=== PATIENT | female | born 1945 | race Caucasian/White ===

== ENCOUNTER 2024-10-10 15:45 | Inpatient (IN) | payer OTHER ==
--- OUTSIDE RECORDS SUMMARY | 2024-10-10 15:55 | XMS REPORT | Continuity of Care Document ---
Author Name Unknown Address [address] 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 Phone JANIS MARKHAM Primary Care Physician Unavailable JANIS MARKHAM Attending Clinician Un available VICTOR M CALDWELL Attending Clinician Unavailable Jorge Luis Mchugh Attending Clinician JORGE LUIS VU Attending Clinician Unavailable Unknown, Attending Attending Clinician Unavailab le Doctor Unassigned, [place] Attending Clinician U Victor M Vega MD Attending Clinician [phone] Dung Poe MD Attending Clinician [phone] DUNG POE Attending Clinician Unavailelizabeth e Bobbi Altman Attending Clinician BOBBI WILSON Attending Clinician Unavailable VICTOR M CALDWELL Admitting Clinician Unavailable Payers Payer Name Policy Type Policy Number Effective Date Expirati on Date Source [employer] MA[employer]GED MEDICARE O-MAYURI [id number] 2020 00:00:00 Problems Condition Name Condition Details Condition Category Status Onset Date Resolution Date Last Treatment Date Treating Clinician Comments Source No known active problems No known active problems Disease [facility] Allergies, Adverse Reactions, Alerts Allergy Name Allergy Type Status Severity Reaction(s) Onset Date Inactive Date Treating Clinician Comments Source jodee Underwood ty to adverse reaction to drug Inactiv e 2024-0 2-19 00:00: 00 Sae Matias Codeine Sulfate - Oral Propensi ty to adverse reaction to drug Active 2021-0230 00:00: 00 Sae Matias Codeine Propensi ty to adverse reaction to drug Inactiv e 05-06 00:00: 00 Sae Matias Codeine Propensi ty to adverse reaction s Active Nausea and/or Vomiting 2017-02 00:00: 00 [facility] CODEINE DRUG INGREDI Active N/V 2017-02 00:00: 00 [facility] Social History Social Habit Start Date Stop Date Quantity Comments Source Exposure to SARS-CoV-2 (event) Not sure [facility] Tobacco use and exposure 2023-06-24 00:00:00 2023-06-24 00:00:00 Smokeless tobacco non-user [facility] History of Social function 2020-10-22 00:00:00 2020-10-22 00:00:00 [facility] Sex assigned at 1945 00:00:00 1945 00:00:00 [facility] Smoking Status Start Date Stop Date Source Never smoked tobacco [facility] Medications Ordered Medication Name Filled Medication Name Start Date Stop Date Current Medication? Ordering Clinician Indication Dosage Frequency Signature (SIG) Comments Components Source ondansetron 4 mg disintegrat ing tablet 10-02 00:00: 00 Yes 1mg Sae Matias fluoxetine 40 mg capsule 10-02 00:00: 00 Yes 1mg Sae Matias atorvastati n 80 mg tablet 09-29 00:00: 00 Yes mg Sae Matias amlodipine 5 mg tablet 09-29 00:00: 00 Yes mg Sae Matias hydrochloro thiazide 25 mg tablet 09-29 00:00: 00 Yes mg Sae Matias losartan 100 mg tablet 09-29 00:00: 00 Yes mg Sae Matias atenolol 50 mg tablet 09-29 00:00: 00 Yes 1mg Sae Matias buspirone 10 mg tablet 09-19 00:00: 00 Yes 1mg Sae Matias zolpidem 10 mg tablet 09-19 00:00: 00 Yes 1mg Sae Matias atorvastati n 80 mg tablet 04-02 00:00: 00 Yes mg Sae Matias amlodipine 5 mg tablet 04-02 00:00: 00 Yes mg Sae Matias hydrochloro thiazide 25 mg tablet 04-02 00:00: 00 Yes mg Sae Matias losartan 100 mg tablet 04-02 00:00: 00 Yes mg Sae Matias atenolol 50 mg tablet 04-02 00:00: 00 Yes 1mg Sae Matias zolpidem 10 mg tablet 04-02 00:00: 00 Yes 1mg Sae Matias atorvastati n 80 mg tablet 2023-02 00:00: 00 Yes mg Sae Matias amlodipine 5 mg tablet 2023-02 00:00: 00 Yes mg Sae Matias omeprazole 20 mg capsule,del ayed release 2023-02 00:00: 00 Yes mg Sae Matias hydrochloro thiazide 25 mg tablet 2023-02 00:00: 00 Yes mg Sae Matias losartan 100 mg tablet 2023-02 00:00: 00 Yes mg Sae Matias triamcinolo ne acetonide 0.1 % topical cream 2023-02 00:00: 00 Yes 1% Sae Matias atenolol 50 mg tablet 2023-02 00:00: 00 Yes 1mg Sae Matias zolpidem 10 mg tablet 2023-02 00:00: 00 Yes 1mg Sae Matias omeprazole 20 mg capsule,del ayed release 16 00:00: 00 Yes mg Sae Matias cholecalcif marie (vitamin D3) 1,250 mcg (50,000 unit) capsule 08-08 00:00: 00 Yes 1(50,00 0 unit) Sae Matias atorvastati n 80 mg tablet 08-05 00:00: 00 Yes mg Sae Matias amlodipine 5 mg tablet 08-05 00:00: 00 Yes mg Sae Matias hydrochloro thiazide 25 mg tablet 08-05 00:00: 00 Yes mg Sae Matias losartan 100 mg tablet 08-05 00:00: 00 Yes mg Sae Matias atenolol 50 mg tablet 08-05 00:00: 00 Yes 1mg Sae Matias ALBUTEROL PA HFA 200 INH 06-23 00:00: 00 Yes Sae Matias TAKE 1 TABLET BY MOUTH IN THE MORNING AND IN THE EVENING FOR 10 DAYS 06-23 00:00: 00 Yes Sae Matias BENZONATATE 200MG 06-23 00:00: 00 Yes Sae Matias benzonatate 200 mg capsule 06-23 00:00: 00 07-04 04:59 :00 No [id number] 200mg Take 1 capsule by mouth 3 (three) times daily as needed for Cough for up to 10 days. [facility] albuterol 90 mcg/actuati on inhaler 06-23 00:00: 00 07-04 04:59 :00 No [id number] 2{puff} Inhale 2 Puffs every 6 (six) hours as needed for Wheezing for up to 10 days. [facility] amoxicillin -clavulanat e (AUGMENTIN) 875-125 mg per tablet 06-23 00:00: 00 07-04 04:59 :00 No [id number] 1{tbl} Take 1 tablet by mouth in the morning and 1 tablet in the evening. Do all this for 10 days. [facility] losartan 100 mg tablet 05-19 00:00: 00 Yes mg Sae Matias atenolol 50 mg tablet 24 00:00: 00 Yes 1mg Sae Matias amlodipine 5 mg tablet - 00:00: 00 Yes mg Sae Matias omeprazole 20 mg capsule,del ayed release 2-20 00:00: 00 Yes mg Sae Matias TAKE 1 TABLET BY MOUTH EVERY DAY -20 00:00: 00 Yes 80 Sae Matias TAKE 1 TABLET DAILY. 2-20 00:00: 00 Yes 25 Sae Catherine Matias hydrochloro thiazide 25 mg tablet 2-01 00:00: 00 Yes mg Sae Catherine Matias atorvastati n 80 mg tablet 1-10 00:00: 00 Yes mg Sae Matias TAKE 1 TABLET DAILY. 1- 00:00: 00 07-03 00:00 :00 No 25 Sae Catherine Matias TAKE 1 TABLET DAILY. 1- 00:00: 00 07-03 00:00 :00 No 5 Sae Catherine Matias 1 TAB BY MOUTH DAILY 1- 00:00: 00 07-03 00:00 :00 No 20 Saevamshi Matias TAKE 1 TABLET DAILY 2022-02 2- 00:00: 00 07-03 00:00 :00 No Sae Catherine Matias HYDROCHLORO T 25MG 2022-02 1- 00:00: 00 07-03 00:00 :00 No Sae Catherine Matias AMLODIPINE 5MG 9-09 00:00: 00 07-03 00:00 :00 No Sae Catherine Matias OMEPRAZOL RX 20MG 9-08 00:00: 00 07-03 00:00 :00 No Sae Catherine Matias losartan 100 mg tablet 8-20 00:00: 00 Yes mg Sae Matias TAKE 1 TABLET DAILY. 8- 00:00: 00 07-03 00:00 :00 No 25 Sae Matias 1 TAB BY MOUTH DAILY 8- 00:00: 00 07-03 00:00 :00 No 20 Sae Catherine Matias ATORVASTATI N 80MG 7-25 00:00: 00 07-03 00:00 :00 No Sae Catherine Matias duloxetine 30 mg capsule,del ayed release -07 00:00: 00 Yes mg Sae Matias TAKE 1 TABLET DAILY. 6-12 00:00: 00 07-03 00:00 :00 No 5 Sae Catherine Matias OMEPRAZOL RX 20MG 6-12 00:00: 00 07-03 00:00 :00 No Sae Matias TAKE 1 CAPSULE BY MOUTH EVERY MORNING 6-09 00:00: 00 Yes Sae Matias ATORVASTATI N 80MG 4-28 00:00: 00 07-03 00:00 :00 No Sae Matias DULOXETINE 30MG DR 4-17 00:00: 00 Yes [id number] Sae Matias TAKE 1 TABLET BY MOUTH EVERY DAY AT BEDTIME NEEDED - 00:00: 00 Yes Sae Matias TAKE 1 CAPSULE IN THE MORNING - 00:00: 00 07-03 00:00 :00 No 30 Sae Matias TAKE 1 TABLET BY MOUTH EVERY DAY - 00:00: 00 07-03 00:00 :00 No Sae Matias TAKE 1 TABLET DAILY. 3- 00:00: 00 07-03 00:00 :00 No 25 Sae Matias LOSARTAN 100MG 3-04 00:00: 00 Yes [id number] Sae Matias HYDROCHLORO T 25MG 3-04 00:00: 00 07-03 00:00 :00 No [id number] Sae Matias TRIAMT/HCTZ 37.5-25 2-26 00:00: 00 Yes Sae Matias OMEPRAZOL RX 20MG 2021-02 2- 00:00: 00 07-03 00:00 :00 No Sae Matias TAKE 1 TABLET BY MOUTH EVERY DAY AT BEDTIME NEEDED 2021-02- 00:00: 00 Yes Sae Matias LOSARTAN 100MG 2021-02 2 00:00: 00 Yes Sae Matias TAKE 1 TABLET DAILY. 2021-02 00:00: 00 07-03 00:00 :00 No 25 Sae Matias TAKE 1 TABLET DAILY. 2021-02 2- 00:00: 00 07-03 00:00 :00 No 80 Sae Matias ATENOLOL 50MG TAB 2021-02 2-05 00:00: 00 Yes Sae Matias TRIAMT/HCTZ 37.5-25 1 1-29 00:00: 00 Yes Sae Matias ATORVASTATI N 80MG 2021-02 0- 00:00: 00 07-03 00:00 :00 No [id number] Sae Matias OMEPRAZOLE 20MG 2021-0 9 00:00: 00 07-03 00:00 :00 No [id number] Sae Matias TRAMADOL HCL 50MG 2021-0 11-03 00:00: 00 Yes [id number] Sae Matias TAKE 1 CAPSULE BY MOUTH THREE TIMES A DAY STARTING ONE HOUR BEFORE SURGERY APPOINTMENT 0 11-03 00:00: 00 Yes Sae Matias ATENOLOL 50MG 2021-0 10-25 00:00: 00 Yes Sae Matias AMOXICILLIN 500MG 0 10-20 00:00: 00 Yes [id number] Sae Matias TAKE 1 TABLET BY MOUTH EVERY DAY IN THE MORNING 2021-0 - 00:00: 00 Yes 40 Sea Matias TAKE 1 TABLET BY MOUTH EVERYDAY AT BEDTIME 2021-0 - 00:00: 00 Yes 15 Sae Matias TAKE 1 TABLET BY MOUTH EVERY DAY 2021-0 8- 00:00: 00 Yes 100 Sae Matias &lt 2021-0 8 00:00: 00 Yes Sae Matias TAKE 1 TABLET BY MOUTH EVERY DAY 2021-0 10-03 00:00: 00 Yes 50 Sae Matias TAKE 1 TABLET BY MOUTH EVERY DAY 2021-0 8- 00:00: 00 Yes 5 Sae Matias &lt 2021-0 8- 00:00: 00 Yes 40 Sae Matias TAKE 1 CAPSULE BY MOUTH EVERY DAY IN THE MORNING 2021-0 8- 00:00: 00 Yes Sae Matias TAKE 1 TABLET BY MOUTH EVERY DAY 2021-0 8 00:00: 00 Yes 100 Sae Matias TAKE 1 CAPSULE BY MOUTH 3 TIMES A WEEK 2021-0 09-21 00:00: 00 Yes Sae Matias FLUTICASONE PROPIONATE 50MCG RX SPR 2021-0 7- 00:00: 00 Yes [id number] Sae Matias &lt 2021-0 6- 00:00: 00 Yes Sae Matias atorvastati n 80 mg tablet 07-20 00:00: 00 Yes 1mg Sae Matias TRIAMTERENE /HYDROCHLOR OTH 37.5-25 06-20 00:00: 00 Yes Sae Matias LOSARTAN POTASSIUM 100MG 06-20 00:00: 00 Yes [id number] Sae Matias FLUTICASONE PROPIONATE 50MCG RX SPR 06-20 00:00: 00 Yes [id number] Sae Matias losartan 100 mg tablet 06-08 00:00: 00 Yes 1mg Sae Matias atenolol 50 mg tablet 06-08 00:00: 00 Yes 1mg Sae Matias atorvastati n 40 mg tablet 06-08 00:00: 00 Yes 15mg Sae Matias Flonase Allergy Relief 50 mcg/actuati on nasal spray,suspe nsion 06-08 00:00: 00 Yes 2mcg/ac tuation Sae Matias omeprazole 20 mg capsule,del ayed release 06-08 00:00: 00 Yes 1mg Sae Matias triamterene 37.5 mg-hydrochl orothiazide 25 mg capsule 06-08 00:00: 00 Yes 1mg Sae Matias SPRAY 2 SQUIRTS IN EACH NOSTRIL EVERY MORNING 06-08 00:00: 00 Yes Sae Matias iohexol (OMNIPAQUE 350 BULK-150 mL) injection 140 mL 03-31 20:30: 00 03-31 20:27 :00 No [id number] 140mL 140 mL, Intravenou s, ONCE, 1 dose, On Constanza 03/31/21 at 1430, Routine [facility] Dose Unknown 03-23 00:00: 00 Yes Sae Matias Dose Unknown 03-22 00:00: 00 Yes Sae Matias Dose Unknown 03-22 00:00: 00 Yes Sae Matias atorvastati n 40 mg tablet 03-22 00:00: 00 Yes 1mg Sae Matias Dose Unknown 03-22 00:00: 00 Yes Sae Matias Dose Unknown 03-22 00:00: 00 Yes Sae Matias Dose Unknown 03-22 00:00: 00 Yes Sae Matias Dose Unknown 2020-02 00:00: 00 Yes Sae Matias triamcinolo ne acetonide (KENALOG) injection 40 mg 11-12 17:00: 00 11-12 15:56 :00 No [id number] 40mg [facility] famotidine 40 mg tablet 10-18 00:00: 00 Yes [facility] mirtazapine 15 mg tablet 10-11 00:00: 00 Yes 15mg Take 1 tablet by mouth at bedtime. [facility] amLODIPine 5 mg tablet 09-13 00:00: 00 Yes 5mg Take 1 tablet by mouth in the morning. [facility] fluticasone propionate 50 mcg/actuati on nasal spray 09-13 00:00: 00 Yes SPRAY 2 SQUIRTS IN THE NOSTRILS IN THE MORNING [facility] atenolol 50 mg tablet 09-13 00:00: 00 Yes 1mg Sae Matias amlodipine 5 mg tablet 09-13 00:00: 00 Yes 1mg Sae Matias losartan 100 mg tablet 09-13 00:00: 00 Yes 1mg Sae Matias Remeron 15 mg tablet 09-13 00:00: 00 Yes 1mg Sae Matias atorvastati n 40 mg tablet 09-13 00:00: 00 Yes 1mg Sae Matias Dose Unknown 09-13 00:00: 00 Yes Sae Matias triamterene 37.5 mg-hydrochl orothiazide 25 mg capsule 09-13 00:00: 00 Yes 1mg Sae Matias atorvastati n 40 mg tablet 09-03 00:00: 00 Yes 40mg Take 1 tablet by mouth every morning. [facility] losartan 100 mg tablet 08-04 00:00: 00 Yes 100mg Take 1 tablet by mouth in the morning. [facility] amlodipine 5 mg tablet 05-19 00:00: 00 Yes 1mg Sae Matias atenolol 50 mg tablet 05-19 00:00: 00 Yes 1mg Sae Matias atorvastati n 40 mg tablet 05-19 00:00: 00 Yes 1mg Sae Matias Flonase Allergy Relief 50 mcg/actuati on nasal spray,suspe nsion 05-19 00:00: 00 Yes 2mcg/ac tuation Sae Matias omeprazole 20 mg capsule,del ayed release 05-19 00:00: 00 Yes 1mg Sae Matias triamterene 37.5 mg-hydrochl orothiazide 25 mg capsule 05-19 00:00: 00 Yes 1mg Sae Matias gadoteridol (PROHANCE-1 5 mL) injection 0.2 mL/kg 05-11 19:15: 00 05-11 19:30 :00 No [id number] .2mL/kg 0.2 mL/kg, Intravenou s, ONCE, 1 dose, Sun05/11/20 at 1415, Routine [facility] buspirone 10 mg tablet 04-26 00:00: 00 Yes 1mg Sae Matias atorvastati n 40 mg tablet 03-11 00:00: 00 Yes 1mg Sae Matias amlodipine 5 mg tablet 2019-02 00:00: 00 Yes 1mg Sae Matias buspirone 10 mg tablet 2019-02 00:00: 00 Yes 1mg Sae Matias fluoxetine 40 mg capsule 2019-02 00:00: 00 Yes 1mg Sae Matias dicyclomine (BENTYL) tablet 20 mg 2019-02 00:30: 00 01-22 23:30 :00 No 20mg 20 mg, Oral, ONCE, 1 dose, Sun01/23/20 at 1830, Routine [facility] metroNIDAZO LE (FLAGYL) tablet 500 mg 2019-02 00:30: 00 01-22 23:30 :00 No 500mg 500 mg, Oral, ONCE, 1 dose, Sun01/23/20 at 1830, Routine
Reason for Anti-Infec tive: Documented Infection< br>Documen darlene Infection Site: Abdominal< br>Duratio n of Therapy: 10 days [facility] ciprofloxac in HCl (CIPRO) tablet 500 mg 2019-02 00:30: 00 01-22 23:30 :00 No 500mg 500 mg, Oral, ONCE, 1 dose, Sun01/23/20 at 1830, SURAJ
Re stricted use approved by: ADC PROVIDER<b r>Reason for Anti-Infec tive: Documented Infection< br>Documen darlene Infection Site: Abdominal< br>Duratio n of Therapy: 10 days [facility] iohexol (OMNIPAQUE 350 BULK-150 mL) injection 120 mL 2019-02 22:00: 00 01-22 21:48 :00 No 120mL 120 mL, Intravenou s, ONCE, 1 dose, Sun01/23/20 at 1600, Routine [facility] metroNIDAZO LE 500 mg tablet 2019-02 00:00: 00 Yes [id number] 500mg Take 1 tablet by mouth every 8 (eight) hours. [facility] proMETHazin e 25 mg tablet 2019-02 00:00: 00 Yes [id number] 25mg Take 1 tablet by mouth every 6 (six) hours as needed for Nausea and Vomiting (N/V). [facility] dicyclomine 20 mg tablet 2019-02 00:00: 00 Yes [id number] 20mg Take 1 tablet by mouth 4 (four) times daily as needed for Abdominal pain. [facility] ciprofloxac in HCl 500 mg tablet 2019-02 00:00: 00 02-02 05:59 :00 No [id number] 500mg Take 1 tablet by mouth 2 (two) times daily for 10 days. [facility] Flonase Allergy Relief 50 mcg/actuati on nasal spray,suspe nsion 2019-02 00:00: 00 Yes 2mcg/ac tuation Sae Matias amlodipine 5 mg tablet 2019-02 0 00:00: 00 Yes 1mg Sae Matias atenolol 50 mg tablet 0 11-05 00:00: 00 Yes 1mg Sae Matias amlodipine 5 mg tablet 11-05 00:00: 00 Yes 1mg Sae Matias buspirone 10 mg tablet 11-05 00:00: 00 Yes 1mg Sae Matias omeprazole 20 mg capsule,del ayed release 11-05 00:00: 00 Yes 1mg Sae Matias triamterene 37.5 mg-hydrochl orothiazide 25 mg capsule 11-05 00:00: 00 Yes 1mg Sae Matias losartan 100 mg tablet 08-06 00:00: 00 Yes 1mg Sae Matias buspirone 10 mg tablet 6 00:00: 00 Yes 1mg Sae Matias Flonase Allergy Relief 50 mcg/actuati on nasal spray,suspe nsion 0 6- 00:00: 00 Yes 2mcg/ac tuation Sae Matias atenolol 50 mg tablet 05-06 00:00: 00 Yes 1mg Sae Matias buspirone 10 mg tablet 05-06 00:00: 00 Yes 1mg Sae Matias atorvastati n 40 mg tablet 11 00:00: 00 Yes 1mg Sae Matias losartan 50 mg tablet 05-06 00:00: 00 Yes 1mg Sae Matias Flonase Allergy Relief 50 mcg/actuati on nasal spray,suspe nsion 05-06 00:00: 00 Yes 2mcg/ac tuation Sae Matias omeprazole 20 mg capsule,del ayed release 0 -11 00:00: 00 Yes 1mg Sae Matias fluoxetine 40 mg capsule -11 00:00: 00 Yes 1mg Sae Matias triamterene 37.5 mg-hydrochl orothiazide 25 mg capsule 0 3-11 00:00: 00 Yes 1mg Sae Matias omeprazole 20 mg capsule 2017-02 2-19 19:20: 55 Yes 20mg Take 20 mg by mouth daily. [facility] atenolol 50 mg tablet 2017-02 19:20: 55 Yes 50mg Take 50 mg by mouth daily. [facility] simvastatin 40 mg tablet 2017-02 19:20: 55 Yes 40mg Take 40 mg by mouth at bedtime. [facility] FLUoxetine 20 mg capsule 2017-02 19:20: 55 Yes 20mg Take 20 mg by mouth daily. [facility] zolpidem 5 mg tablet 2017-02 19:20: 55 Yes 10mg Take 10 mg by mouth at bedtime as needed for Insomnia. [facility] diazePAM 10 mg tablet 2017-02 19:20: 55 Yes 10mg Take 10 mg by mouth 3 (three) times daily. [facility] omeprazole 20 mg capsule 2017-02 13:20: 55 Yes 20mg Take 1 capsule by mouth in the morning. [facility] atenolol 50 mg tablet 2017-02 13:20: 55 Yes 50mg Take 1 tablet by mouth in the morning. [facility] simvastatin 40 mg tablet 2017-02 13:20: 55 Yes 40mg Take 1 tablet by mouth at bedtime. [facility] FLUoxetine 20 mg capsule 2017-02 13:20: 55 Yes 20mg Take 1 capsule by mouth in the morning. [facility] zolpidem 5 mg tablet 2017-02 13:20: 55 Yes 10mg Take 2 tablets by mouth at bedtime as needed for Insomnia. [facility] diazePAM 10 mg tablet 2017-02 13:20: 55 Yes 10mg Take 1 tablet by mouth in the morning and 1 tablet at noon and 1 tablet in the evening. [facility] Immunizations Ordered Immunization Name Filled Immunization Name Date Status Comments Source RSV Respiratory syncytial virus vaccine RSV Respiratory syncytial virus vaccine 2024-04-02 00:00:00 Completed Sae Matias influenza, seasonal vaccine, quadrivalent, adjuvanted, .5mL dose, preservative-free influenza, seasonal vaccine, quadrivalent, adjuvanted, .5mL dose, preservative-free 2024-01-02 00:00:00 Completed Sae Matias influenza, seasonal vaccine, quadrivalent, adjuvanted, .5mL dose, preservative-free influenza, seasonal vaccine, quadrivalent, adjuvanted, .5mL dose, preservative-free 2022-11-27 00:00:00 Completed Sae Matias influenza, seasonal vaccine, quadrivalent, adjuvanted, .5mL dose, preservative-free influenza, seasonal vaccine, quadrivalent, adjuvanted, .5mL dose, preservative-free 2022-02-01 00:00:00 Completed Sae Matias Moderna COVID-19 Vaccine Moderna COVID-19 Vaccine 2021-10-04 00:00:00 Completed Sae Catherine Matias influenza, high-dose, quadrivalent influenza, high-dose, quadrivalent 2021-03-22 00:00:00 Completed Sae Matias Moderna COVID-19 Vaccine Moderna COVID-19 Vaccine 2020-12-20 00:00:00 Completed Sae Matias Moderna COVID-19 Vaccine Moderna COVID-19 Vaccine 2020-04-24 00:00:00 Completed Sae Matias Moderna COVID-19 Vaccine Moderna COVID-19 Vaccine 2020-03-27 00:00:00 Completed Sae Catherine Matias Pneumococcal conjugate P Pneumococcal conjugate P Unknown Completed Sae Catherine Matias zoster zoster Unknown Completed Sae Matias Influenza, seasonal, inj Influenza, seasonal, inj Unknown Completed Sae Matias Vital Signs Vital Name Observation Time Observation Value Comments S ource Systolic blood pressure 2023-06-24 23:04:00 120 mm[Hg] [place] [facility] Diastolic blood pressure 2023-06-24 23:04:00 63 mm[Hg] [facility] Heart rate 2023-06-24 23:04:00 70 /min [facility] Body temperature 2023-06-24 23:04:00 36.61 [facility] Respiratory rate 2023-06-24 23:04:00 16 /min [facility] Body weight 2023-06-24 23:04:00 60.782 kg [facility] BMI 2023-06-24 23:04:00 24.51 kg/m2 [facility] Oxygen saturation in Arterial blood by Pulse oximetry 2023-06-24 23:04:00 94 /min [facility] Systolic blood pressure 2020-11-12 14:34:00 141 mm[Hg] [facility] Diastolic blood pressure 2020-11-12 14:34:00 74 mm[Hg] [facility] Heart rate 2020-11-12 14:34:00 60 /min [facility] Body height 2020-11-12 14:34:00 157.5 cm [facility] Body weight 2020-11-12 14:34:00 65.772 kg [facility] BMI 2020-11-12 14:34:00 26.52 kg/m2 [facility] Systolic blood pressure 2020-01-23 23:30:00 155 mm[Hg] [facility] Diastolic blood pressure 2020-01-23 23:30:00 98 mm[Hg] [facility] Heart rate 2020-01-23 23:30:00 63 /min [facility] Respiratory rate 2020-01-23 23:30:00 18 /min [facility] Oxygen saturation in Arterial blood by Pulse oximetry 2020-01-23 23:30:00 99 /min [facility] Body temperature 2020-01-23 20:37:00 37.11 [facility] Body weight 2020-01-23 20:37:00 62.143 kg [facility] BMI 2020-01-23 20:37:00 25.06 kg/m2 [facility] BP Systolic 2024-09-02 14:32:00 107 mm[Hg] Step vamshi Matias BP Diastolic 2024-09-02 14:32:00 63 mm[Hg] Dion phen F Florencio Weight Measured 2024-09-02 14:32:00 127.00 pounds Sae Matias Height Measured 2024-09-02 14:32:00 62.00 inches Sae Matias Body Temperature 2024-09-02 14:32:00 98.00 degrees Sae F Florencio Heart Rate 2024-09-02 14:32:00 71.00 /min Jeanie en F Florencio Respiratory Rate 2024-09-02 14:32:00 Sae F Florencio BP Systolic 2024-06-18 15:09:00 124 mm[Hg] Step hen F Florencio BP Diastolic 2024-06-18 15:09:00 72 mm[Hg] Dion phen F Florencio Weight Measured 2024-06-18 15:09:00 134.20 pounds Sae F Florencio Height Measured 2024-06-18 15:09:00 62.00 inches Sae F Florencio Body Temperature 2024-06-18 15:09:00 98.20 degrees Sae F Florencio Heart Rate 2024-06-18 15:09:00 60.00 /min Jeanie en F Florencio Respiratory Rate 2024-06-18 15:09:00 Sae F Florencio BP Systolic 2024-04-02 14:17:00 156 mm[Hg] Step hen F Florencio BP Diastolic 2024-04-02 14:17:00 76 mm[Hg] Dion phen F Florencio Weight Measured 2024-04-02 14:17:00 135.40 pounds Sae F Florencio Height Measured 2024-04-02 14:17:00 62.00 inches Sae F Florencio Body Temperature 2024-04-02 14:17:00 97.90 degrees Sae F Florencio Heart Rate 2024-04-02 14:17:00 74.00 /min Jeanie en F Florencio Respiratory Rate 2024-04-02 14:17:00 Sae F Florencio BP Systolic 2024-01-02 16:26:00 152 mm[Hg] Step hen F Florencio BP Diastolic 2024-01-02 16:26:00 79 mm[Hg] Dion phen F Florencio Weight Measured 2024-01-02 16:26:00 135.60 pounds Sae F Florencio Height Measured 2024-01-02 16:26:00 62.00 inches Sae F Florencio Body Temperature 2024-01-02 16:26:00 97.90 degrees Sae F Florencio Heart Rate 2024-01-02 16:26:00 66.00 /min Jeanie en F Florencio Respiratory Rate 2024-01-02 16:26:00 Sae F Florencio BP Systolic 2024-01-02 15:51:00 152 mm[Hg] Step hen F Florencio BP Diastolic 2024-01-02 15:51:00 79 mm[Hg] Dion phen F Florencio Weight Measured 2024-01-02 15:51:00 135.60 pounds Sae F Florencio Height Measured 2024-01-02 15:51:00 62.00 inches Sae F Florencio Body Temperature 2024-01-02 15:51:00 97.90 degrees Sae F Florencio Heart Rate 2024-01-02 15:51:00 66.00 /min Jeanie en F Florencio Respiratory Rate 2024-01-02 15:51:00 Sae F Florencio BP Systolic 2023-08-06 15:32:00 151 mm[Hg] Step hen F Florencio BP Diastolic 2023-08-06 15:32:00 75 mm[Hg] Dion phen F Florencio Weight Measured 2023-08-06 15:32:00 135.60 pounds Sae F Florencio Height Measured 2023-08-06 15:32:00 62.00 inches Sae F Florencio Body Temperature 2023-08-06 15:32:00 98.10 degrees Sae F Florencio Heart Rate 2023-08-06 15:32:00 67.00 /min Jeanie en F Florencio Respiratory Rate 2023-08-06 15:32:00 Sae F Florencio BP Systolic 2023-03-07 13:35:00 102 mm[Hg] Step hen F Florencio BP Diastolic 2023-03-07 13:35:00 62 mm[Hg] Dion phen F Florencio Weight Measured 2023-03-07 13:35:00 133.40 pounds Sae F Florencio Height Measured 2023-03-07 13:35:00 62.00 inches Sae F Florencio Body Temperature 2023-03-07 13:35:00 98.00 degrees Sae F Florencio Heart Rate 2023-03-07 13:35:00 63.00 /min Jeanie en F Florencio Respiratory Rate 2023-03-07 13:35:00 Sae F Florencio BP Systolic 2022-12-04 09:59:00 127 mm[Hg] Step hen F Florencio BP Diastolic 2022-12-04 09:59:00 74 mm[Hg] Dion phen F Florencio Weight Measured 2022-12-04 09:59:00 135.80 pounds Sae F Florencio Height Measured 2022-12-04 09:59:00 62.00 inches Sae F Florencio Body Temperature 2022-12-04 09:59:00 97.70 degrees Sae F Florencio Heart Rate 2022-12-04 09:59:00 80.00 /min Jeanie en F Florencio Respiratory Rate 2022-12-04 09:59:00 Sae F Florencio BP Systolic 2022-11-27 11:12:00 174 mm[Hg] Step hen F Florencio BP Diastolic 2022-11-27 11:12:00 81 mm[Hg] Dion phen F Florencio Weight Measured 2022-11-27 11:12:00 137.60 pounds Sae F Florencio Height Measured 2022-11-27 11:12:00 62.00 inches Sae F Florencio Body Temperature 2022-11-27 11:12:00 97.10 degrees Sae F Florencio Heart Rate 2022-11-27 11:12:00 59.00 /min Jeanie en F Florencio Respiratory Rate 2022-11-27 11:12:00 17.00 /min Sae F Florencio BP Systolic 2022-08-08 10:23:00 147 mm[Hg] Step hen F Florencio BP Diastolic 2022-08-08 10:23:00 83 mm[Hg] Dion phen F Florencio Weight Measured 2022-08-08 10:23:00 134.00 pounds Sae F Florencio Height Measured 2022-08-08 10:23:00 62.00 inches Sae F Florencio Body Temperature 2022-08-08 10:23:00 97.50 degrees Sae F Florencio Heart Rate 2022-08-08 10:23:00 66.00 /min Jeanie en F Florencio Respiratory Rate 2022-08-08 10:23:00 Sae F Florencio BP Systolic 2022-07-31 11:28:00 160 mm[Hg] Step hen F Florencio BP Diastolic 2022-07-31 11:28:00 80 mm[Hg] Dion phen F Florencio Weight Measured 2022-07-31 11:28:00 134.00 pounds Sae F Florencio Height Measured 2022-07-31 11:28:00 62.00 inches Sae F Florencio Body Temperature 2022-07-31 11:28:00 98.10 degrees Sae F Florencio Heart Rate 2022-07-31 11:28:00 81.00 /min Jeanie en F Florencio Respiratory Rate 2022-07-31 11:28:00 17.00 /min Sae F Florencio BP Systolic 2022-05-11 09:58:00 135 mm[Hg] Step hen F Florencio BP Diastolic 2022-05-11 09:58:00 81 mm[Hg] Dion phen F Florencio Weight Measured 2022-05-11 09:58:00 Sae F Florencio Height Measured 2022-05-11 09:58:00 Sae F Florencio Body Temperature 2022-05-11 09:58:00 Sae F Florencio Heart Rate 2022-05-11 09:58:00 74.00 /min Jeanie en F Florencio Respiratory Rate 2022-05-11 09:58:00 Sae F Florencio BP Systolic 2022-05-01 11:11:00 167 mm[Hg] Step hen F Florencio BP Diastolic 2022-05-01 11:11:00 75 mm[Hg] Dion phen F Florencio Weight Measured 2022-05-01 11:11:00 140.60 pounds Sae F Florencio Height Measured 2022-05-01 11:11:00 62.00 inches Sae F Florencio Body Temperature 2022-05-01 11:11:00 98.30 degrees Sae F Florencio Heart Rate 2022-05-01 11:11:00 90.00 /min Jeanie en F Florencio Respiratory Rate 2022-05-01 11:11:00 Sae F Florencio BP Systolic 2022-02-01 10:28:00 174 mm[Hg] Step hen F Florencio BP Diastolic 2022-02-01 10:28:00 81 mm[Hg] Dion phen F Florencio Weight Measured 2022-02-01 10:28:00 145.80 pounds Sae F Florencio Height Measured 2022-02-01 10:28:00 62.00 inches Sae F Florencio Body Temperature 2022-02-01 10:28:00 97.80 degrees Sae F Florencio Heart Rate 2022-02-01 10:28:00 72.00 /min Jeanie en F Florencio Respiratory Rate 2022-02-01 10:28:00 Sae F Florencio BP Systolic 2021-10-03 16:06:00 155 mm[Hg] Step hen F Florencio BP Diastolic 2021-10-03 16:06:00 73 mm[Hg] Dion phen F Florencio Weight Measured 2021-10-03 16:06:00 142.60 pounds Sae Matias Height Measured 2021-10-03 16:06:00 62.00 inches Sae Matias Body Temperature 2021-10-03 16:06:00 98.10 degrees Sae Matias Heart Rate 2021-10-03 16:06:00 85.00 /min Jeanie Matias Respiratory Rate 2021-10-03 16:06:00 Sae Matias Procedures Procedure Date / Time Performed Performing Clinician Source XR CHEST 2 VW 2023-06-24 23:35:00 Jorge Luis Vu [facility] REFERRAL- REQUEST/RESPONSE 2022-05-30 05:01:00 Fátima timmons Unassigned, [facility] HB CREATININE BLOOD 2021-03-31 20:07:00 Victor M Caldwell [facility] CONSENT/REFUSAL FOR DIAGNOSIS AND TREATMENT 2021-03-31 19:39:27 Doctor Unassigned, [facility] ASSIGNMENT OF BENEFITS 2021-03-31 19:39:04 Docto r Unassigned, [facility] MR KNEE RIGHT WO CONTRAST 2020-11-05 22:00:34 Dung Poe [facility] MR ABDOMEN W WO CONTRAST 2020-05-11 19:52:10 Zenon Caldwell am [facility] NOTICE OF BILLING PRACTICES FOR MEDICARE PATIENTS 2020-05-11 18:49:26 Doctor Unassigned, [facility] PATIENT FINANCIAL POLICY 2020-05-11 18:49:10 Doctor Unassigned, [facility] NO SHOW OR MISSED APPOINTMENT POLICY ACKNOWLEDGEMENT 2020-05-11 18:48:44 Doctor Unassigned, [facility] NO SHOW OR MISSED APPOINTMENT POLICY ACKNOWLEDGEMENT 2020-05-11 18:48:26 Doctor Unassigned, [facility] CONSENT/REFUSAL FOR DIAGNOSIS AND TREATMENT 2020-05-11 18:48:06 Doctor Unassigned, [facility] ASSIGNMENT OF BENEFITS 2020-05-11 18:47:48 Docto r Unassigned, [facility] CT ABDOMEN PELVIS W CONTRAST 2020-01-23 21:56:33 Bobbi Wilson [facility] LIPASE 2020-01-23 20:49:00 Haseeb Spivey [facility] COMP. METABOLIC PANEL ([id number]) 2020-01-23 20:49:00 Haseeb Spivey [facility] CBC WITH DIFF 2020-01-23 20:49:00 Haseeb Spivey [facility] URINALYSIS 2020-01-23 20:49:00 Haseeb Spivey [facility] NOTICE OF PRIVACY PRACTICES 2020-01-23 20:25:26 Doctor Unassigned, [facility] CONSENT/REFUSAL FOR DIAGNOSIS AND TREATMENT 2020-01-23 20:25:10 Doctor Unassigned, [facility] Encounters Start Date/Time End Date/Time Encounter Type Admission Type Attending [facility] Care Facility Care Department Encounter ID Source 2023-08-22 15:24:00 Outpatient VICKI MARKHAM I [facility] [id number] [facility] 2022-06-15 16:45:01 Outpatient VICKI MARKHAM I [facility] ST[facility] [id number] [facility] 2022-06-12 15:22:01 Outpatient VICKI MARKHAM I [facility]ML[facility] ST[facility] [id number] [facility] 2021-05-04 08:39:03 Outpatient [facility] [id number] [facility] 2021-04-20 14:30:05 Outpatient [facility] ST[facility] [id number] [facility] 2024-10-03 10:36:04 2024-10-03 10:36:04 Outpatient SFA [facility] [id number] Sae Matias 2024-10-02 11:36:53 2024-10-02 11:36:53 Outpatient SFA [facility] [id number] Sae Matias 2024-10-02 00:00:00 2024-10-02 00:00:00 Outpatient Visit SFA [id number] Sae Matias 2024-09-19 14:41:12 2024-09-19 14:41:12 Outpatient SFA [facility] [id number] Sae Matias 2024-09-19 00:00:00 2024-09-19 00:00:00 Outpatient Visit SFA [id number] Sae Matias 2024-09-02 14:24:28 2024-09-02 14:24:28 Outpatient SFA S[facility] [id number] Sae Matias 2024-09-02 00:00:00 2024-09-02 00:00:00 Outpatient Visit SFA [id number] Sae Matias 2024-06-18 15:06:03 2024-06-18 15:06:03 Outpatient SFA SFA [id number] Sae Matias 2024-06-18 00:00:00 2024-06-18 00:00:00 Outpatient Visit SFA [id number] Sae Matias 2024-04-04 09:33:29 2024-04-04 09:33:29 Outpatient SFA SFA [id number] Sae Matias 2024-04-02 14:16:59 2024-04-02 14:16:59 Outpatient SFA S[facility] [id number] Sae Matias 2024-04-02 00:00:00 2024-04-02 00:00:00 Outpatient Visit SFA [id number] Sae Matias 2024-01-02 15:47:58 2024-01-02 15:47:58 Outpatient SFA SFA [id number] Sae Matias 2024-01-02 00:00:2024-01-02 00:00:00 Outpatient Visit SFA [id number] Sae Matias 2023-10-30 00:00:00 2023-10-30 00:00:00 Outpatient VICTOR M FOSTER [facility] [id number] [facility] 2023-10-24 00:00:00 2023-10-24 00:00:00 Outpatient Robb [facility] [id number] [facility] 2023-08-08 09:06:24 2023-08-08 09:06:24 Outpatient S[facility] [id number] Sae Matias 2023-08-06 15:25:27 2023-08-06 15:25:27 Outpatient [facility] [id number] Sae Matias 2023-08-06 00:00:00 2023-08-06 00:00:00 Outpatient Visit [facility] [id number] Sae Matias 2023-07-17 00:00:00 2023-07-17 10:42:54 [facility] [id number] 350.1.13.10 4.2.7.2.686 [id number] [facility] 2023-06-24 18:14:47 2023-06-24 23:59:00 Hospital Encounter [facility] [id number] 350.1.13.10 4.2.7.2.686 [id number] [facility] 2023-06-24 18:00:00 2023-06-24 18:17:42 Outpatient R MIRELLA [facility] [id number] [facility] 2023-06-24 18:00:00 2023-06-24 18:17:42 Urgent Care Jorge Luis Vu Unknown, Attending [facility] [id number] 350.1.13.10 4.2.7.2.686 [id number] [facility] 2023-03-07 13:34:06 2023-03-07 13:34:06 Outpatient [facility] [id number] Sae Matias 2022-12-04 09:59:19 2022-12-04 09:59:19 Outpatient [facility] [id number] Sae Alexander Florencio 2022-11-27 10:57:40 2022-11-27 10:57:40 Outpatient [facility] [id number] Sae Alexander Florencio 2022-08-08 10:17:37 2022-08-08 10:17:37 Outpatient [facility] [id number] Sae Alexander Florencio 2022-08-07 17:51:48 2022-08-07 17:51:48 Outpatient [facility] [id number] Sae Alexander [place] 2022-07-31 11:19:31 2022-07-31 11:19:31 Outpatient [facility] [id number] Sae Alexander Florencio 2022-05-30 00:00:00 2022-05-30 00:00:00 Orders Only Doctor Unassigned, [facility] [id number] 350.1.13.10 4.2.7.2.686 [id number] [facility] 2022-05-11 09:52:17 2022-05-11 09:52:17 Outpatient SFA [facility] [id number] Sae Alexander Florencio 2022-05-01 11:08:38 2022-05-01 11:08:38 Outpatient [facility] [id number] Sae Alexander Florencio 2022-02-01 10:23:36 2022-02-01 10:23:36 Outpatient [facility] [id number] Sae Matias 2021-11-22 00:00:00 2021-11-22 00:00:00 Outpatient R [facility] [id number] [facility] 2021-03-31 13:47:08 2021-03-31 23:59:00 Outpatient R VICTOR M CALDWELL [facility] [id number] [facility] 2021-03-31 13:47:08 2021-03-31 23:59:00 Hospital Encounter Victor M Caldwell [facility] [id number] 350.1.13.10 4.2.7.2.686 [id number] [facility] 2020-11-12 09:28:08 2020-11-12 10:01:00 Office Visit Dung Poe [facility] 1.2.840.114 350.1.13.10 4.2.7.2.686 [id number] [facility] 2020-11-12 09:45:00 2020-11-12 09:45:00 Outpatient R DUNG POE [facility] [id number] [facility] 2020-11-12 09:45:00 2020-11-12 09:45:00 Outpatient R DUNG POE [facility] [id number] [facility] 2020-11-05 14:06:14 2020-11-05 23:59:00 Hospital Encounter Dung Poe [facility] 1.2840.114 350.1.13.10 4.2.7.2.686 [id number] [facility] 2020-11-05 14:06:14 2020-11-05 23:59:00 Hospital Encounter Dung Poe [facility] 1.2840.114 350.1.13.10 4.2.7.2.686 [id number] [facility] 2020-11-05 00:00:00 2020-11-05 00:00:00 Outpatient R DUNG POE [facility] [id number] [facility] 2020-10-22 09:02:11 2020-10-22 23:59:00 Hospital Encounter Dung Poe [facility] 1.2.840.114 350.1.13.10 4.2.7.2.686 [id number] [facility] 2020-10-22 10:00:00 2020-10-22 10:00:00 Outpatient R DUNG POE [facility] [id number] [facility] 2020-10-22 08:52:08 2020-10-22 09:51:18 Office Visit Dung Poe [facility] 1.2.840.114 350.1.13.10 4.2.7.2.686 [id number] [facility] 2020-05-11 13:47:27 2020-05-11 23:59:00 Hospital Encounter Victor M Caldwell [facility] 1.2.840.114 350.1.13.10 4.2.7.2.686 [id number] [facility] 2020-05-11 00:00:00 2020-05-11 00:00:00 Outpatient R VICTOR M CALDWELL [facility] [id number] [facility] 2020-01-23 14:31:00 2020-01-23 17:47:00 Emergency Bobbi Wilson [facility] [id number] 350.1.13.10 4.2.7.2.686 [id number] [facility] 2020-01-23 14:31:00 2020-01-23 14:31:00 Emergency X BOBBI WILSON [facility] [id number] [facility] 2020-01-23 00:00:00 2020-01-23 00:00:00 Orders Only Doctor Unassigned, [place] [id number] 350.1.13.10 4.2.7.2.686 [id number] [facility] Results Test Description Test Time Test Comments Results Result Co mments Source COMPREHENSIVE METABOLIC [id number] 03:02:05* Test Item Value Reference Range Interpretation Comme nts GLUCOSE (test code = 2217) 108 MG/DL 70-99 H BUN (test code = 2208) 11 MG/DL 8-23 CREATININE (test code = 2214) 0.84 MG/DL 0.60-1.30 eGFR (2020 CKD-EPI) (test co de = 07044) 71 ML/MIN/1.73 >60 CALC BUN/CREAT (test code = 2235) 13 RATIO 6-28 SODIUM (test code = 2231) 138 MEQ/L 133-146 POTASSIUM (test code = 2228) 3.7 MEQ/L 3.5-5.4 CHLORIDE (test code = 2215) 101 MEQ/L 95-107 CARBON DIOXIDE (test code = 2206) 25 MEQ/L 19-31 CALCIUM (test code = 2209) 9.1 MG/DL 8.5-10.5 PROTEIN, TOTAL (test code = 2229) 6.1 G/DL 6.1-8.3 ALBUMIN (test code = 2201) 3.9 G/DL 3.5-5.2 CALC GLOBULIN (test code = 2240) 2.2 G/DL 1.9-3.7 CALC A/G RATIO (test code = 2234) 1.8 RATIO 1.0-2.6 BILIRUBIN, TOTAL (test code = 2207) 0.5 MG/DL <=1.2 ALKALINE PHOSPHATASE (test code = 2204) 100 U/L 40-142 AST (test code = 2218) 34 U/L 9-40 ALT (test code = 2219) 33 U/L 5-40 LIPID [id number] 03:02:05* Test Item Value Reference Range Interpretation Comme nts CHOLESTEROL (test code = 2210) 119 MG/DL <200 TRIGLYCERIDES (test code = 2232) 83 MG/DL <150 HDL CHOLESTEROL (test code = 2220) 37 MG/DL >39 L CALC LDL CHOL (test code = 2237) 65 MG/DL <100 NOTE: CALCULATED LDL IS BASED ON KAYLYNN-CHAVEZ METHOD WHICHINCLUDES ADJUSTABLE TRIGLYCERIDE:VLDL CHOLESTEROL RATIO.THIS FACTOR VARIES BY MEASURED TRIGLYCERIDE AND NON-HDLCHOLESTEROL CONCENTRATIONS WITH INCREASED CALCULATED LDL SEENIN HIGHER TRIGLYCERIDE OR LOWER NON-HDL SPECIMENS. FOR MOREINFORMATION, SEE CLIENT ANNOUNCEMENT AT [email or web address] RISK RATIO LDL/HDL (test code = 2238) 1.76 RATIO <3.22 UNLESS OTHERW ISE INDICATED, ALL TESTING PERFORMED AT [facility] [address] [place] [id number] CHILD DEVELOPMENT PROFESSOR: COLLEEN GONZALES M.D. [place] NUMBER [id number] [facility] [place]. [id number] HEMOGLOBIN [id number] 00:00:00* Test Item Value Reference Range Interpretation Comme nts HEMOGLOBIN A1c (test code = 00894) 5.3 % Sae MatiasCOMPREHENSIVE METABOLIC [id number] 00:00:00* Test Item Value Reference Range Interpretation Comme nts GLUCOSE (test code = 2217) 108 MG/DL BUN (test code = 2208) 11 MG/DL CREATININE (test code = 2214) 0.84 MG/DL eGFR (2020 CKD-EPI) (test co de = 03921) 71 ML/MIN/1.73 CALC BUN/CREAT (test code = 2235) 13 RATIO SODIUM (test code = 2231) 138 MEQ/L POTASSIUM (test code = 2228) 3.7 MEQ/L CHLORIDE (test code = 2215) 101 MEQ/L CARBON DIOXIDE (test code = 2206) 25 MEQ/L CALCIUM (test code = 2209) 9.1 MG/DL PROTEIN, TOTAL (test code = 2229) 6.1 G/DL ALBUMIN (test code = 2201) 3.9 G/DL CALC GLOBULIN (test code = 2240) 2.2 G/DL CALC A/G RATIO (test code = 2234) 1.8 RATIO BILIRUBIN, TOTAL (test code = 2207) 0.5 MG/DL ALKALINE PHOSPHATASE (test code = 2204) 100 U/L AST (test code = 2218) 34 U/L ALT (test code = 2219) 33 U/L Sae MatiasLIPID [id number] 00:00:00* Test Item Value Reference Range Interpretation Comme nts CHOLESTEROL (test code = 2210) 119 MG/DL TRIGLYCERIDES (test code = 2232) 83 MG/DL HDL CHOLESTEROL (test code = 2220) 37 MG/DL CALC LDL CHOL (test code = 2237) 65 MG/DL RISK RATIO LDL/HDL (test cod e = 2238) 1.76 RATIO Sae MatiasHEMOGLOBIN [id number] 00:00:00* Test Item Value Reference Range Interpretation Comme nts HEMOGLOBIN A1c (test code = 76555) 5.3 % Sae MatiasCOMPREHENSIVE METABOLIC [id number] 00:00:00* Test Item Value Reference Range Interpretation Comme nts GLUCOSE (test code = 2217) 108 MG/DL BUN (test code = 2208) 11 MG/DL CREATININE (test code = 2214) 0.84 MG/DL eGFR (2020 CKD-EPI) (test co de = 12407) 71 ML/MIN/1.73 CALC BUN/CREAT (test code = 2235) 13 RATIO SODIUM (test code = 2231) 138 MEQ/L POTASSIUM (test code = 2228) 3.7 MEQ/L CHLORIDE (test code = 2215) 101 MEQ/L CARBON DIOXIDE (test code = 2206) 25 MEQ/L CALCIUM (test code = 2209) 9.1 MG/DL PROTEIN, TOTAL (test code = 2229) 6.1 G/DL ALBUMIN (test code = 2201) 3.9 G/DL CALC GLOBULIN (test code = 2240) 2.2 G/DL CALC A/G RATIO (test code = 2234) 1.8 RATIO BILIRUBIN, TOTAL (test code = 2207) 0.5 MG/DL ALKALINE PHOSPHATASE (test code = 2204) 100 U/L AST (test code = 2218) 34 U/L ALT (test code = 2219) 33 U/L Sae MatiasLIPID [id number] 00:00:00* Test Item Value Reference Range Interpretation Comme nts CHOLESTEROL (test code = 2210) 119 MG/DL TRIGLYCERIDES (test code = 2232) 83 MG/DL HDL CHOLESTEROL (test code = 2220) 37 MG/DL CALC LDL CHOL (test code = 2237) 65 MG/DL RISK RATIO LDL/HDL (test cod e = 2238) 1.76 RATIO Sae Alexander AustinHEMOGLOBIN [id number] 00:00:00* Test Item Value Reference Range Interpretation Comme nts HEMOGLOBIN A1c (test code = 21184) 5.3 % Sae Alexander AustinCOMPREHENSIVE METABOLIC [id number] 00:00:00* Test Item Value Reference Range Interpretation Comme nts GLUCOSE (test code = 2217) 108 MG/DL BUN (test code = 2208) 11 MG/DL CREATININE (test code = 2214) 0.84 MG/DL eGFR (2020 CKD-EPI) (test co de = 81164) 71 ML/MIN/1.73 CALC BUN/CREAT (test code = 2235) 13 RATIO SODIUM (test code = 2231) 138 MEQ/L POTASSIUM (test code = 2228) 3.7 MEQ/L CHLORIDE (test code = 2215) 101 MEQ/L CARBON DIOXIDE (test code = 2206) 25 MEQ/L CALCIUM (test code = 2209) 9.1 MG/DL PROTEIN, TOTAL (test code = 2229) 6.1 G/DL ALBUMIN (test code = 2201) 3.9 G/DL CALC GLOBULIN (test code = 2240) 2.2 G/DL CALC A/G RATIO (test code = 2234) 1.8 RATIO BILIRUBIN, TOTAL (test code = 2207) 0.5 MG/DL ALKALINE PHOSPHATASE (test code = 2204) 100 U/L AST (test code = 2218) 34 U/L ALT (test code = 2219) 33 U/L Sae Alexander AustinLIPID [id number] 00:00:00* Test Item Value Reference Range Interpretation Comme nts CHOLESTEROL (test code = 2210) 119 MG/DL TRIGLYCERIDES (test code = 2232) 83 MG/DL HDL CHOLESTEROL (test code = 2220) 37 MG/DL CALC LDL CHOL (test code = 2237) 65 MG/DL RISK RATIO LDL/HDL (test cod e = 2238) 1.76 RATIO Sae MatiasHEMOGLOBIN [id number] 00:00:00* Test Item Value Reference Range Interpretation Comme nts HEMOGLOBIN A1c (test code = 29742) 5.3 % Sae Alexander AustinCOMPREHENSIVE METABOLIC [id number] 00:00:00* Test Item Value Reference Range Interpretation Comme nts GLUCOSE (test code = 2217) 108 MG/DL BUN (test code = 2208) 11 MG/DL CREATININE (test code = 2214) 0.84 MG/DL eGFR (2020 CKD-EPI) (test co de = 51709) 71 ML/MIN/1.73 CALC BUN/CREAT (test code = 2235) 13 RATIO SODIUM (test code = 2231) 138 MEQ/L POTASSIUM (test code = 2228) 3.7 MEQ/L CHLORIDE (test code = 2215) 101 MEQ/L CARBON DIOXIDE (test code = 2206) 25 MEQ/L CALCIUM (test code = 2209) 9.1 MG/DL PROTEIN, TOTAL (test code = 2229) 6.1 G/DL ALBUMIN (test code = 2201) 3.9 G/DL CALC GLOBULIN (test code = 2240) 2.2 G/DL CALC A/G RATIO (test code = 2234) 1.8 RATIO BILIRUBIN, TOTAL (test code = 2207) 0.5 MG/DL ALKALINE PHOSPHATASE (test code = 2204) 100 U/L AST (test code = 2218) 34 U/L ALT (test code = 2219) 33 U/L Sae MatiasLIPID [id number] 00:00:00* Test Item Value Reference Range Interpretation Comme nts CHOLESTEROL (test code = 2210) 119 MG/DL TRIGLYCERIDES (test code = 2232) 83 MG/DL HDL CHOLESTEROL (test code = 2220) 37 MG/DL CALC LDL CHOL (test code = 2237) 65 MG/DL RISK RATIO LDL/HDL (test cod e = 2238) 1.76 RATIO Sae MatiasHEMOGLOBIN [id number] 00:00:00* Test Item Value Reference Range Interpretation Comme nts HEMOGLOBIN A1c (test code = 81335) 5.3 % Sae MatiasCOMPREHENSIVE METABOLIC [id number] 00:00:00* Test Item Value Reference Range Interpretation Comme nts GLUCOSE (test code = 2217) 108 MG/DL BUN (test code = 2208) 11 MG/DL CREATININE (test code = 2214) 0.84 MG/DL eGFR (2020 CKD-EPI) (test co de = 98279) 71 ML/MIN/1.73 CALC BUN/CREAT (test code = 2235) 13 RATIO SODIUM (test code = 2231) 138 MEQ/L POTASSIUM (test code = 2228) 3.7 MEQ/L CHLORIDE (test code = 2215) 101 MEQ/L CARBON DIOXIDE (test code = 2206) 25 MEQ/L CALCIUM (test code = 2209) 9.1 MG/DL PROTEIN, TOTAL (test code = 2229) 6.1 G/DL ALBUMIN (test code = 2201) 3.9 G/DL CALC GLOBULIN (test code = 2240) 2.2 G/DL CALC A/G RATIO (test code = 2234) 1.8 RATIO BILIRUBIN, TOTAL (test code = 2207) 0.5 MG/DL ALKALINE PHOSPHATASE (test code = 2204) 100 U/L AST (test code = 2218) 34 U/L ALT (test code = 2219) 33 U/L Sae MatiasLIPID [id number] 00:00:00* Test Item Value Reference Range Interpretation Comme nts CHOLESTEROL (test code = 2210) 119 MG/DL TRIGLYCERIDES (test code = 2232) 83 MG/DL HDL CHOLESTEROL (test code = 2220) 37 MG/DL CALC LDL CHOL (test code = 2237) 65 MG/DL RISK RATIO LDL/HDL (test cod e = 2238) 1.76 RATIO Sae MatiasVITAMIN D, 25 [id number] 04:40:33* Test Item Value Reference Range Interpretation Comme [facility] VITAMIN D, 25 OH (test code = 4958) 29 NG/ML SEE BELOW L NOTE: 25-HYDR OXYVITAMIN D ASSAY INCLUDES 25-HYDROXYVITAMIN D2 AND D3. INTERPRETIVE RANGES PEDIATRIC (<17 YEARS) . . . . . . . . . . . NG/ML 20-100ADULT: INSUFFICIENT . . . . . . . . . . . . . . NG/ML <20 SUBOPTIMAL . . . . . . . . . . . . . . . NG/ML 20-29 OPTIMAL . . . . . . . . . . . . . . . . . NG/ML 30-100 VITAMIN [id number] 04:40:33* Test Item Value Reference Range Interpretation Comme [facility] VITAMIN B-12 (test code = 2840) 503 PG/ML 200-950 UNLESS OTHERWISE INDICATED, ALL TESTING PERFORMED AT [facility] [address] [place] [address] CHILD DEVELOPMENT PROFESSOR: COLLEEN GONZALES M.D. CLIA NUMBER [id number] [facility] [place] [place]. [id number] COMPREHENSIVE METABOLIC [id number] 04:33:50* Test Item Value Reference Range Interpretation Comme nts GLUCOSE (test code = 2217) 104 MG/DL 70-99 H BUN (test code = 2207) 13 MG/DL 8-23 CREATININE (test code = 2214) 0.89 MG/DL 0.60-1.30 eGFR (2020 CKD-EPI) (test co de = 35806) 66 ML/MIN/1.73 >60 CALC BUN/CREAT (test code = 2235) 15 RATIO 6-28 SODIUM (test code = 223) 141 MEQ/L 133-146 POTASSIUM (test code = 2228) 3.7 MEQ/L 3.5-5.4 CHLORIDE (test code = 2215) 104 MEQ/L 95-107 CARBON DIOXIDE (test code = 2206) 25 MEQ/L 19-31 CALCIUM (test code = 2209) 9.0 MG/DL 8.5-10.5 PROTEIN, TOTAL (test code = 2229) 6.3 G/DL 6.1-8.3 ALBUMIN (test code = 2201) 3.9 G/DL 3.5-5.2 CALC GLOBULIN (test code = 2240) 2.4 G/DL 1.9-3.7 CALC A/G RATIO (test code = 2234) 1.6 RATIO 1.0-2.6 BILIRUBIN, TOTAL (test code = 2207) 0.4 MG/DL <=1.2 ALKALINE PHOSPHATASE (test code = 2204) 137 U/L 40-142 AST (test code = 2218) 38 U/L 9-40 ALT (test code = 2219) 37 U/L 5-40 LIPID [id number] 04:33:50* Test Item Value Reference Range Interpretation Comme nts CHOLESTEROL (test code = 2210) 151 MG/DL <200 TRIGLYCERIDES (test code = 2232) 139 MG/DL <150 HDL CHOLESTEROL (test code = 2220) 34 MG/DL >39 L CALC LDL CHOL (test code = 2237) 93 MG/DL <100 NOTE: CALCULATED LDL IS BASED ON KAYLYNN-CHAVEZ METHOD WHICHINCLUDES ADJUSTABLE TRIGLYCERIDE:VLDL CHOLESTEROL RATIO.THIS FACTOR VARIES BY MEASURED TRIGLYCERIDE AND NON-HDLCHOLESTEROL CONCENTRATIONS WITH INCREASED CALCULATED LDL SEENIN HIGHER TRIGLYCERIDE OR LOWER NON-HDL SPECIMENS. FOR MOREINFORMATION, SEE CLIENT ANNOUNCEMENT AT [email or web address] RISK RATIO LDL/HDL (test code = 2238) 2.74 RATIO <3.22 HEMOGLOBIN [id number] 02:34:08* Test Item Value Reference Range Interpretation Comme [facility] HEMOGLOBIN A1c (test code = 91859) 5.7 % 4.2-5.6 H [employer] GUIDELINES FOR HGB A1C: PREDIABETES/INCREASED RISK . . . . . . . 5.7-6.4% DIAGNOSIS OF DIABETES . . . . . . . . . >=6.5% WITH CONFIRMATION OR APPROPRIATE SYMPTOMS NOTE: ASSAY MAY BE AFFECTED BY HEMOGLOBINOPATHIES (SICKLE CELL ANEMIA, S-C DISEASE, OTHERS) OR ARTIFICIALLY LOWERED BY DECREASED RED CELL SURVIVAL (HEMOLYTIC ANEMIAS, BLOOD LOSS, ETC.). CONSIDER ALTERNATE TESTING OR LABORATORY CONSULTATION. HEMOGLOBIN [id number] 00:00:00* Test Item Value Reference Range Interpretation Comme [facility] HEMOGLOBIN A1c (test code = 05480) 5.7 % Sae MatiasVITAMIN D, 25 [id number] 00:00:00* Test Item Value Reference Range Interpretation Comme [facility] VITAMIN D, 25 OH (test code = 4958) 29 NG/ML Sae MatiasVITAMIN [id number] 00:00:00* Test Item Value Reference Range Interpretation Comme [facility] VITAMIN B-12 (test code = 2840) 503 PG/ML Sae MatiasCOMPREHENSIVE METABOLIC [id number] 00:00:00* Test Item Value Reference Range Interpretation Comme [facility] GLUCOSE (test code = 2217) 104 MG/DL BUN (test code = 2208) 13 MG/DL CREATININE (test code = 2214) 0.89 MG/DL eGFR (2020 CKD-EPI) (test co de = 38114) 66 ML/MIN/1.73 CALC BUN/CREAT (test code = 2235) 15 RATIO SODIUM (test code = 2231) 141 MEQ/L POTASSIUM (test code = 2228) 3.7 MEQ/L CHLORIDE (test code = 2215) 104 MEQ/L CARBON DIOXIDE (test code = 2206) 25 MEQ/L CALCIUM (test code = 2209) 9.0 MG/DL PROTEIN, TOTAL (test code = 2229) 6.3 G/DL ALBUMIN (test code = 2201) 3.9 G/DL CALC GLOBULIN (test code = 2240) 2.4 G/DL CALC A/G RATIO (test code = 2234) 1.6 RATIO BILIRUBIN, TOTAL (test code = 2207) 0.4 MG/DL ALKALINE PHOSPHATASE (test code = 2204) 137 U/L AST (test code = 2218) 38 U/L ALT (test code = 2219) 37 U/L Sae MatiasLIPID [id number] 00:00:00* Test Item Value Reference Range Interpretation Comme nts CHOLESTEROL (test code = 2210) 151 MG/DL TRIGLYCERIDES (test code = 2232) 139 MG/DL HDL CHOLESTEROL (test code = 0) 34 MG/DL CALC LDL CHOL (test code = 2237) 93 MG/DL RISK RATIO LDL/HDL (test cod e = 2238) 2.74 RATIO Sae MatiasHEMOGLOBIN [id number] 00:00:00* Test Item Value Reference Range Interpretation Comme [facility] HEMOGLOBIN A1c (test code = 84870) 5.7 % Sae MatiasVITAMIN D, 25 [id number] 00:00:00* Test Item Value Reference Range Interpretation Comme [facility] VITAMIN D, 25 OH (test code = 4958) 29 NG/ML Sae MatiasVITAMIN [id number] 00:00:00* Test Item Value Reference Range Interpretation Comme [facility] VITAMIN B-12 (test code = 2840) 503 PG/ML Sae MatiasCOMPREHENSIVE METABOLIC [id number] 00:00:00* Test Item Value Reference Range Interpretation Comme nts GLUCOSE (test code = 7) 104 MG/DL BUN (test code = 8) 13 MG/DL CREATININE (test code = 2214) 0.89 MG/DL eGFR (2020 CKD-EPI) (test co de = 14961) 66 ML/MIN/1.73 CALC BUN/CREAT (test code = 2235) 15 RATIO SODIUM (test code = 2231) 141 MEQ/L POTASSIUM (test code = 2228) 3.7 MEQ/L CHLORIDE (test code = 2215) 104 MEQ/L CARBON DIOXIDE (test code = 2206) 25 MEQ/L CALCIUM (test code = 2209) 9.0 MG/DL PROTEIN, TOTAL (test code = 2229) 6.3 G/DL ALBUMIN (test code = 2201) 3.9 G/DL CALC GLOBULIN (test code = 2240) 2.4 G/DL CALC A/G RATIO (test code = 2234) 1.6 RATIO BILIRUBIN, TOTAL (test code = 2207) 0.4 MG/DL ALKALINE PHOSPHATASE (test code = 220) 137 U/L AST (test code = 221) 38 U/L ALT (test code = 2219) 37 U/L Sae MatiasLIPID [id number] 00:00:00* Test Item Value Reference Range Interpretation Comme nts CHOLESTEROL (test code = 2210) 151 MG/DL TRIGLYCERIDES (test code = 2232) 139 MG/DL HDL CHOLESTEROL (test code = 2220) 34 MG/DL CALC LDL CHOL (test code = 2237) 93 MG/DL RISK RATIO LDL/HDL (test cod e = 2238) 2.74 RATIO Sae MatiasHEMOGLOBIN [id number] 00:00:00* Test Item Value Reference Range Interpretation Comme [facility] HEMOGLOBIN A1c (test code = 67758) 5.7 % Sae MatiasVITAMIN D, 25 [id number] 00:00:00* Test Item Value Reference Range Interpretation Comme [facility] VITAMIN D, 25 OH (test code = 4958) 29 NG/ML Sae MatiasVITAMIN [id number] 00:00:00* Test Item Value Reference Range Interpretation Comme [facility] VITAMIN B-12 (test code = 2840) 503 PG/ML Sae MatiasCOMPREHENSIVE METABOLIC [id number] 00:00:00* Test Item Value Reference Range Interpretation Comme nts GLUCOSE (test code = 7) 104 MG/DL BUN (test code = 2208) 13 MG/DL CREATININE (test code = 2214) 0.89 MG/DL eGFR (2020 CKD-EPI) (test co de = 86832) 66 ML/MIN/1.73 CALC BUN/CREAT (test code = 2235) 15 RATIO SODIUM (test code = 2231) 141 MEQ/L POTASSIUM (test code = 2228) 3.7 MEQ/L CHLORIDE (test code = 2215) 104 MEQ/L CARBON DIOXIDE (test code = 2206) 25 MEQ/L CALCIUM (test code = 2209) 9.0 MG/DL PROTEIN, TOTAL (test code = 2229) 6.3 G/DL ALBUMIN (test code = 2201) 3.9 G/DL CALC GLOBULIN (test code = 2240) 2.4 G/DL CALC A/G RATIO (test code = 2234) 1.6 RATIO BILIRUBIN, TOTAL (test code = 2207) 0.4 MG/DL ALKALINE PHOSPHATASE (test code = 2204) 137 U/L AST (test code = 221) 38 U/L ALT (test code = 2219) 37 U/L Sae MatiasLIPID [id number] 00:00:00* Test Item Value Reference Range Interpretation Comme nts CHOLESTEROL (test code = 2210) 151 MG/DL TRIGLYCERIDES (test code = 2232) 139 MG/DL HDL CHOLESTEROL (test code = 2220) 34 MG/DL CALC LDL CHOL (test code = 2237) 93 MG/DL RISK RATIO LDL/HDL (test cod e = 2238) 2.74 RATIO Sae MatiasHEMOGLOBIN [id number] 00:00:00* Test Item Value Reference Range Interpretation Comme [facility] HEMOGLOBIN A1c (test code = 04841) 5.7 % Sae MatiasVITAMIN D, 25 [id number] 00:00:00* Test Item Value Reference Range Interpretation Comme [facility] VITAMIN D, 25 OH (test code = 4958) 29 NG/ML Sae MatiasVITAMIN [id number] 00:00:00* Test Item Value Reference Range Interpretation Comme [facility] VITAMIN B-12 (test code = 2840) 503 PG/ML Sae MatiasCOMPREHENSIVE METABOLIC [id number] 00:00:00* Test Item Value Reference Range Interpretation Comme [facility] GLUCOSE (test code = 2217) 104 MG/DL BUN (test code = 2208) 13 MG/DL CREATININE (test code = 2214) 0.89 MG/DL eGFR (2020 CKD-EPI) (test co de = 49226) 66 ML/MIN/1.73 CALC BUN/CREAT (test code = 2235) 15 RATIO SODIUM (test code = 2231) 141 MEQ/L POTASSIUM (test code = 2228) 3.7 MEQ/L CHLORIDE (test code = 2215) 104 MEQ/L CARBON DIOXIDE (test code = 2206) 25 MEQ/L CALCIUM (test code = 2209) 9.0 MG/DL PROTEIN, TOTAL (test code = 2229) 6.3 G/DL ALBUMIN (test code = 2201) 3.9 G/DL CALC GLOBULIN (test code = 2240) 2.4 G/DL CALC A/G RATIO (test code = 2234) 1.6 RATIO BILIRUBIN, TOTAL (test code = 2207) 0.4 MG/DL ALKALINE PHOSPHATASE (test code = 2204) 137 U/L AST (test code = 2218) 38 U/L ALT (test code = 2219) 37 U/L Sae MatiasLIPID [id number] 00:00:00* Test Item Value Reference Range Interpretation Comme nts CHOLESTEROL (test code = 2210) 151 MG/DL TRIGLYCERIDES (test code = 2232) 139 MG/DL HDL CHOLESTEROL (test code = 2220) 34 MG/DL CALC LDL CHOL (test code = 2237) 93 MG/DL RISK RATIO LDL/HDL (test cod e = 2238) 2.74 RATIO Sae MatiasHEMOGLOBIN [id number] 00:00:00* Test Item Value Reference Range Interpretation Comme [facility] HEMOGLOBIN A1c (test code = 04934) 5.7 % Sae MatiasVITAMIN D, 25 [id number] 00:00:00* Test Item Value Reference Range Interpretation Comme [facility] VITAMIN D, 25 OH (test code = 4958) 29 NG/ML Sae MatiasVITAMIN [id number] 00:00:00* Test Item Value Reference Range Interpretation Comme [facility] VITAMIN B-12 (test code = 2840) 503 PG/ML Sae MatiasCOMPREHENSIVE METABOLIC [id number] 00:00:00* Test Item Value Reference Range Interpretation Comme nts GLUCOSE (test code = 2217) 104 MG/DL BUN (test code = 2208) 13 MG/DL CREATININE (test code = 2214) 0.89 MG/DL eGFR (2020 CKD-EPI) (test co de = 34096) 66 ML/MIN/1.73 CALC BUN/CREAT (test code = 2235) 15 RATIO SODIUM (test code = 2231) 141 MEQ/L POTASSIUM (test code = 2228) 3.7 MEQ/L CHLORIDE (test code = 2215) 104 MEQ/L CARBON DIOXIDE (test code = 2206) 25 MEQ/L CALCIUM (test code = 2209) 9.0 MG/DL PROTEIN, TOTAL (test code = 2229) 6.3 G/DL ALBUMIN (test code = 2201) 3.9 G/DL CALC GLOBULIN (test code = 2240) 2.4 G/DL CALC A/G RATIO (test code = 2234) 1.6 RATIO BILIRUBIN, TOTAL (test code = 2207) 0.4 MG/DL ALKALINE PHOSPHATASE (test code = 2204) 137 U/L AST (test code = 2218) 38 U/L ALT (test code = 2219) 37 U/L Sae MatiasLIPID [id number] 00:00:00* Test Item Value Reference Range Interpretation Comme nts CHOLESTEROL (test code = 2210) 151 MG/DL TRIGLYCERIDES (test code = 2232) 139 MG/DL HDL CHOLESTEROL (test code = 2220) 34 MG/DL CALC LDL CHOL (test code = 2237) 93 MG/DL RISK RATIO LDL/HDL (test cod e = 2238) 2.74 RATIO Sae MatiasHEMOGLOBIN [id number] 00:00:00* Test Item Value Reference Range Interpretation Comme [facility] HEMOGLOBIN A1c (test code = 54489) 5.7 % Sae MatiasVITAMIN D, 25 [id number] 00:00:00* Test Item Value Reference Range Interpretation Comme [facility] VITAMIN D, 25 OH (test code = 4958) 29 NG/ML Sae MatiasVITAMIN [id number] 00:00:00* Test Item Value Reference Range Interpretation Comme [facility] VITAMIN B-12 (test code = 2840) 503 PG/ML Sae Alexander FlorencioCOMPREHENSIVE METABOLIC [id number] 00:00:00* Test Item Value Reference Range Interpretation Comme nts GLUCOSE (test code = 2217) 104 MG/DL BUN (test code = 2208) 13 MG/DL CREATININE (test code = 2214) 0.89 MG/DL eGFR (2020 CKD-EPI) (test co de = 05926) 66 ML/MIN/1.73 CALC BUN/CREAT (test code = 2235) 15 RATIO SODIUM (test code = 2231) 141 MEQ/L POTASSIUM (test code = 2228) 3.7 MEQ/L CHLORIDE (test code = 2215) 104 MEQ/L CARBON DIOXIDE (test code = 2206) 25 MEQ/L CALCIUM (test code = 2209) 9.0 MG/DL PROTEIN, TOTAL (test code = 2229) 6.3 G/DL ALBUMIN (test code = 2201) 3.9 G/DL CALC GLOBULIN (test code = 2240) 2.4 G/DL CALC A/G RATIO (test code = 2234) 1.6 RATIO BILIRUBIN, TOTAL (test code = 2207) 0.4 MG/DL ALKALINE PHOSPHATASE (test code = 2204) 137 U/L AST (test code = 2218) 38 U/L ALT (test code = 2219) 37 U/L Sae MatiasLIPID [id number] 00:00:00* Test Item Value Reference Range Interpretation Comme nts CHOLESTEROL (test code = 2210) 151 MG/DL TRIGLYCERIDES (test code = 2232) 139 MG/DL HDL CHOLESTEROL (test code = 2220) 34 MG/DL CALC LDL CHOL (test code = 2237) 93 MG/DL RISK RATIO LDL/HDL (test cod e = 2238) 2.74 RATIO Sae MatiasHEMOGLOBIN [id number] 00:00:00* Test Item Value Reference Range Interpretation Comme [facility] HEMOGLOBIN A1c (test code = 44237) 5.7 % Sae MatiasVITAMIN D, 25 [id number] 00:00:00* Test Item Value Reference Range Interpretation Comme [facility] VITAMIN D, 25 OH (test code = 4958) 29 NG/ML Sae MatiasVITAMIN [id number] 00:00:00* Test Item Value Reference Range Interpretation Comme [facility] VITAMIN B-12 (test code = 2840) 503 PG/ML Sae MatiasCOMPREHENSIVE METABOLIC [id number] 00:00:00* Test Item Value Reference Range Interpretation Comme nts GLUCOSE (test code = 2217) 104 MG/DL BUN (test code = 2208) 13 MG/DL CREATININE (test code = 2214) 0.89 MG/DL eGFR (2020 CKD-EPI) (test co de = 21629) 66 ML/MIN/1.73 CALC BUN/CREAT (test code = 2235) 15 RATIO SODIUM (test code = 2231) 141 MEQ/L POTASSIUM (test code = 2228) 3.7 MEQ/L CHLORIDE (test code = 2215) 104 MEQ/L CARBON DIOXIDE (test code = 2206) 25 MEQ/L CALCIUM (test code = 2209) 9.0 MG/DL PROTEIN, TOTAL (test code = 2229) 6.3 G/DL ALBUMIN (test code = 2201) 3.9 G/DL CALC GLOBULIN (test code = 2240) 2.4 G/DL CALC A/G RATIO (test code = 2234) 1.6 RATIO BILIRUBIN, TOTAL (test code = 2207) 0.4 MG/DL ALKALINE PHOSPHATASE (test code = 2204) 137 U/L AST (test code = 2218) 38 U/L ALT (test code = 2219) 37 U/L Sae MatiasLIPID [id number] 00:00:00* Test Item Value Reference Range Interpretation Comme nts CHOLESTEROL (test code = 2210) 151 MG/DL TRIGLYCERIDES (test code = 2232) 139 MG/DL HDL CHOLESTEROL (test code = 2220) 34 MG/DL CALC LDL CHOL (test code = 2237) 93 MG/DL RISK RATIO LDL/HDL (test cod e = 2238) 2.74 RATIO Sae MatiasCOMPREHENSIVE METABOLIC [id number] 07:02:01* Test Item Value Reference Range Interpretation Comme nts GLUCOSE (test code = 2217) 108 MG/DL 70-99 H BUN (test code = 2208) 13 MG/DL 8-23 CREATININE (test code = 2214) 0.82 MG/DL 0.60-1.30 eGFR (2020 CKD-EPI) (test co de = 47625) 74 ML/MIN/1.73 >60 CALC BUN/CREAT (test code = 2235) 16 RATIO 6-28 SODIUM (test code = 2231) 143 MEQ/L 133-146 POTASSIUM (test code = 2228) 4.1 MEQ/L 3.5-5.4 CHLORIDE (test code = 2215) 105 MEQ/L 95-107 CARBON DIOXIDE (test code = 2206) 27 MEQ/L 19-31 CALCIUM (test code = 2209) 9.2 MG/DL 8.5-10.5 PROTEIN, TOTAL (test code = 2229) 6.4 G/DL 6.1-8.3 ALBUMIN (test code = 2201) 3.8 G/DL 3.5-5.2 CALC GLOBULIN (test code = 2240) 2.6 G/DL 1.9-3.7 CALC A/G RATIO (test code = 2234) 1.5 RATIO 1.0-2.6 BILIRUBIN, TOTAL (test code = 2206) 0.3 MG/DL <=1.2 ALKALINE PHOSPHATASE (test code = 220) 108 U/L 40-142 AST (test code = 2218) 28 U/L 9-40 ALT (test code = 221) 35 U/L 5-40 LIPID [id number] 07:02:01* Test Item Value Reference Range Interpretation Comme nts CHOLESTEROL (test code = 2210) 148 MG/DL <200 TRIGLYCERIDES (test code = 2232) 120 MG/DL <150 HDL CHOLESTEROL (test code = 2220) 38 MG/DL >39 L CALC LDL CHOL (test code = 223) 88 MG/DL <100 NOTE: CALCULATED LDL IS BASED ON KAYLYNN-CHAVEZ METHOD WHICHINCLUDES ADJUSTABLE TRIGLYCERIDE:VLDL CHOLESTEROL RATIO.THIS FACTOR VARIES BY MEASURED TRIGLYCERIDE AND NON-HDLCHOLESTEROL CONCENTRATIONS WITH INCREASED CALCULATED LDL SEENIN HIGHER TRIGLYCERIDE OR LOWER NON-HDL SPECIMENS. FOR MOREINFORMATION, SEE CLIENT ANNOUNCEMENT AT [email or web address] RISK RATIO LDL/HDL (test code = 2238) 2.32 RATIO <3.22 UNLESS OTHERW ISE INDICATED, ALL TESTING PERFORMED AT [facility] [address] [facility] [place] [address] CHILD DEVELOPMENT PROFESSOR: COLLEEN GONZALES M.D. CLIA NUMBER [id number] [facility] [place]. [id number] COMPREHENSIVE METABOLIC PANEL [ADDED]2022-12-05 00:00:00* Test Item Value Reference Range Interpretation Comme nts GLUCOSE (test code = 2216) 108 MG/DL BUN (test code = 2207) 13 MG/DL CREATININE (test code = 2214) 0.82 MG/DL eGFR (2020 CKD-EPI) (test co de = 78978) 74 ML/MIN/1.73 CALC BUN/CREAT (test code = 2235) 16 RATIO SODIUM (test code = 2231) 143 MEQ/L POTASSIUM (test code = 2228) 4.1 MEQ/L CHLORIDE (test code = 2215) 105 MEQ/L CARBON DIOXIDE (test code = 2206) 27 MEQ/L CALCIUM (test code = 2209) 9.2 MG/DL PROTEIN, TOTAL (test code = 2229) 6.4 G/DL ALBUMIN (test code = 2201) 3.8 G/DL CALC GLOBULIN (test code = 2240) 2.6 G/DL CALC A/G RATIO (test code = 2234) 1.5 RATIO BILIRUBIN, TOTAL (test code = 2207) 0.3 MG/DL ALKALINE PHOSPHATASE (test code = 2204) 108 U/L AST (test code = 2218) 28 U/L ALT (test code = 2219) 35 U/L Sae MatiasLIPID PANEL [ADDED]2022-12-05 00:00:00* Test Item Value Reference Range Interpretation Comme nts CHOLESTEROL (test code = 2210) 148 MG/DL TRIGLYCERIDES (test code = 2232) 120 MG/DL HDL CHOLESTEROL (test code = 2220) 38 MG/DL CALC LDL CHOL (test code = 2237) 88 MG/DL RISK RATIO LDL/HDL (test cod e = 2238) 2.32 RATIO Sae MaitasCOMPREHENSIVE METABOLIC PANEL [ADDED]2022-12-05 00:00:00* Test Item Value Reference Range Interpretation Comme nts GLUCOSE (test code = 2217) 108 MG/DL BUN (test code = 2208) 13 MG/DL CREATININE (test code = 2214) 0.82 MG/DL eGFR (2020 CKD-EPI) (test co de = 33329) 74 ML/MIN/1.73 CALC BUN/CREAT (test code = 2235) 16 RATIO SODIUM (test code = 2231) 143 MEQ/L POTASSIUM (test code = 2228) 4.1 MEQ/L CHLORIDE (test code = 2215) 105 MEQ/L CARBON DIOXIDE (test code = 2206) 27 MEQ/L CALCIUM (test code = 2209) 9.2 MG/DL PROTEIN, TOTAL (test code = 2229) 6.4 G/DL ALBUMIN (test code = 2201) 3.8 G/DL CALC GLOBULIN (test code = 2240) 2.6 G/DL CALC A/G RATIO (test code = 2234) 1.5 RATIO BILIRUBIN, TOTAL (test code = 2207) 0.3 MG/DL ALKALINE PHOSPHATASE (test code = 2204) 108 U/L AST (test code = 2218) 28 U/L ALT (test code = 2219) 35 U/L Sae Alexander SundownLIPID PANEL [ADDED]2022-12-05 00:00:00* Test Item Value Reference Range Interpretation Comme nts CHOLESTEROL (test code = 2210) 148 MG/DL TRIGLYCERIDES (test code = 2232) 120 MG/DL HDL CHOLESTEROL (test code = 2220) 38 MG/DL CALC LDL CHOL (test code = 2237) 88 MG/DL RISK RATIO LDL/HDL (test cod e = 2238) 2.32 RATIO Sae Catherine FlorencioCOMPREHENSIVE METABOLIC PANEL [ADDED]2022-12-05 00:00:00* Test Item Value Reference Range Interpretation Comme nts GLUCOSE (test code = 2217) 108 MG/DL BUN (test code = 2208) 13 MG/DL CREATININE (test code = 2214) 0.82 MG/DL eGFR (2020 CKD-EPI) (test co de = 24955) 74 ML/MIN/1.73 CALC BUN/CREAT (test code = 2235) 16 RATIO SODIUM (test code = 2231) 143 MEQ/L POTASSIUM (test code = 2228) 4.1 MEQ/L CHLORIDE (test code = 2215) 105 MEQ/L CARBON DIOXIDE (test code = 2206) 27 MEQ/L CALCIUM (test code = 2209) 9.2 MG/DL PROTEIN, TOTAL (test code = 2229) 6.4 G/DL ALBUMIN (test code = 2201) 3.8 G/DL CALC GLOBULIN (test code = 2240) 2.6 G/DL CALC A/G RATIO (test code = 2234) 1.5 RATIO BILIRUBIN, TOTAL (test code = 2207) 0.3 MG/DL ALKALINE PHOSPHATASE (test code = 2204) 108 U/L AST (test code = 2218) 28 U/L ALT (test code = 2219) 35 U/L Sae Alexander AustinLIPID PANEL [ADDED]2022-12-05 00:00:00* Test Item Value Reference Range Interpretation Comme nts CHOLESTEROL (test code = 2210) 148 MG/DL TRIGLYCERIDES (test code = 2232) 120 MG/DL HDL CHOLESTEROL (test code = 2220) 38 MG/DL CALC LDL CHOL (test code = 2237) 88 MG/DL RISK RATIO LDL/HDL (test cod e = 2238) 2.32 RATIO Sae Catherine AustinCOMPREHENSIVE METABOLIC PANEL [ADDED]2022-12-05 00:00:00* Test Item Value Reference Range Interpretation Comme nts GLUCOSE (test code = 2217) 108 MG/DL BUN (test code = 2208) 13 MG/DL CREATININE (test code = 2214) 0.82 MG/DL eGFR (2020 CKD-EPI) (test co de = 78928) 74 ML/MIN/1.73 CALC BUN/CREAT (test code = 2235) 16 RATIO SODIUM (test code = 2231) 143 MEQ/L POTASSIUM (test code = 2228) 4.1 MEQ/L CHLORIDE (test code = 2215) 105 MEQ/L CARBON DIOXIDE (test code = 2206) 27 MEQ/L CALCIUM (test code = 2209) 9.2 MG/DL PROTEIN, TOTAL (test code = 2229) 6.4 G/DL ALBUMIN (test code = 2201) 3.8 G/DL CALC GLOBULIN (test code = 2240) 2.6 G/DL CALC A/G RATIO (test code = 2234) 1.5 RATIO BILIRUBIN, TOTAL (test code = 2207) 0.3 MG/DL ALKALINE PHOSPHATASE (test code = 2204) 108 U/L AST (test code = 2218) 28 U/L ALT (test code = 2219) 35 U/L Sae Alexander AustinLIPID PANEL [ADDED]2022-12-05 00:00:00* Test Item Value Reference Range Interpretation Comme nts CHOLESTEROL (test code = 2210) 148 MG/DL TRIGLYCERIDES (test code = 2232) 120 MG/DL HDL CHOLESTEROL (test code = 2220) 38 MG/DL CALC LDL CHOL (test code = 2237) 88 MG/DL RISK RATIO LDL/HDL (test cod e = 2238) 2.32 RATIO Sae F AustinCOMPREHENSIVE METABOLIC PANEL [ADDED]2022-12-05 00:00:00* Test Item Value Reference Range Interpretation Comme nts GLUCOSE (test code = 2217) 108 MG/DL BUN (test code = 2208) 13 MG/DL CREATININE (test code = 2214) 0.82 MG/DL eGFR (2020 CKD-EPI) (test co de = 90030) 74 ML/MIN/1.73 CALC BUN/CREAT (test code = 2235) 16 RATIO SODIUM (test code = 2231) 143 MEQ/L POTASSIUM (test code = 2228) 4.1 MEQ/L CHLORIDE (test code = 2215) 105 MEQ/L CARBON DIOXIDE (test code = 2206) 27 MEQ/L CALCIUM (test code = 2209) 9.2 MG/DL PROTEIN, TOTAL (test code = 2229) 6.4 G/DL ALBUMIN (test code = 2201) 3.8 G/DL CALC GLOBULIN (test code = 2240) 2.6 G/DL CALC A/G RATIO (test code = 2234) 1.5 RATIO BILIRUBIN, TOTAL (test code = 2207) 0.3 MG/DL ALKALINE PHOSPHATASE (test code = 2204) 108 U/L AST (test code = 2218) 28 U/L ALT (test code = 2219) 35 U/L Sae Alexander AustinLIPID PANEL [ADDED]2022-12-05 00:00:00* Test Item Value Reference Range Interpretation Comme nts CHOLESTEROL (test code = 2210) 148 MG/DL TRIGLYCERIDES (test code = 2232) 120 MG/DL HDL CHOLESTEROL (test code = 2220) 38 MG/DL CALC LDL CHOL (test code = 2237) 88 MG/DL RISK RATIO LDL/HDL (test cod e = 2238) 2.32 RATIO Sae Alexander AustinCOMPREHENSIVE METABOLIC PANEL [ADDED]2022-12-05 00:00:00* Test Item Value Reference Range Interpretation Comme nts GLUCOSE (test code = 2217) 108 MG/DL BUN (test code = 2208) 13 MG/DL CREATININE (test code = 2214) 0.82 MG/DL eGFR (2020 CKD-EPI) (test co de = 61093) 74 ML/MIN/1.73 CALC BUN/CREAT (test code = 2235) 16 RATIO SODIUM (test code = 2231) 143 MEQ/L POTASSIUM (test code = 2228) 4.1 MEQ/L CHLORIDE (test code = 2215) 105 MEQ/L CARBON DIOXIDE (test code = 2206) 27 MEQ/L CALCIUM (test code = 2209) 9.2 MG/DL PROTEIN, TOTAL (test code = 2229) 6.4 G/DL ALBUMIN (test code = 2201) 3.8 G/DL CALC GLOBULIN (test code = 2240) 2.6 G/DL CALC A/G RATIO (test code = 2234) 1.5 RATIO BILIRUBIN, TOTAL (test code = 2207) 0.3 MG/DL ALKALINE PHOSPHATASE (test code = 2204) 108 U/L AST (test code = 2218) 28 U/L ALT (test code = 2219) 35 U/L Sae MatiasLIPID PANEL [ADDED]2022-12-05 00:00:00* Test Item Value Reference Range Interpretation Comme nts CHOLESTEROL (test code = 2210) 148 MG/DL TRIGLYCERIDES (test code = 2232) 120 MG/DL HDL CHOLESTEROL (test code = 2220) 38 MG/DL CALC LDL CHOL (test code = 2237) 88 MG/DL RISK RATIO LDL/HDL (test cod e = 2238) 2.32 RATIO Sae MatiasCOMPREHENSIVE METABOLIC PANEL [ADDED]2022-12-05 00:00:00* Test Item Value Reference Range Interpretation Comme nts GLUCOSE (test code = 2217) 108 MG/DL BUN (test code = 2208) 13 MG/DL CREATININE (test code = 2214) 0.82 MG/DL eGFR (2020 CKD-EPI) (test co de = 28584) 74 ML/MIN/1.73 CALC BUN/CREAT (test code = 2235) 16 RATIO SODIUM (test code = 2231) 143 MEQ/L POTASSIUM (test code = 2228) 4.1 MEQ/L CHLORIDE (test code = 2215) 105 MEQ/L CARBON DIOXIDE (test code = 2206) 27 MEQ/L CALCIUM (test code = 2209) 9.2 MG/DL PROTEIN, TOTAL (test code = 2229) 6.4 G/DL ALBUMIN (test code = 2201) 3.8 G/DL CALC GLOBULIN (test code = 2240) 2.6 G/DL CALC A/G RATIO (test code = 2234) 1.5 RATIO BILIRUBIN, TOTAL (test code = 2207) 0.3 MG/DL ALKALINE PHOSPHATASE (test code = 2204) 108 U/L AST (test code = 2218) 28 U/L ALT (test code = 2219) 35 U/L Sae MatiasLIPID PANEL [ADDED]2022-12-05 00:00:00* Test Item Value Reference Range Interpretation Comme nts CHOLESTEROL (test code = 2210) 148 MG/DL TRIGLYCERIDES (test code = 2232) 120 MG/DL HDL CHOLESTEROL (test code = 2220) 38 MG/DL CALC LDL CHOL (test code = 2237) 88 MG/DL RISK RATIO LDL/HDL (test cod e = 2238) 2.32 RATIO Sae MatiasHEMOGLOBIN A1c [ADDED]2022-08-11 00:00:00* Test Item Value Reference Range Interpretation Comme nts HEMOGLOBIN A1c (test code = 91736) TEST NOT PERFORMED % Sae MatiasCOMPREHENSIVE METABOLIC PANEL [ADDED]2022-08-11 00:00:00* Test Item Value Reference Range Interpretation Comme nts GLUCOSE (test code = 2217) TEST NOT PERFORMED MG/DL BUN (test code = 2208) TEST NOT PERFORME D MG/DL CREATININE (test code = 2214) TEST NOT PERFORMED MG/DL eGFR (2020 CKD-EPI) (test code = 06775) TEST NOT PERFORMED ML/MIN/1.73 CALC BUN/CREAT (test code = 2235) TEST NOT PERFORMED RATIO SODIUM (test code = 2231) TEST NOT PERFORMED MEQ/L POTASSIUM (test code = 2228) TEST NOT PERFORMED MEQ/L CHLORIDE (test code = 2215) TEST NOT PERFORMED MEQ/L CARBON DIOXIDE (test code = 2206) TEST NOT PERFORMED MEQ/L CALCIUM (test code = 2209) TEST NOT PERFORMED MG/DL PROTEIN, TOTAL (test code = 2229) TEST NOT PERFORMED G/DL ALBUMIN (test code = 2201) TEST NOT PERFORMED G/DL CALC GLOBULIN (test code = 2240) TEST NOT PERFORMED G/DL CALC A/G RATIO (test code = 2234) TEST NOT PERFORMED RATIO BILIRUBIN, TOTAL (test code = 2207) TEST NOT PERFORMED MG/DL ALKALINE PHOSPHATASE (test code = 2204) TEST NOT PERFORMED U/L AST (test code = 2218) TEST NOT PERFORME D U/L ALT (test code = 2219) TEST NOT PERFORME D U/L Sae F AustinLIPID PANEL [ADDED]2022-08-11 00:00:00* Test Item Value Reference Range Interpretation Comme nts CHOLESTEROL (test code = 2210) TEST NOT PERFORMED MG/DL TRIGLYCERIDES (test code = 2232) TEST NOT PERFORMED MG/DL HDL CHOLESTEROL (test code = 2220) TEST NOT PERFORMED MG/DL CALC LDL CHOL (test code = 2237) TEST NOT PERFORMED MG/DL RISK RATIO LDL/HDL (test code = 2238) TEST NOT PERFORMED RATIO Sae F AustinHEMOGLOBIN A1c [ADDED]2022-08-11 00:00:00* Test Item Value Reference Range Interpretation Comme nts HEMOGLOBIN A1c (test code = 70630) TEST NOT PERFORMED % Sae F FlorencioCOMPREHENSIVE METABOLIC PANEL [ADDED]2022-08-11 00:00:00* Test Item Value Reference Range Interpretation Comme nts GLUCOSE (test code = 2217) TEST NOT PERFORMED MG/DL BUN (test code = 2208) TEST NOT PERFORME D MG/DL CREATININE (test code = 2214) TEST NOT PERFORMED MG/DL eGFR (2020 CKD-EPI) (test code = 47882) TEST NOT PERFORMED ML/MIN/1.73 CALC BUN/CREAT (test code = 2235) TEST NOT PERFORMED RATIO SODIUM (test code = 2231) TEST NOT PERFORMED MEQ/L POTASSIUM (test code = 2228) TEST NOT PERFORMED MEQ/L CHLORIDE (test code = 2215) TEST NOT PERFORMED MEQ/L CARBON DIOXIDE (test code = 2206) TEST NOT PERFORMED MEQ/L CALCIUM (test code = 2209) TEST NOT PERFORMED MG/DL PROTEIN, TOTAL (test code = 2229) TEST NOT PERFORMED G/DL ALBUMIN (test code = 2201) TEST NOT PERFORMED G/DL CALC GLOBULIN (test code = 2240) TEST NOT PERFORMED G/DL CALC A/G RATIO (test code = 2234) TEST NOT PERFORMED RATIO BILIRUBIN, TOTAL (test code = 2207) TEST NOT PERFORMED MG/DL ALKALINE PHOSPHATASE (test code = 2204) TEST NOT PERFORMED U/L AST (test code = 2218) TEST NOT PERFORME D U/L ALT (test code = 2219) TEST NOT PERFORME D U/L Sae F AustinLIPID PANEL [ADDED]2022-08-11 00:00:00* Test Item Value Reference Range Interpretation Comme nts CHOLESTEROL (test code = 2210) TEST NOT PERFORMED MG/DL TRIGLYCERIDES (test code = 2232) TEST NOT PERFORMED MG/DL HDL CHOLESTEROL (test code = 2220) TEST NOT PERFORMED MG/DL CALC LDL CHOL (test code = 2237) TEST NOT PERFORMED MG/DL RISK RATIO LDL/HDL (test code = 2238) TEST NOT PERFORMED RATIO Sae MatiasHEMOGLOBIN A1c [ADDED]2022-08-11 00:00:00* Test Item Value Reference Range Interpretation Comme nts HEMOGLOBIN A1c (test code = 28116) TEST NOT PERFORMED % Sae Catherine FlorencioCOMPREHENSIVE METABOLIC PANEL [ADDED]2022-08-11 00:00:00* Test Item Value Reference Range Interpretation Comme nts GLUCOSE (test code = 2217) TEST NOT PERFORMED MG/DL BUN (test code = 2208) TEST NOT PERFORME D MG/DL CREATININE (test code = 2214) TEST NOT PERFORMED MG/DL eGFR (2020 CKD-EPI) (test code = 06466) TEST NOT PERFORMED ML/MIN/1.73 CALC BUN/CREAT (test code = 2235) TEST NOT PERFORMED RATIO SODIUM (test code = 2231) TEST NOT PERFORMED MEQ/L POTASSIUM (test code = 2228) TEST NOT PERFORMED MEQ/L CHLORIDE (test code = 2215) TEST NOT PERFORMED MEQ/L CARBON DIOXIDE (test code = 2206) TEST NOT PERFORMED MEQ/L CALCIUM (test code = 2209) TEST NOT PERFORMED MG/DL PROTEIN, TOTAL (test code = 2229) TEST NOT PERFORMED G/DL ALBUMIN (test code = 2201) TEST NOT PERFORMED G/DL CALC GLOBULIN (test code = 2240) TEST NOT PERFORMED G/DL CALC A/G RATIO (test code = 2234) TEST NOT PERFORMED RATIO BILIRUBIN, TOTAL (test code = 2207) TEST NOT PERFORMED MG/DL ALKALINE PHOSPHATASE (test code = 2204) TEST NOT PERFORMED U/L AST (test code = 2218) TEST NOT PERFORME D U/L ALT (test code = 2219) TEST NOT PERFORME D U/L Sae Catherine MatiasLIPID PANEL [ADDED]2022-08-11 00:00:00* Test Item Value Reference Range Interpretation Comme nts CHOLESTEROL (test code = 2210) TEST NOT PERFORMED MG/DL TRIGLYCERIDES (test code = 2232) TEST NOT PERFORMED MG/DL HDL CHOLESTEROL (test code = 2220) TEST NOT PERFORMED MG/DL CALC LDL CHOL (test code = 2237) TEST NOT PERFORMED MG/DL RISK RATIO LDL/HDL (test code = 2238) TEST NOT PERFORMED RATIO Sae MatiasHEMOGLOBIN A1c [ADDED]2022-08-11 00:00:00* Test Item Value Reference Range Interpretation Comme nts HEMOGLOBIN A1c (test code = 70355) TEST NOT PERFORMED % Sae MatiasCOMPREHENSIVE METABOLIC PANEL [ADDED]2022-08-11 00:00:00* Test Item Value Reference Range Interpretation Comme nts GLUCOSE (test code = 2217) TEST NOT PERFORMED MG/DL BUN (test code = 2208) TEST NOT PERFORME D MG/DL CREATININE (test code = 2214) TEST NOT PERFORMED MG/DL eGFR (2020 CKD-EPI) (test code = 01151) TEST NOT PERFORMED ML/MIN/1.73 CALC BUN/CREAT (test code = 2235) TEST NOT PERFORMED RATIO SODIUM (test code = 2231) TEST NOT PERFORMED MEQ/L POTASSIUM (test code = 2228) TEST NOT PERFORMED MEQ/L CHLORIDE (test code = 2215) TEST NOT PERFORMED MEQ/L CARBON DIOXIDE (test code = 2206) TEST NOT PERFORMED MEQ/L CALCIUM (test code = 2209) TEST NOT PERFORMED MG/DL PROTEIN, TOTAL (test code = 2229) TEST NOT PERFORMED G/DL ALBUMIN (test code = 2201) TEST NOT PERFORMED G/DL CALC GLOBULIN (test code = 2240) TEST NOT PERFORMED G/DL CALC A/G RATIO (test code = 2234) TEST NOT PERFORMED RATIO BILIRUBIN, TOTAL (test code = 2207) TEST NOT PERFORMED MG/DL ALKALINE PHOSPHATASE (test code = 2204) TEST NOT PERFORMED U/L AST (test code = 2218) TEST NOT PERFORME D U/L ALT (test code = 2219) TEST NOT PERFORME D U/L Sae MatiasLIPID PANEL [ADDED]2022-08-11 00:00:00* Test Item Value Reference Range Interpretation Comme nts CHOLESTEROL (test code = 2210) TEST NOT PERFORMED MG/DL TRIGLYCERIDES (test code = 2232) TEST NOT PERFORMED MG/DL HDL CHOLESTEROL (test code = 2220) TEST NOT PERFORMED MG/DL CALC LDL CHOL (test code = 2237) TEST NOT PERFORMED MG/DL RISK RATIO LDL/HDL (test code = 2238) TEST NOT PERFORMED RATIO Sae F AustinHEMOGLOBIN A1c [ADDED]2022-08-11 00:00:00* Test Item Value Reference Range Interpretation Comme nts HEMOGLOBIN A1c (test code = 10230) TEST NOT PERFORMED % Sae F FlorencioCOMPREHENSIVE METABOLIC PANEL [ADDED]2022-08-11 00:00:00* Test Item Value Reference Range Interpretation Comme nts GLUCOSE (test code = 2217) TEST NOT PERFORMED MG/DL BUN (test code = 2208) TEST NOT PERFORME D MG/DL CREATININE (test code = 2214) TEST NOT PERFORMED MG/DL eGFR (2020 CKD-EPI) (test code = 34220) TEST NOT PERFORMED ML/MIN/1.73 CALC BUN/CREAT (test code = 2235) TEST NOT PERFORMED RATIO SODIUM (test code = 2231) TEST NOT PERFORMED MEQ/L POTASSIUM (test code = 2228) TEST NOT PERFORMED MEQ/L CHLORIDE (test code = 2215) TEST NOT PERFORMED MEQ/L CARBON DIOXIDE (test code = 2206) TEST NOT PERFORMED MEQ/L CALCIUM (test code = 2209) TEST NOT PERFORMED MG/DL PROTEIN, TOTAL (test code = 2229) TEST NOT PERFORMED G/DL ALBUMIN (test code = 2201) TEST NOT PERFORMED G/DL CALC GLOBULIN (test code = 2240) TEST NOT PERFORMED G/DL CALC A/G RATIO (test code = 2234) TEST NOT PERFORMED RATIO BILIRUBIN, TOTAL (test code = 2207) TEST NOT PERFORMED MG/DL ALKALINE PHOSPHATASE (test code = 2204) TEST NOT PERFORMED U/L AST (test code = 2218) TEST NOT PERFORME D U/L ALT (test code = 2219) TEST NOT PERFORME D U/L Sae F AustinLIPID PANEL [ADDED]2022-08-11 00:00:00* Test Item Value Reference Range Interpretation Comme nts CHOLESTEROL (test code = 2210) TEST NOT PERFORMED MG/DL TRIGLYCERIDES (test code = 2232) TEST NOT PERFORMED MG/DL HDL CHOLESTEROL (test code = 2220) TEST NOT PERFORMED MG/DL CALC LDL CHOL (test code = 2237) TEST NOT PERFORMED MG/DL RISK RATIO LDL/HDL (test code = 2238) TEST NOT PERFORMED RATIO Sae F AustinHEMOGLOBIN A1c [ADDED]2022-08-11 00:00:00* Test Item Value Reference Range Interpretation Comme nts HEMOGLOBIN A1c (test code = 02146) TEST NOT PERFORMED % Ase F AustinCOMPREHENSIVE METABOLIC PANEL [ADDED]2022-08-11 00:00:00* Test Item Value Reference Range Interpretation Comme nts GLUCOSE (test code = 2217) TEST NOT PERFORMED MG/DL BUN (test code = 2208) TEST NOT PERFORME D MG/DL CREATININE (test code = 2214) TEST NOT PERFORMED MG/DL eGFR (2020 CKD-EPI) (test code = 71150) TEST NOT PERFORMED ML/MIN/1.73 CALC BUN/CREAT (test code = 2235) TEST NOT PERFORMED RATIO SODIUM (test code = 2231) TEST NOT PERFORMED MEQ/L POTASSIUM (test code = 2228) TEST NOT PERFORMED MEQ/L CHLORIDE (test code = 2215) TEST NOT PERFORMED MEQ/L CARBON DIOXIDE (test code = 2206) TEST NOT PERFORMED MEQ/L CALCIUM (test code = 2209) TEST NOT PERFORMED MG/DL PROTEIN, TOTAL (test code = 2229) TEST NOT PERFORMED G/DL ALBUMIN (test code = 2201) TEST NOT PERFORMED G/DL CALC GLOBULIN (test code = 2240) TEST NOT PERFORMED G/DL CALC A/G RATIO (test code = 2234) TEST NOT PERFORMED RATIO BILIRUBIN, TOTAL (test code = 2207) TEST NOT PERFORMED MG/DL ALKALINE PHOSPHATASE (test code = 2204) TEST NOT PERFORMED U/L AST (test code = 2218) TEST NOT PERFORME D U/L ALT (test code = 2219) TEST NOT PERFORME D U/L Sae F AustinLIPID PANEL [ADDED]2022-08-11 00:00:00* Test Item Value Reference Range Interpretation Comme nts CHOLESTEROL (test code = 2210) TEST NOT PERFORMED MG/DL TRIGLYCERIDES (test code = 2232) TEST NOT PERFORMED MG/DL HDL CHOLESTEROL (test code = 2220) TEST NOT PERFORMED MG/DL CALC LDL CHOL (test code = 2237) TEST NOT PERFORMED MG/DL RISK RATIO LDL/HDL (test code = 2238) TEST NOT PERFORMED RATIO Sae F AustinHEMOGLOBIN A1c [ADDED]2022-08-11 00:00:00* Test Item Value Reference Range Interpretation Comme nts HEMOGLOBIN A1c (test code = 46659) TEST NOT PERFORMED % Sae F AustinCOMPREHENSIVE METABOLIC PANEL [ADDED]2022-08-11 00:00:00* Test Item Value Reference Range Interpretation Comme nts GLUCOSE (test code = 2217) TEST NOT PERFORMED MG/DL BUN (test code = 2208) TEST NOT PERFORME D MG/DL CREATININE (test code = 2214) TEST NOT PERFORMED MG/DL eGFR (2020 CKD-EPI) (test code = 95210) TEST NOT PERFORMED ML/MIN/1.73 CALC BUN/CREAT (test code = 2235) TEST NOT PERFORMED RATIO SODIUM (test code = 2231) TEST NOT PERFORMED MEQ/L POTASSIUM (test code = 2228) TEST NOT PERFORMED MEQ/L CHLORIDE (test code = 2215) TEST NOT PERFORMED MEQ/L CARBON DIOXIDE (test code = 2206) TEST NOT PERFORMED MEQ/L CALCIUM (test code = 2209) TEST NOT PERFORMED MG/DL PROTEIN, TOTAL (test code = 2229) TEST NOT PERFORMED G/DL ALBUMIN (test code = 2201) TEST NOT PERFORMED G/DL CALC GLOBULIN (test code = 2240) TEST NOT PERFORMED G/DL CALC A/G RATIO (test code = 2234) TEST NOT PERFORMED RATIO BILIRUBIN, TOTAL (test code = 2207) TEST NOT PERFORMED MG/DL ALKALINE PHOSPHATASE (test code = 2204) TEST NOT PERFORMED U/L AST (test code = 2218) TEST NOT PERFORME D U/L ALT (test code = 2219) TEST NOT PERFORME D U/L Sae Alexander AustinLIPID PANEL [ADDED]2022-08-11 00:00:00* Test Item Value Reference Range Interpretation Comme nts CHOLESTEROL (test code = 2210) TEST NOT PERFORMED MG/DL TRIGLYCERIDES (test code = 2232) TEST NOT PERFORMED MG/DL HDL CHOLESTEROL (test code = 2220) TEST NOT PERFORMED MG/DL CALC LDL CHOL (test code = 2237) TEST NOT PERFORMED MG/DL RISK RATIO LDL/HDL (test code = 2238) TEST NOT PERFORMED RATIO Sae F AustinLIPID [id number] 00:00:00* Test Item Value Reference Range Interpretation Comme nts CHOLESTEROL (test code = 2210) 121 MG/DL TRIGLYCERIDES (test code = 2232) 78 MG/DL HDL CHOLESTEROL (test code = 2220) 40 MG/DL CALC LDL CHOL (test code = 2237) 65 MG/DL RISK RATIO LDL/HDL (test cod e = 2238) 1.63 RATIO Sae MatiasCOMPREHENSIVE METABOLIC [id number] 00:00:00* Test Item Value Reference Range Interpretation Comme nts GLUCOSE (test code = 2217) 102 MG/DL BUN (test code = 2208) 13 MG/DL CREATININE (test code = 2214) 0.86 MG/DL eGFR (2020 CKD-EPI) (test co de = [id number]) 70 ML/MIN/1.73 CALC BUN/CREAT (test code = 2235) 15 RATIO SODIUM (test code = 2231) 138 MEQ/L POTASSIUM (test code = 2228) 4.0 MEQ/L CHLORIDE (test code = 2215) 101 MEQ/L CARBON DIOXIDE (test code = 2206) 27 MEQ/L CALCIUM (test code = 2209) 8.7 MG/DL PROTEIN, TOTAL (test code = 2229) 5.9 G/DL ALBUMIN (test code = 2201) 3.7 G/DL CALC GLOBULIN (test code = 2240) 2.2 G/DL CALC A/G RATIO (test code = 2234) 1.7 RATIO BILIRUBIN, TOTAL (test code = 2207) 0.4 MG/DL ALKALINE PHOSPHATASE (test code = 2204) 92 U/L AST (test code = 2218) 21 U/L ALT (test code = 2219) 23 U/L Sae MatiasLIPID [id number] 00:00:00* Test Item Value Reference Range Interpretation Comme nts CHOLESTEROL (test code = 2210) 121 MG/DL TRIGLYCERIDES (test code = 2232) 78 MG/DL HDL CHOLESTEROL (test code = 2220) 40 MG/DL CALC LDL CHOL (test code = 2237) 65 MG/DL RISK RATIO LDL/HDL (test cod e = 2238) 1.63 RATIO Sae Alexander AustinCOMPREHENSIVE METABOLIC [id number] 00:00:00* Test Item Value Reference Range Interpretation Comme nts GLUCOSE (test code = 2217) 102 MG/DL BUN (test code = 2208) 13 MG/DL CREATININE (test code = 2214) 0.86 MG/DL eGFR (2020 CKD-EPI) (test co de = 60187) 70 ML/MIN/1.73 CALC BUN/CREAT (test code = 2235) 15 RATIO SODIUM (test code = 2231) 138 MEQ/L POTASSIUM (test code = 2228) 4.0 MEQ/L CHLORIDE (test code = 2215) 101 MEQ/L CARBON DIOXIDE (test code = 2206) 27 MEQ/L CALCIUM (test code = 2209) 8.7 MG/DL PROTEIN, TOTAL (test code = 2229) 5.9 G/DL ALBUMIN (test code = 2201) 3.7 G/DL CALC GLOBULIN (test code = 2240) 2.2 G/DL CALC A/G RATIO (test code = 2234) 1.7 RATIO BILIRUBIN, TOTAL (test code = 2207) 0.4 MG/DL ALKALINE PHOSPHATASE (test code = 2204) 92 U/L AST (test code = 2218) 21 U/L ALT (test code = 2219) 23 U/L Sae Alexander SundownLIPID [id number] 00:00:00* Test Item Value Reference Range Interpretation Comme nts CHOLESTEROL (test code = 2210) 121 MG/DL TRIGLYCERIDES (test code = 2232) 78 MG/DL HDL CHOLESTEROL (test code = 2220) 40 MG/DL CALC LDL CHOL (test code = 2237) 65 MG/DL RISK RATIO LDL/HDL (test cod e = 2238) 1.63 RATIO Sae Alexander FlorencioCOMPREHENSIVE METABOLIC [id number] 00:00:00* Test Item Value Reference Range Interpretation Comme nts GLUCOSE (test code = 2217) 102 MG/DL BUN (test code = 2208) 13 MG/DL CREATININE (test code = 2214) 0.86 MG/DL eGFR (2020 CKD-EPI) (test co de = [id number]) 70 ML/MIN/1.73 CALC BUN/CREAT (test code = 2235) 15 RATIO SODIUM (test code = 2231) 138 MEQ/L POTASSIUM (test code = 2228) 4.0 MEQ/L CHLORIDE (test code = 2215) 101 MEQ/L CARBON DIOXIDE (test code = 2206) 27 MEQ/L CALCIUM (test code = 2209) 8.7 MG/DL PROTEIN, TOTAL (test code = 2229) 5.9 G/DL ALBUMIN (test code = 2201) 3.7 G/DL CALC GLOBULIN (test code = 2240) 2.2 G/DL CALC A/G RATIO (test code = 2234) 1.7 RATIO BILIRUBIN, TOTAL (test code = 2207) 0.4 MG/DL ALKALINE PHOSPHATASE (test code = 2204) 92 U/L AST (test code = 2218) 21 U/L ALT (test code = 2219) 23 U/L Sae Alexander AustinLIPID [id number] 00:00:00* Test Item Value Reference Range Interpretation Comme nts CHOLESTEROL (test code = 2210) 121 MG/DL TRIGLYCERIDES (test code = 2232) 78 MG/DL HDL CHOLESTEROL (test code = 2220) 40 MG/DL CALC LDL CHOL (test code = 2237) 65 MG/DL RISK RATIO LDL/HDL (test cod e = 2238) 1.63 RATIO Sae MatiasCOMPREHENSIVE METABOLIC [id number] 00:00:00* Test Item Value Reference Range Interpretation Comme nts GLUCOSE (test code = 2217) 102 MG/DL BUN (test code = 2208) 13 MG/DL CREATININE (test code = 2214) 0.86 MG/DL eGFR (2020 CKD-EPI) (test co de = 55149) 70 ML/MIN/1.73 CALC BUN/CREAT (test code = 2235) 15 RATIO SODIUM (test code = 2231) 138 MEQ/L POTASSIUM (test code = 2228) 4.0 MEQ/L CHLORIDE (test code = 2215) 101 MEQ/L CARBON DIOXIDE (test code = 2206) 27 MEQ/L CALCIUM (test code = 2209) 8.7 MG/DL PROTEIN, TOTAL (test code = 2229) 5.9 G/DL ALBUMIN (test code = 2201) 3.7 G/DL CALC GLOBULIN (test code = 2240) 2.2 G/DL CALC A/G RATIO (test code = 2234) 1.7 RATIO BILIRUBIN, TOTAL (test code = 2207) 0.4 MG/DL ALKALINE PHOSPHATASE (test code = 2204) 92 U/L AST (test code = 2218) 21 U/L ALT (test code = 2219) 23 U/L Sae Alexander AustinLIPID [id number] 00:00:00* Test Item Value Reference Range Interpretation Comme nts CHOLESTEROL (test code = 2210) 121 MG/DL TRIGLYCERIDES (test code = 2232) 78 MG/DL HDL CHOLESTEROL (test code = 2220) 40 MG/DL CALC LDL CHOL (test code = 2237) 65 MG/DL RISK RATIO LDL/HDL (test cod e = 2238) 1.63 RATIO Sae MatiasCOMPREHENSIVE METABOLIC [id number] 00:00:00* Test Item Value Reference Range Interpretation Comme nts GLUCOSE (test code = 2217) 102 MG/DL BUN (test code = 2208) 13 MG/DL CREATININE (test code = 2214) 0.86 MG/DL eGFR (2020 CKD-EPI) (test co de = 43593) 70 ML/MIN/1.73 CALC BUN/CREAT (test code = 2235) 15 RATIO SODIUM (test code = 2231) 138 MEQ/L POTASSIUM (test code = 2228) 4.0 MEQ/L CHLORIDE (test code = 2215) 101 MEQ/L CARBON DIOXIDE (test code = 2206) 27 MEQ/L CALCIUM (test code = 2209) 8.7 MG/DL PROTEIN, TOTAL (test code = 2229) 5.9 G/DL ALBUMIN (test code = 2201) 3.7 G/DL CALC GLOBULIN (test code = 2240) 2.2 G/DL CALC A/G RATIO (test code = 2234) 1.7 RATIO BILIRUBIN, TOTAL (test code = 2207) 0.4 MG/DL ALKALINE PHOSPHATASE (test code = 2204) 92 U/L AST (test code = 2218) 21 U/L ALT (test code = 2219) 23 U/L Sae Alexander AustinLIPID [id number] 00:00:00* Test Item Value Reference Range Interpretation Comme nts CHOLESTEROL (test code = 2210) 121 MG/DL TRIGLYCERIDES (test code = 2232) 78 MG/DL HDL CHOLESTEROL (test code = 2220) 40 MG/DL CALC LDL CHOL (test code = 2237) 65 MG/DL RISK RATIO LDL/HDL (test cod e = 2238) 1.63 RATIO Sae Alexander AustinCOMPREHENSIVE METABOLIC [id number] 00:00:00* Test Item Value Reference Range Interpretation Comme nts GLUCOSE (test code = 2217) 102 MG/DL BUN (test code = 2208) 13 MG/DL CREATININE (test code = 2214) 0.86 MG/DL eGFR (2020 CKD-EPI) (test co de = 33441) 70 ML/MIN/1.73 CALC BUN/CREAT (test code = 2235) 15 RATIO SODIUM (test code = 2231) 138 MEQ/L POTASSIUM (test code = 2228) 4.0 MEQ/L CHLORIDE (test code = 2215) 101 MEQ/L CARBON DIOXIDE (test code = 2206) 27 MEQ/L CALCIUM (test code = 2209) 8.7 MG/DL PROTEIN, TOTAL (test code = 2229) 5.9 G/DL ALBUMIN (test code = 2201) 3.7 G/DL CALC GLOBULIN (test code = 2240) 2.2 G/DL CALC A/G RATIO (test code = 2234) 1.7 RATIO BILIRUBIN, TOTAL (test code = 2207) 0.4 MG/DL ALKALINE PHOSPHATASE (test code = 2204) 92 U/L AST (test code = 2218) 21 U/L ALT (test code = 2219) 23 U/L Sae Alexander SundownLIPID [id number] 00:00:00* Test Item Value Reference Range Interpretation Comme nts CHOLESTEROL (test code = 2210) 121 MG/DL TRIGLYCERIDES (test code = 2232) 78 MG/DL HDL CHOLESTEROL (test code = 2220) 40 MG/DL CALC LDL CHOL (test code = 2237) 65 MG/DL RISK RATIO LDL/HDL (test cod e = 2238) 1.63 RATIO Sae Alexander FlorencioCOMPREHENSIVE METABOLIC [id number] 00:00:00* Test Item Value Reference Range Interpretation Comme nts GLUCOSE (test code = 2217) 102 MG/DL BUN (test code = 2208) 13 MG/DL CREATININE (test code = 2214) 0.86 MG/DL eGFR (2020 CKD-EPI) (test co de = 98442) 70 ML/MIN/1.73 CALC BUN/CREAT (test code = 2235) 15 RATIO SODIUM (test code = 2231) 138 MEQ/L POTASSIUM (test code = 2228) 4.0 MEQ/L CHLORIDE (test code = 2215) 101 MEQ/L CARBON DIOXIDE (test code = 2206) 27 MEQ/L CALCIUM (test code = 2209) 8.7 MG/DL PROTEIN, TOTAL (test code = 2229) 5.9 G/DL ALBUMIN (test code = 2201) 3.7 G/DL CALC GLOBULIN (test code = 2240) 2.2 G/DL CALC A/G RATIO (test code = 2234) 1.7 RATIO BILIRUBIN, TOTAL (test code = 2207) 0.4 MG/DL ALKALINE PHOSPHATASE (test code = 2204) 92 U/L AST (test code = 2218) 21 U/L ALT (test code = 2219) 23 U/L Sae Alexander AustinHEMOGLOBIN [id number] 00:00:00* Test Item Value Reference Range Interpretation Comme nts HEMOGLOBIN A1c (test code = 42105) 5.7 % Sae Alexander AustinHEMOGLOBIN [id number] 00:00:00* Test Item Value Reference Range Interpretation Comme nts HEMOGLOBIN A1c (test code = 80146) 5.7 % Sae Alexander AustinHEMOGLOBIN [id number] 00:00:00* Test Item Value Reference Range Interpretation Comme nts HEMOGLOBIN A1c (test code = 33083) 5.7 % Sae Alexander AustinHEMOGLOBIN [id number] 00:00:00* Test Item Value Reference Range Interpretation Comme nts HEMOGLOBIN A1c (test code = 66656) 5.7 % Sae Alexander AustinHEMOGLOBIN [id number] 00:00:00* Test Item Value Reference Range Interpretation Comme nts HEMOGLOBIN A1c (test code = 98925) 5.7 % Sae Alexander AustinHEMOGLOBIN [id number] 00:00:00* Test Item Value Reference Range Interpretation Comme nts HEMOGLOBIN A1c (test code = 61031) 5.7 % Sae Alexander AustinHEMOGLOBIN [id number] 00:00:00* Test Item Value Reference Range Interpretation Comme nts HEMOGLOBIN A1c (test code = 20291) 5.7 % Sae Alexander AustinCOMPREHENSIVE METABOLIC [id number] 03:47:12* Test Item Value Reference Range Interpretation Comme nts GLUCOSE (test code = 2217) 128 MG/DL 70-99 H BUN (test code = 2208) 11 MG/DL 8-23 CREATININE (test code = 2214) 0.86 MG/DL 0.60-1.30 eGFR (2020 CKD-EPI) (test code = 61801) 70 ML/MIN/1.73 >60 CALC BUN/CREAT (test code = 2235) 13 RATIO 6-28 SODIUM (test code = 223) 141 MEQ/L 133-146 POTASSIUM (test code = 2228) 3.7 MEQ/L 3.5-5.4 CHLORIDE (test code = 2215) 102 MEQ/L 95-107 CARBON DIOXIDE (test code = 2206) 28 MEQ/L 19-31 CALCIUM (test code = 220) 9.3 MG/DL 8.5-10.5 PROTEIN, TOTAL (test code = 222) 6.4 G/DL 6.1-8.3 ALBUMIN (test code = 220) 4.2 G/DL 3.5-5.2 CALC GLOBULIN (test code = 2240) 2.2 G/DL 1.9-3.7 CALC A/G RATIO (test code = 223) 1.9 RATIO 1.0-2.6 BILIRUBIN, TOTAL (test code = 2206) 0.5 MG/DL See_Comment [Automated me ssage] The system which generated this result transmitted reference range: <=1.2. The reference range was not used to interpret this result as normal/abnormal. ALKALINE PHOSPHATASE (test code = 2203) 81 U/L 40-142 AST (test code = 2218) 21 U/L 9-40 ALT (test code = 2219) 19 U/L 5-40 LIPID [id number] 03:47:12* Test Item Value Reference Range Interpretation Comme nts CHOLESTEROL (test code = 2210) 169 MG/DL <200 TRIGLYCERIDES (test code = 2232) 141 MG/DL <150 HDL CHOLESTEROL (test code = 2220) 37 MG/DL >39 L CALC LDL CHOL (test code = 223) 107 MG/DL <100 H NOTE: CALCULATED LDL IS BASED ON KAYLYNN-CHAVEZ METHOD WHICHINCLUDES ADJUSTABLE TRIGLYCERIDE:VLDL CHOLESTEROL RATIO.THIS FACTOR VARIES BY MEASURED TRIGLYCERIDE AND NON-HDLCHOLESTEROL CONCENTRATIONS WITH INCREASED CALCULATED LDL SEENIN HIGHER TRIGLYCERIDE OR LOWER NON-HDL SPECIMENS. FOR MOREINFORMATION, SEE CLIENT ANNOUNCEMENT AT [email or web address] RATIO LDL/HDL (test code = 2238) 2.89 RATIO <3.22 [facility] has i mportant pathology staff changes effective 04/26/2022. New pathology staff will provide uninterrupted, excellent patient care and clinical consultation. See URL: [email or web address]. UNLESS OTHERWISE INDICATED, ALL TESTING PERFORMED AT [facility] [address] [place] [id number] CHILD DEVELOPMENT PROFESSOR: COLLEEN GONZALES M.D. CLIA NUMBER [id number] [facility] [place]. [id number] LIPID PANEL [ADDED]2022-05-12 00:00:00* Test Item Value Reference Range Interpretation Comme nts CHOLESTEROL (test code = 2210) 169 MG/DL TRIGLYCERIDES (test code = 2232) 141 MG/DL HDL CHOLESTEROL (test code = 2220) 37 MG/DL CALC LDL CHOL (test code = 2237) 107 MG/DL RISK RATIO LDL/HDL (test cod e = 2238) 2.89 RATIO Sae MatiasCOMPREHENSIVE METABOLIC PANEL [ADDED]2022-05-12 00:00:00* Test Item Value Reference Range Interpretation Comme nts GLUCOSE (test code = 2217) 128 MG/DL BUN (test code = 2208) 11 MG/DL CREATININE (test code = 2214) 0.86 MG/DL eGFR (2020 CKD-EPI) (test co de = 43669) 70 ML/MIN/1.73 CALC BUN/CREAT (test code = 2235) 13 RATIO SODIUM (test code = 2231) 141 MEQ/L POTASSIUM (test code = 2228) 3.7 MEQ/L CHLORIDE (test code = 2215) 102 MEQ/L CARBON DIOXIDE (test code = 2206) 28 MEQ/L CALCIUM (test code = 2209) 9.3 MG/DL PROTEIN, TOTAL (test code = 2229) 6.4 G/DL ALBUMIN (test code = 2201) 4.2 G/DL CALC GLOBULIN (test code = 2240) 2.2 G/DL CALC A/G RATIO (test code = 2234) 1.9 RATIO BILIRUBIN, TOTAL (test code = 2207) 0.5 MG/DL ALKALINE PHOSPHATASE (test code = 2204) 81 U/L AST (test code = 2218) 21 U/L ALT (test code = 2219) 19 U/L Sae MatiasLIPID PANEL [ADDED]2022-05-12 00:00:00* Test Item Value Reference Range Interpretation Comme nts CHOLESTEROL (test code = 2210) 169 MG/DL TRIGLYCERIDES (test code = 2232) 141 MG/DL HDL CHOLESTEROL (test code = 2220) 37 MG/DL CALC LDL CHOL (test code = 2237) 107 MG/DL RISK RATIO LDL/HDL (test cod e = 2238) 2.89 RATIO Sae Alexander AustinCOMPREHENSIVE METABOLIC PANEL [ADDED]2022-05-12 00:00:00* Test Item Value Reference Range Interpretation Comme nts GLUCOSE (test code = 2217) 128 MG/DL BUN (test code = 2208) 11 MG/DL CREATININE (test code = 2214) 0.86 MG/DL eGFR (2020 CKD-EPI) (test co de = 03960) 70 ML/MIN/1.73 CALC BUN/CREAT (test code = 2235) 13 RATIO SODIUM (test code = 2231) 141 MEQ/L POTASSIUM (test code = 2228) 3.7 MEQ/L CHLORIDE (test code = 2215) 102 MEQ/L CARBON DIOXIDE (test code = 2206) 28 MEQ/L CALCIUM (test code = 2209) 9.3 MG/DL PROTEIN, TOTAL (test code = 2229) 6.4 G/DL ALBUMIN (test code = 2201) 4.2 G/DL CALC GLOBULIN (test code = 2240) 2.2 G/DL CALC A/G RATIO (test code = 2234) 1.9 RATIO BILIRUBIN, TOTAL (test code = 2207) 0.5 MG/DL ALKALINE PHOSPHATASE (test code = 2204) 81 U/L AST (test code = 2218) 21 U/L ALT (test code = 2219) 19 U/L Sae Catherine AustinLIPID PANEL [ADDED]2022-05-12 00:00:00* Test Item Value Reference Range Interpretation Comme nts CHOLESTEROL (test code = 2210) 169 MG/DL TRIGLYCERIDES (test code = 2232) 141 MG/DL HDL CHOLESTEROL (test code = 2220) 37 MG/DL CALC LDL CHOL (test code = 2237) 107 MG/DL RISK RATIO LDL/HDL (test cod e = 2238) 2.89 RATIO Sae Alexander AustinCOMPREHENSIVE METABOLIC PANEL [ADDED]2022-05-12 00:00:00* Test Item Value Reference Range Interpretation Comme nts GLUCOSE (test code = 2217) 128 MG/DL BUN (test code = 2208) 11 MG/DL CREATININE (test code = 2214) 0.86 MG/DL eGFR (2020 CKD-EPI) (test co de = 15798) 70 ML/MIN/1.73 CALC BUN/CREAT (test code = 2235) 13 RATIO SODIUM (test code = 2231) 141 MEQ/L POTASSIUM (test code = 2228) 3.7 MEQ/L CHLORIDE (test code = 2215) 102 MEQ/L CARBON DIOXIDE (test code = 2206) 28 MEQ/L CALCIUM (test code = 2209) 9.3 MG/DL PROTEIN, TOTAL (test code = 2229) 6.4 G/DL ALBUMIN (test code = 2201) 4.2 G/DL CALC GLOBULIN (test code = 2240) 2.2 G/DL CALC A/G RATIO (test code = 2234) 1.9 RATIO BILIRUBIN, TOTAL (test code = 2207) 0.5 MG/DL ALKALINE PHOSPHATASE (test code = 2204) 81 U/L AST (test code = 2218) 21 U/L ALT (test code = 2219) 19 U/L Sae MatiasLIPID PANEL [ADDED]2022-05-12 00:00:00* Test Item Value Reference Range Interpretation Comme nts CHOLESTEROL (test code = 2210) 169 MG/DL TRIGLYCERIDES (test code = 2232) 141 MG/DL HDL CHOLESTEROL (test code = 2220) 37 MG/DL CALC LDL CHOL (test code = 2237) 107 MG/DL RISK RATIO LDL/HDL (test cod e = 2238) 2.89 RATIO Sae MatiasCOMPREHENSIVE METABOLIC PANEL [ADDED]2022-05-12 00:00:00* Test Item Value Reference Range Interpretation Comme nts GLUCOSE (test code = 2217) 128 MG/DL BUN (test code = 2208) 11 MG/DL CREATININE (test code = 2214) 0.86 MG/DL eGFR (2020 CKD-EPI) (test co de = 69726) 70 ML/MIN/1.73 CALC BUN/CREAT (test code = 2235) 13 RATIO SODIUM (test code = 2231) 141 MEQ/L POTASSIUM (test code = 2228) 3.7 MEQ/L CHLORIDE (test code = 2215) 102 MEQ/L CARBON DIOXIDE (test code = 2206) 28 MEQ/L CALCIUM (test code = 2209) 9.3 MG/DL PROTEIN, TOTAL (test code = 2229) 6.4 G/DL ALBUMIN (test code = 2201) 4.2 G/DL CALC GLOBULIN (test code = 2240) 2.2 G/DL CALC A/G RATIO (test code = 2234) 1.9 RATIO BILIRUBIN, TOTAL (test code = 2207) 0.5 MG/DL ALKALINE PHOSPHATASE (test code = 2204) 81 U/L AST (test code = 2218) 21 U/L ALT (test code = 2219) 19 U/L Sae Alexander AustinLIPID PANEL [ADDED]2022-05-12 00:00:00* Test Item Value Reference Range Interpretation Comme nts CHOLESTEROL (test code = 2210) 169 MG/DL TRIGLYCERIDES (test code = 2232) 141 MG/DL HDL CHOLESTEROL (test code = 2220) 37 MG/DL CALC LDL CHOL (test code = 2237) 107 MG/DL RISK RATIO LDL/HDL (test cod e = 2238) 2.89 RATIO Sae Alexander FlorencioCOMPREHENSIVE METABOLIC PANEL [ADDED]2022-05-12 00:00:00* Test Item Value Reference Range Interpretation Comme nts GLUCOSE (test code = 2217) 128 MG/DL BUN (test code = 2208) 11 MG/DL CREATININE (test code = 2214) 0.86 MG/DL eGFR (2020 CKD-EPI) (test co de = 64057) 70 ML/MIN/1.73 CALC BUN/CREAT (test code = 2235) 13 RATIO SODIUM (test code = 2231) 141 MEQ/L POTASSIUM (test code = 2228) 3.7 MEQ/L CHLORIDE (test code = 2215) 102 MEQ/L CARBON DIOXIDE (test code = 2206) 28 MEQ/L CALCIUM (test code = 2209) 9.3 MG/DL PROTEIN, TOTAL (test code = 2229) 6.4 G/DL ALBUMIN (test code = 2201) 4.2 G/DL CALC GLOBULIN (test code = 2240) 2.2 G/DL CALC A/G RATIO (test code = 2234) 1.9 RATIO BILIRUBIN, TOTAL (test code = 2207) 0.5 MG/DL ALKALINE PHOSPHATASE (test code = 2204) 81 U/L AST (test code = 2218) 21 U/L ALT (test code = 2219) 19 U/L Sae Alexander AustinLIPID PANEL [ADDED]2022-05-12 00:00:00* Test Item Value Reference Range Interpretation Comme nts CHOLESTEROL (test code = 2210) 169 MG/DL TRIGLYCERIDES (test code = 2232) 141 MG/DL HDL CHOLESTEROL (test code = 2220) 37 MG/DL CALC LDL CHOL (test code = 2237) 107 MG/DL RISK RATIO LDL/HDL (test cod e = 2238) 2.89 RATIO Sae MatiasCOMPREHENSIVE METABOLIC PANEL [ADDED]2022-05-12 00:00:00* Test Item Value Reference Range Interpretation Comme nts GLUCOSE (test code = 2217) 128 MG/DL BUN (test code = 2208) 11 MG/DL CREATININE (test code = 2214) 0.86 MG/DL eGFR (2020 CKD-EPI) (test co de = 59051) 70 ML/MIN/1.73 CALC BUN/CREAT (test code = 2235) 13 RATIO SODIUM (test code = 2231) 141 MEQ/L POTASSIUM (test code = 2228) 3.7 MEQ/L CHLORIDE (test code = 2215) 102 MEQ/L CARBON DIOXIDE (test code = 2206) 28 MEQ/L CALCIUM (test code = 2209) 9.3 MG/DL PROTEIN, TOTAL (test code = 2229) 6.4 G/DL ALBUMIN (test code = 2201) 4.2 G/DL CALC GLOBULIN (test code = 2240) 2.2 G/DL CALC A/G RATIO (test code = 2234) 1.9 RATIO BILIRUBIN, TOTAL (test code = 2207) 0.5 MG/DL ALKALINE PHOSPHATASE (test code = 2204) 81 U/L AST (test code = 2218) 21 U/L ALT (test code = 2219) 19 U/L Sae Alexander AustinLIPID PANEL [ADDED]2022-05-12 00:00:00* Test Item Value Reference Range Interpretation Comme nts CHOLESTEROL (test code = 2210) 169 MG/DL TRIGLYCERIDES (test code = 2232) 141 MG/DL HDL CHOLESTEROL (test code = 2220) 37 MG/DL CALC LDL CHOL (test code = 2237) 107 MG/DL RISK RATIO LDL/HDL (test cod e = 2238) 2.89 RATIO Sae Alexander FlorencioCOMPREHENSIVE METABOLIC PANEL [ADDED]2022-05-12 00:00:00* Test Item Value Reference Range Interpretation Comme nts GLUCOSE (test code = 2217) 128 MG/DL BUN (test code = 2208) 11 MG/DL CREATININE (test code = 2214) 0.86 MG/DL eGFR (2020 CKD-EPI) (test co de = 83758) 70 ML/MIN/1.73 CALC BUN/CREAT (test code = 2235) 13 RATIO SODIUM (test code = 2231) 141 MEQ/L POTASSIUM (test code = 2228) 3.7 MEQ/L CHLORIDE (test code = 2215) 102 MEQ/L CARBON DIOXIDE (test code = 2206) 28 MEQ/L CALCIUM (test code = 2209) 9.3 MG/DL PROTEIN, TOTAL (test code = 2229) 6.4 G/DL ALBUMIN (test code = 2201) 4.2 G/DL CALC GLOBULIN (test code = 2240) 2.2 G/DL CALC A/G RATIO (test code = 2234) 1.9 RATIO BILIRUBIN, TOTAL (test code = 2207) 0.5 MG/DL ALKALINE PHOSPHATASE (test code = 2204) 81 U/L AST (test code = 2218) 21 U/L ALT (test code = 2219) 19 U/L Sae MatiasRENAL FUNCTION [id number] 05:00:21* Test Item Value Reference Range Interpretation Comme nts GLUCOSE (test code = 2217) 125 MG/DL 70-99 H BUN (test code = 2208) 18 MG/DL 8-23 CREATININE (test code = 2214) 0.81 MG/DL 0.60-1.30 eGFR (2020 CKD-EPI) (test code = 45576) 75 ML/MIN/1.73 >60 CALC BUN/CREAT (test code = 2235) 22 RATIO 6-28 SODIUM (test code = 2231) 143 MEQ/L 133-146 POTASSIUM (test code = 2228) 3.9 MEQ/L 3.5-5.4 CHLORIDE (test code = 2215) 106 MEQ/L 95-107 CARBON DIOXIDE (test code = 2206) 27 MEQ/L 19-31 CALCIUM (test code = 2209) 9.0 MG/DL 8.5-10.5 PHOSPHORUS (test code = 2227) 3.2 MG/DL 2.5-4.5 ALBUMIN (test code = 2201) 3.8 G/DL 3.5-5.2 UNLESS OTHERWISE INDICATED, ALL TESTING PERFORMED ATCLINJob on [employer] [facility] [employer] [address] [place] [address] CHILD DEVELOPMENT PROFESSOR: VIK PETERSEN M.D. [place] NUMBER [id number] [facility] [place]. [id number] RENAL FUNCTION PANEL [ADDED]2021-10-05 00:00:00* Test Item Value Reference Range Interpretation Comme nts GLUCOSE (test code = 2217) 125 MG/DL BUN (test code = 2208) 18 MG/DL CREATININE (test code = 2214) 0.81 MG/DL eGFR (2020 CKD-EPI) (test co de = 17797) 75 ML/MIN/1.73 CALC BUN/CREAT (test code = 2235) 22 RATIO SODIUM (test code = 2231) 143 MEQ/L POTASSIUM (test code = 2228) 3.9 MEQ/L CHLORIDE (test code = 2215) 106 MEQ/L CARBON DIOXIDE (test code = 2206) 27 MEQ/L CALCIUM (test code = 2209) 9.0 MG/DL PHOSPHORUS (test code = 2227) 3.2 MG/DL ALBUMIN (test code = 2201) 3.8 G/DL Sae MatiasRENAL FUNCTION PANEL [ADDED]2021-10-05 00:00:00* Test Item Value Reference Range Interpretation Comme nts GLUCOSE (test code = 2217) 125 MG/DL BUN (test code = 2208) 18 MG/DL CREATININE (test code = 2214) 0.81 MG/DL eGFR (2020 CKD-EPI) (test co de = 87428) 75 ML/MIN/1.73 CALC BUN/CREAT (test code = 2235) 22 RATIO SODIUM (test code = 2231) 143 MEQ/L POTASSIUM (test code = 2228) 3.9 MEQ/L CHLORIDE (test code = 2215) 106 MEQ/L CARBON DIOXIDE (test code = 2206) 27 MEQ/L CALCIUM (test code = 2209) 9.0 MG/DL PHOSPHORUS (test code = 2227) 3.2 MG/DL ALBUMIN (test code = 2201) 3.8 G/DL Sae F AustinRENAL FUNCTION PANEL [ADDED]2021-10-05 00:00:00* Test Item Value Reference Range Interpretation Comme nts GLUCOSE (test code = 2217) 125 MG/DL BUN (test code = 2208) 18 MG/DL CREATININE (test code = 2214) 0.81 MG/DL eGFR (2020 CKD-EPI) (test co de = 57058) 75 ML/MIN/1.73 CALC BUN/CREAT (test code = 2235) 22 RATIO SODIUM (test code = 2231) 143 MEQ/L POTASSIUM (test code = 2228) 3.9 MEQ/L CHLORIDE (test code = 2215) 106 MEQ/L CARBON DIOXIDE (test code = 2206) 27 MEQ/L CALCIUM (test code = 2209) 9.0 MG/DL PHOSPHORUS (test code = 2227) 3.2 MG/DL ALBUMIN (test code = 2201) 3.8 G/DL Sae F AustinRENAL FUNCTION PANEL [ADDED]2021-10-05 00:00:00* Test Item Value Reference Range Interpretation Comme nts GLUCOSE (test code = 2217) 125 MG/DL BUN (test code = 2208) 18 MG/DL CREATININE (test code = 2214) 0.81 MG/DL eGFR (2020 CKD-EPI) (test co de = 91497) 75 ML/MIN/1.73 CALC BUN/CREAT (test code = 2235) 22 RATIO SODIUM (test code = 2231) 143 MEQ/L POTASSIUM (test code = 2228) 3.9 MEQ/L CHLORIDE (test code = 2215) 106 MEQ/L CARBON DIOXIDE (test code = 2206) 27 MEQ/L CALCIUM (test code = 2209) 9.0 MG/DL PHOSPHORUS (test code = 2227) 3.2 MG/DL ALBUMIN (test code = 2201) 3.8 G/DL Sae F AustinRENAL FUNCTION PANEL [ADDED]2021-10-05 00:00:00* Test Item Value Reference Range Interpretation Comme nts GLUCOSE (test code = 2217) 125 MG/DL BUN (test code = 2208) 18 MG/DL CREATININE (test code = 2214) 0.81 MG/DL eGFR (2020 CKD-EPI) (test co de = 49576) 75 ML/MIN/1.73 CALC BUN/CREAT (test code = 2235) 22 RATIO SODIUM (test code = 2231) 143 MEQ/L POTASSIUM (test code = 2228) 3.9 MEQ/L CHLORIDE (test code = 2215) 106 MEQ/L CARBON DIOXIDE (test code = 2206) 27 MEQ/L CALCIUM (test code = 2209) 9.0 MG/DL PHOSPHORUS (test code = 2227) 3.2 MG/DL ALBUMIN (test code = 2201) 3.8 G/DL Sae Alexander SundownRENAL FUNCTION PANEL [ADDED]2021-10-05 00:00:00* Test Item Value Reference Range Interpretation Comme nts GLUCOSE (test code = 2217) 125 MG/DL BUN (test code = 2208) 18 MG/DL CREATININE (test code = 2214) 0.81 MG/DL eGFR (2020 CKD-EPI) (test co de = 41367) 75 ML/MIN/1.73 CALC BUN/CREAT (test code = 2235) 22 RATIO SODIUM (test code = 2231) 143 MEQ/L POTASSIUM (test code = 2228) 3.9 MEQ/L CHLORIDE (test code = 2215) 106 MEQ/L CARBON DIOXIDE (test code = 2206) 27 MEQ/L CALCIUM (test code = 2209) 9.0 MG/DL PHOSPHORUS (test code = 2227) 3.2 MG/DL ALBUMIN (test code = 2201) 3.8 G/DL Sae F SundownRENAL FUNCTION PANEL [ADDED]2021-10-05 00:00:00* Test Item Value Reference Range Interpretation Comme nts GLUCOSE (test code = 2217) 125 MG/DL BUN (test code = 2208) 18 MG/DL CREATININE (test code = 2214) 0.81 MG/DL eGFR (2020 CKD-EPI) (test co de = 95740) 75 ML/MIN/1.73 CALC BUN/CREAT (test code = 2235) 22 RATIO SODIUM (test code = 2231) 143 MEQ/L POTASSIUM (test code = 2228) 3.9 MEQ/L CHLORIDE (test code = 2215) 106 MEQ/L CARBON DIOXIDE (test code = 2206) 27 MEQ/L CALCIUM (test code = 2209) 9.0 MG/DL PHOSPHORUS (test code = 2227) 3.2 MG/DL ALBUMIN (test code = 2201) 3.8 G/DL Sae MatiasPOFLETCHER [id number] 20:24:29* Test Item Value Reference Range Interpretation Comme [facility] POCT Creatinine (test code = 2764202348) 0.7 mg/dL 0.5-1.1 Lab Interpretation (test cod e = 58884-4) [facility] [id number] 05:36:56* Test Item Value Reference Range Interpretation Comme nts GLUCOSE (test code = 2217) 106 MG/DL 70-99 H BUN (test code = 2208) 15 MG/DL 8-23 CREATININE (test code = 2214) 1.00 MG/DL 0.60-1.30 eGFR (2020 CKD-EPI) (test code = 74696) 58 ML/MIN/1.73 >60 L CALC BUN/CREAT (test code = 2235) 15 RATIO 6-28 SODIUM (test code = 223) 140 MEQ/L 133-146 POTASSIUM (test code = 2228) 4.8 MEQ/L 3.5-5.4 CHLORIDE (test code = 2215) 104 MEQ/L 95-107 CARBON DIOXIDE (test code = 2206) 24 MEQ/L 19-31 CALCIUM (test code = 2209) 9.4 MG/DL 8.5-10.5 PROTEIN, TOTAL (test code = 2229) 6.7 G/DL 6.1-8.3 ALBUMIN (test code = 2201) 4.3 G/DL 3.5-5.2 CALC GLOBULIN (test code = 2240) 2.4 G/DL 1.9-3.7 CALC A/G RATIO (test code = 2234) 1.8 RATIO 1.0-2.6 BILIRUBIN, TOTAL (test code = 2207) 0.3 MG/DL See_Comment [Automated me ssage] The system which generated this result transmitted reference range: <=1.2. The reference range was not used to interpret this result as normal/abnormal. ALKALINE PHOSPHATASE (test code = 2204) 109 U/L 40-142 AST (test code = 2218) 23 U/L 9-40 ALT (test code = 2219) 25 U/L 5-40 LIPID [id number] 05:36:56* Test Item Value Reference Range Interpretation Comme nts CHOLESTEROL (test code = 2210) 202 MG/DL <200 H TRIGLYCERIDES (test code = 2232) 148 MG/DL <150 HDL CHOLESTEROL (test code = 2220) 40 MG/DL >39 CALC LDL CHOL (test code = 2237) 135 MG/DL <100 H NOTE: CALCULATED LDL IS BASED ON KAYLYNN-CHAVEZ METHOD WHICHINCLUDES ADJUSTABLE TRIGLYCERIDE:VLDL CHOLESTEROL RATIO.THIS FACTOR VARIES BY MEASURED TRIGLYCERIDE AND NON-HDLCHOLESTEROL CONCENTRATIONS WITH INCREASED CALCULATED LDL SEENIN HIGHER TRIGLYCERIDE OR LOWER NON-HDL SPECIMENS. FOR MOREINFORMATION, SEE CLIENT ANNOUNCEMENT AT [email or web address] RISK RATIO LDL/HDL (test code = 2238) 3.38 RATIO <3.22 H UNLESS OTHERW ISE INDICATED, ALL TESTING PERFORMED ATCLINJob on Corp[employer] [facility]OLOGY [employer] [employer] [address] [place] [id number] CHILD DEVELOPMENT PROFESSOR: VIK PETERSEN M.D. CLIA NUMBER [id number] [facility] [place]. [id number] COMPREHENSIVE METABOLIC [id number] 00:00:00* Test Item Value Reference Range Interpretation Comme nts GLUCOSE (test code = 2217) 106 MG/DL BUN (test code = 2208) 15 MG/DL CREATININE (test code = 2214) 1.00 MG/DL eGFR (2020 CKD-EPI) (test co de = 32214) 58 ML/MIN/1.73 CALC BUN/CREAT (test code = 2235) 15 RATIO SODIUM (test code = 2231) 140 MEQ/L POTASSIUM (test code = 2228) 4.8 MEQ/L CHLORIDE (test code = 2215) 104 MEQ/L CARBON DIOXIDE (test code = 2206) 24 MEQ/L CALCIUM (test code = 2209) 9.4 MG/DL PROTEIN, TOTAL (test code = 2229) 6.7 G/DL ALBUMIN (test code = 2201) 4.3 G/DL CALC GLOBULIN (test code = 2240) 2.4 G/DL CALC A/G RATIO (test code = 2234) 1.8 RATIO BILIRUBIN, TOTAL (test code = 2207) 0.3 MG/DL ALKALINE PHOSPHATASE (test code = 2204) 109 U/L AST (test code = 2218) 23 U/L ALT (test code = 2219) 25 U/L Sae MatiasLIPID [id number] 00:00:00* Test Item Value Reference Range Interpretation Comme nts CHOLESTEROL (test code = 2210) 202 MG/DL TRIGLYCERIDES (test code = 2232) 148 MG/DL HDL CHOLESTEROL (test code = 2220) 40 MG/DL CALC LDL CHOL (test code = 2237) 135 MG/DL RISK RATIO LDL/HDL (test cod e = 2238) 3.38 RATIO Sae Alexander AustinCOMPREHENSIVE METABOLIC [id number] 00:00:00* Test Item Value Reference Range Interpretation Comme nts GLUCOSE (test code = 2217) 106 MG/DL BUN (test code = 2208) 15 MG/DL CREATININE (test code = 2214) 1.00 MG/DL eGFR (2020 CKD-EPI) (test co de = 24182) 58 ML/MIN/1.73 CALC BUN/CREAT (test code = 2235) 15 RATIO SODIUM (test code = 2231) 140 MEQ/L POTASSIUM (test code = 2228) 4.8 MEQ/L CHLORIDE (test code = 2215) 104 MEQ/L CARBON DIOXIDE (test code = 2206) 24 MEQ/L CALCIUM (test code = 2209) 9.4 MG/DL PROTEIN, TOTAL (test code = 2229) 6.7 G/DL ALBUMIN (test code = 2201) 4.3 G/DL CALC GLOBULIN (test code = 2240) 2.4 G/DL CALC A/G RATIO (test code = 2234) 1.8 RATIO BILIRUBIN, TOTAL (test code = 2207) 0.3 MG/DL ALKALINE PHOSPHATASE (test code = 2204) 109 U/L AST (test code = 2218) 23 U/L ALT (test code = 2219) 25 U/L Sae Alexander AustinLIPID [id number] 00:00:00* Test Item Value Reference Range Interpretation Comme nts CHOLESTEROL (test code = 2210) 202 MG/DL TRIGLYCERIDES (test code = 2232) 148 MG/DL HDL CHOLESTEROL (test code = 2220) 40 MG/DL CALC LDL CHOL (test code = 2237) 135 MG/DL RISK RATIO LDL/HDL (test cod e = 2238) 3.38 RATIO Sae MatiasCOMPREHENSIVE METABOLIC [id number] 00:00:00* Test Item Value Reference Range Interpretation Comme nts GLUCOSE (test code = 2217) 106 MG/DL BUN (test code = 2208) 15 MG/DL CREATININE (test code = 2214) 1.00 MG/DL eGFR (2020 CKD-EPI) (test co de = 82755) 58 ML/MIN/1.73 CALC BUN/CREAT (test code = 2235) 15 RATIO SODIUM (test code = 2231) 140 MEQ/L POTASSIUM (test code = 2228) 4.8 MEQ/L CHLORIDE (test code = 2215) 104 MEQ/L CARBON DIOXIDE (test code = 2206) 24 MEQ/L CALCIUM (test code = 2209) 9.4 MG/DL PROTEIN, TOTAL (test code = 2229) 6.7 G/DL ALBUMIN (test code = 2201) 4.3 G/DL CALC GLOBULIN (test code = 2240) 2.4 G/DL CALC A/G RATIO (test code = 2234) 1.8 RATIO BILIRUBIN, TOTAL (test code = 2207) 0.3 MG/DL ALKALINE PHOSPHATASE (test code = 2204) 109 U/L AST (test code = 2218) 23 U/L ALT (test code = 2219) 25 U/L Sae Alexander AustinLIPID [id number] 00:00:00* Test Item Value Reference Range Interpretation Comme nts CHOLESTEROL (test code = 2210) 202 MG/DL TRIGLYCERIDES (test code = 2232) 148 MG/DL HDL CHOLESTEROL (test code = 2220) 40 MG/DL CALC LDL CHOL (test code = 2237) 135 MG/DL RISK RATIO LDL/HDL (test cod e = 2238) 3.38 RATIO Sae MatiasCOMPREHENSIVE METABOLIC [id number] 00:00:00* Test Item Value Reference Range Interpretation Comme nts GLUCOSE (test code = 2217) 106 MG/DL BUN (test code = 2208) 15 MG/DL CREATININE (test code = 2214) 1.00 MG/DL eGFR (2020 CKD-EPI) (test co de = 92763) 58 ML/MIN/1.73 CALC BUN/CREAT (test code = 2235) 15 RATIO SODIUM (test code = 2231) 140 MEQ/L POTASSIUM (test code = 2228) 4.8 MEQ/L CHLORIDE (test code = 2215) 104 MEQ/L CARBON DIOXIDE (test code = 2206) 24 MEQ/L CALCIUM (test code = 2209) 9.4 MG/DL PROTEIN, TOTAL (test code = 2229) 6.7 G/DL ALBUMIN (test code = 2201) 4.3 G/DL CALC GLOBULIN (test code = 2240) 2.4 G/DL CALC A/G RATIO (test code = 2234) 1.8 RATIO BILIRUBIN, TOTAL (test code = 2207) 0.3 MG/DL ALKALINE PHOSPHATASE (test code = 2204) 109 U/L AST (test code = 2218) 23 U/L ALT (test code = 2219) 25 U/L Sae MatiasLIPID [id number] 00:00:00* Test Item Value Reference Range Interpretation Comme nts CHOLESTEROL (test code = 2210) 202 MG/DL TRIGLYCERIDES (test code = 2232) 148 MG/DL HDL CHOLESTEROL (test code = 2220) 40 MG/DL CALC LDL CHOL (test code = 2237) 135 MG/DL RISK RATIO LDL/HDL (test cod e = 2238) 3.38 RATIO Sae MatisaCOMPREHENSIVE METABOLIC [id number] 00:00:00* Test Item Value Reference Range Interpretation Comme nts GLUCOSE (test code = 2217) 106 MG/DL BUN (test code = 2208) 15 MG/DL CREATININE (test code = 2214) 1.00 MG/DL eGFR (2020 CKD-EPI) (test co de = 70994) 58 ML/MIN/1.73 CALC BUN/CREAT (test code = 2235) 15 RATIO SODIUM (test code = 2231) 140 MEQ/L POTASSIUM (test code = 2228) 4.8 MEQ/L CHLORIDE (test code = 2215) 104 MEQ/L CARBON DIOXIDE (test code = 2206) 24 MEQ/L CALCIUM (test code = 2209) 9.4 MG/DL PROTEIN, TOTAL (test code = 2229) 6.7 G/DL ALBUMIN (test code = 2201) 4.3 G/DL CALC GLOBULIN (test code = 2240) 2.4 G/DL CALC A/G RATIO (test code = 2234) 1.8 RATIO BILIRUBIN, TOTAL (test code = 2207) 0.3 MG/DL ALKALINE PHOSPHATASE (test code = 2204) 109 U/L AST (test code = 2218) 23 U/L ALT (test code = 2219) 25 U/L Sae MatiasLIPID [id number] 00:00:00* Test Item Value Reference Range Interpretation Comme nts CHOLESTEROL (test code = 2210) 202 MG/DL TRIGLYCERIDES (test code = 2232) 148 MG/DL HDL CHOLESTEROL (test code = 2220) 40 MG/DL CALC LDL CHOL (test code = 2237) 135 MG/DL RISK RATIO LDL/HDL (test cod e = 2238) 3.38 RATIO Sae MatiasCOMPREHENSIVE METABOLIC [id number] 00:00:00* Test Item Value Reference Range Interpretation Comme nts GLUCOSE (test code = 2217) 106 MG/DL BUN (test code = 2208) 15 MG/DL CREATININE (test code = 2214) 1.00 MG/DL eGFR (2020 CKD-EPI) (test co de = 55806) 58 ML/MIN/1.73 CALC BUN/CREAT (test code = 2235) 15 RATIO SODIUM (test code = 2231) 140 MEQ/L POTASSIUM (test code = 2228) 4.8 MEQ/L CHLORIDE (test code = 2215) 104 MEQ/L CARBON DIOXIDE (test code = 2206) 24 MEQ/L CALCIUM (test code = 2209) 9.4 MG/DL PROTEIN, TOTAL (test code = 2229) 6.7 G/DL ALBUMIN (test code = 2201) 4.3 G/DL CALC GLOBULIN (test code = 2240) 2.4 G/DL CALC A/G RATIO (test code = 2234) 1.8 RATIO BILIRUBIN, TOTAL (test code = 2207) 0.3 MG/DL ALKALINE PHOSPHATASE (test code = 2204) 109 U/L AST (test code = 2218) 23 U/L ALT (test code = 2219) 25 U/L Sae MatiasLIPID [id number] 00:00:00* Test Item Value Reference Range Interpretation Comme nts CHOLESTEROL (test code = 2210) 202 MG/DL TRIGLYCERIDES (test code = 2232) 148 MG/DL HDL CHOLESTEROL (test code = 2220) 40 MG/DL CALC LDL CHOL (test code = 2237) 135 MG/DL RISK RATIO LDL/HDL (test cod e = 2238) 3.38 RATIO Sae MatiasCOMPREHENSIVE METABOLIC [id number] 00:00:00* Test Item Value Reference Range Interpretation Comme nts GLUCOSE (test code = 2217) 106 MG/DL BUN (test code = 2208) 15 MG/DL CREATININE (test code = 2214) 1.00 MG/DL eGFR (2020 CKD-EPI) (test co de = 98624) 58 ML/MIN/1.73 CALC BUN/CREAT (test code = 2235) 15 RATIO SODIUM (test code = 2231) 140 MEQ/L POTASSIUM (test code = 2228) 4.8 MEQ/L CHLORIDE (test code = 2215) 104 MEQ/L CARBON DIOXIDE (test code = 2206) 24 MEQ/L CALCIUM (test code = 2209) 9.4 MG/DL PROTEIN, TOTAL (test code = 2229) 6.7 G/DL ALBUMIN (test code = 2201) 4.3 G/DL CALC GLOBULIN (test code = 2240) 2.4 G/DL CALC A/G RATIO (test code = 2234) 1.8 RATIO BILIRUBIN, TOTAL (test code = 2207) 0.3 MG/DL ALKALINE PHOSPHATASE (test code = 2204) 109 U/L AST (test code = 2218) 23 U/L ALT (test code = 2219) 25 U/L Sae MatiasLIPID [id number] 00:00:00* Test Item Value Reference Range Interpretation Comme nts CHOLESTEROL (test code = 2210) 202 MG/DL TRIGLYCERIDES (test code = 2232) 148 MG/DL HDL CHOLESTEROL (test code = 2220) 40 MG/DL CALC LDL CHOL (test code = 2237) 135 MG/DL RISK RATIO LDL/HDL (test cod e = 2238) 3.38 RATIO Sae MatiasMR KNEE RIGHT WO [id number] 22:09:53Complex medial meniscus tear. 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 No MCL, cruciate ligament or LCL complex derangement. EXAM: MRIRIGHT KNEE HISTORY: right knee internal derangement COMPARISON: Right knee radiographs dated 10/22/2020 TECHNIQUE AND FINDINGS: Multiplanar multiweighted MR imaging of the right ?knee was performed. BONE AND JOINT:Tricompartmental marginal osteophytes are present. A small sized kneeeffusion is present. Grade 2/3 patellofemoral compartment chondral thinningis present. Grade 2 chondral fissuring is seen along the central aspect ofthe lateral femoral condyle and lateral tibial plateau with diffuse grade2/3 chondral thinning involving the medial compartment. Scattered areas ofsubcortical cystic change and edema are noted along the periphery of themedial plateau and the central/peripheral marginsof the medial condyle. MENISCI:Lateral meniscus is intact. Blunting of the free edge of the medialmeniscus body is present which is peripherally extruded. An inferiorly andsuperiorly surfacing vertical/horizontal oblique tear is seen at the levelof the posterior horn and body medial meniscus. Thereis minimal inferiorrecess meniscal fragment displacement at the level of the body. This tearextendsinto the posterior horn root insertion. LIGAMENTS AND TENDONS:The fibular collateral ligament, cruciate ligaments, MCL, patellofemoralretinacula, popliteus tendon, biceps femoris tendon, iliotibial band andextensor mechanism are intact. SOFT TISSUES:Trace fluid is seen within the semimembranosus/medial gastrocnemius bursaspanning approximately 3 cm. ?Subcentimeter osseous bodies are seen deep tothe medial head gastrocnemius along the periphery of this bursa. [facility], Radiant Results Inft User - 11/05/2020 5:10 PM CDT EXAM:MRI RIGHT KNEEHISTORY: right knee internal derangement COMPARISON: Right knee radiographs dated 10/22/2020TECHNIQUEAND FINDINGS:Multiplanar multiweighted MR imaging of the right knee was performed.BONE AND JOINT:Tri compartmental marginal osteophytes are present. A small sized kneeeffusion is present. Grade 2/3 patellofemoral compartment chondral thinningis present. Grade 2 chondral fissuring is seen along the central aspect ofthe lateral femoral condyle and lateral tibial plateau with diffuse grade2/3 chondral thinning involving the medial compartment. Scattered areas ofsubcortical cystic change and edema are noted along the periphery of themedial plateau and the central/peripheral margins of the medial condyle.MENISCI:Lateral meniscus is intact. Blunting of the free edge of the medialmeniscus body is present which is peripherally extruded. An inferiorly andsuperiorly surfacing vertical/horizontal oblique tear is seen at the levelof the posterior horn and body medial meniscus. There is minimal inferiorrecess meniscal fragment displacement at the level of the body. This tearextends into the posterior horn root insertion.LIGAMENTS AND TENDONS:The fibular collateral ligament, cruciate ligaments, MCL, patellofemoralretinacula, popliteus tendon, biceps femoris tendon, iliotibial band andextensor mechanism are intact.SOFT TISSUES:Trace fluid is seen within the semimembranosus/medial gastrocnemius bursaspanning approximately 3 cm. 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.Irving's cyst.No MCL, cruciate ligament or LCL complex derangement.[facility] CenterOCC[facility]LD,[facility]ECAL,IMMUNOASSAY DIAG [ADDED]2020-06-24 00:00:00* Test Item Value Reference Range Interpretation Comme nts OCCULT BLD, FECAL (test code = 53019) NEGATIVE Sae F AustinOCCULT BLD,FECAL,IMMUNOASSAY DIAG [ADDED]2020-06-24 00:00:00* Test Item Value Reference Range Interpretation Comme nts OCCULT BLD, FECAL (test code = 20135) NEGATIVE Sae F AustinOCCULT BLD,FECAL,IMMUNOASSAY DIAG [ADDED]2020-06-24 00:00:00* Test Item Value Reference Range Interpretation Comme nts OCCULT BLD, FECAL (test code = 54918) NEGATIVE Sae F AustinOCCULT BLD,FECAL,IMMUNOASSAY DIAG [ADDED]2020-06-24 00:00:00* Test Item Value Reference Range Interpretation Comme nts OCCULT BLD, FECAL (test code = 31334) NEGATIVE Sae F AustinOCCULT BLD,FECAL,IMMUNOASSAY DIAG [ADDED]2020-06-24 00:00:00* Test Item Value Reference Range Interpretation Comme nts OCCULT BLD, FECAL (test code = 69102) NEGATIVE Sae F AustinOCCULT BLD,FECAL,IMMUNOASSAY DIAG [ADDED]2020-06-24 00:00:00* Test Item Value Reference Range Interpretation Comme nts OCCULT BLD, FECAL (test code = 30566) NEGATIVE Sae MatiasOCCULT BLD,FECAL,IMMUNOASSAY DIAG [ADDED]2020-06-24 00:00:00* Test Item Value Reference Range Interpretation Comme nts OCCULT BLD, FECAL (test code = 30896) NEGATIVE Sae Delacruz ABDOMEN W WO [id number] 20:18:07HISTORY: Subcentimeter pancreatic lesions.. TECHNIQUE: MRI studies of the abdomen were obtained using T2 SSFSE, dualecho FSPGR, coronal VIBE/T2 HASTE, axial DWI, axial LAVA/T2 HASTEsequences. FINDINGS: Comparison is made with 01/23/2020 CT studies. Lower portions of the lungs included in this examination appear clear.Short sliding hiatal hernia suspected. No pleural effusion or pericardialeffusion. No ascites. LIVER, SPLEEN, KIDNEYS AND ADRENAL GLANDS: Liver is 15.6 cm in size. Spleenmeasures approximately 10.5 x 4.5 cm. Mild hypertrophy of the left adrenalgland noted. No focal lesions detected in these organs, except for slightlyirregular shaped 16 mm lesion in the lower pole of the right kidneyconsistent with Bosniak type II renal cyst. Possible focal corticalscarring along the upper and lower poles of the kidneys noted.. Mildsuppression of signal within the liver noted in the out of phase SPGRimaging indicating mild diffuse hepatic steatosis. GALLBLADDER, PANCREAS: No gallstones. Biliary ducts and the pancreatic ductappear of normal size. MRCP images are normal. Abdominal aorta, hepatic/portal venous systems appear patent. Renal veinsare patent. Retroverted location of left renal vein noted. Visualized intestines showed constipation with moderate retained fecalmaterial in thevisualized portions of large bowel. Visualized bones showed no aggressive bone lesions. CONCLUSIONS:1. 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 Mild atrophy in the tail portion the pancreas. Small lesions describedin the CT studies are likely focal areas of fatty infiltration of thepancreatic parenchyma. No enhancing pancreatic lesions are visualized. Nocystic lesions are seen in the pancreas. ?[facility], [facility] Results Inft User - 05/11/2020 3:19 PM CDTHISTORY: Subcentimeter pancreatic lesions..TECHNIQUE: MRI studies of the abdomen were obtained using T2 SSFSE,dualecho FSPGR, coronal VIBE/T2 HASTE, axial DWI, axial LAVA/T2 HASTEsequences.FINDINGS: Comparisonis made with 01/23/2020 CT studies.Lower portions of the lungs included in this examination appear clear.Short sliding hiatal hernia suspected. No pleural effusion or pericardialeffusion. No ascites.LIVER, SPLEEN, KIDNEYS AND ADRENAL GLANDS: Liver is 15.6 cm in size. Spleenmeasures approximately 10.5 x 4.5 cm. Mild hypertrophy of the left adrenalgland noted. No focal lesions detected in these organs, except for slightlyirregular shaped 16 mm lesion in the lower pole of the right kidneyconsistent with Bosniak type II renal cyst. Possible focal corticalscarring along the upper and lower poles of the kidneys noted.. Mildsuppression of signal within the liver noted in the out of phase SPGRimaging indicating mild diffuse hepatic steatosis.GALLBLADDER, PANCREAS: No gallstones. Biliary ducts andthe pancreatic ductappear of normal size. MRCP images are normal.Abdominal aorta, hepatic/portal venous systems appear patent. Renal veinsare patent. Retroverted location of left renal vein noted.Visualized intestines showed constipation with moderate retained fecalmaterial in the visualized portions of large bowel.Visualized bones showed no aggressive bone lesions.CONCLUSIONS:1. 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 Mild atrophy in the tail portion the pancreas. Small lesions describedin the CT studies are likely focal areas of fatty infiltration of thepa ncreatic parenchyma. No enhancing pancreatic lesions are visualized. Nocystic lesions are seen in the pancreas.[facility] CenterLIPID PANEL 2020-02-10 00:00:00* Test Item Value Reference Range Interpretation Comme nts CHOLESTEROL (test code = 2210) 178 MG/DL TRIGLYCERIDES (test code = 2232) 269 MG/DL HDL CHOLESTEROL (test code = 2220) 33 MG/DL CALC LDL CHOL (test code = 2237) 107 MG/DL RISK RATIO LDL/HDL (test cod e = 2238) 3.24 RATIO Sae F FlorencioCOMPREHENSIVE METABOLIC [id number] 00:00:00* Test Item Value Reference Range Interpretation Comme nts GLUCOSE (test code = 2217) 113 MG/DL BUN (test code = 2208) 18 MG/DL CREATININE (test code = 2214) 0.92 MG/DL eGFR AMER. (test cod e = 39810) 71 ML/MIN/1.73 eGFR NON- AMER. (test code = 80386) 61 ML/MIN/1.73 CALC BUN/CREAT (test code = 2235) 20 RATIO SODIUM (test code = 2231) 139 MEQ/L POTASSIUM (test code = 2228) 4.1 MEQ/L CHLORIDE (test code = 2215) 102 MEQ/L CARBON DIOXIDE (test code = 2206) 27 MEQ/L CALCIUM (test code = 2209) 9.0 MG/DL PROTEIN, TOTAL (test code = 2229) 6.6 G/DL ALBUMIN (test code = 2201) 4.1 G/DL CALC GLOBULIN (test code = 2240) 2.5 G/DL CALC A/G RATIO (test code = 2234) 1.6 RATIO BILIRUBIN, TOTAL (test code = 2207) 0.3 MG/DL ALKALINE PHOSPHATASE (test code = 2204) 86 U/L AST (test code = 2218) 18 U/L ALT (test code = 2219) 21 U/L Sae Alexander SundownLIPID [id number] 00:00:00* Test Item Value Reference Range Interpretation Comme nts CHOLESTEROL (test code = 2210) 178 MG/DL TRIGLYCERIDES (test code = 2232) 269 MG/DL HDL CHOLESTEROL (test code = 2220) 33 MG/DL CALC LDL CHOL (test code = 2237) 107 MG/DL RISK RATIO LDL/HDL (test cod e = 2238) 3.24 RATIO Sae Alexander SundownCOMPREHENSIVE METABOLIC [id number] 00:00:00* Test Item Value Reference Range Interpretation Comme nts GLUCOSE (test code = 2217) 113 MG/DL BUN (test code = 2208) 18 MG/DL CREATININE (test code = 2214) 0.92 MG/DL eGFR AMER. (test cod e = 29933) 71 ML/MIN/1.73 eGFR NON- AMER. (test code = 93943) 61 ML/MIN/1.73 CALC BUN/CREAT (test code = 2235) 20 RATIO SODIUM (test code = 2231) 139 MEQ/L POTASSIUM (test code = 2228) 4.1 MEQ/L CHLORIDE (test code = 2215) 102 MEQ/L CARBON DIOXIDE (test code = 2206) 27 MEQ/L CALCIUM (test code = 2209) 9.0 MG/DL PROTEIN, TOTAL (test code = 2229) 6.6 G/DL ALBUMIN (test code = 2201) 4.1 G/DL CALC GLOBULIN (test code = 2240) 2.5 G/DL CALC A/G RATIO (test code = 2234) 1.6 RATIO BILIRUBIN, TOTAL (test code = 2207) 0.3 MG/DL ALKALINE PHOSPHATASE (test code = 2204) 86 U/L AST (test code = 2218) 18 U/L ALT (test code = 2219) 21 U/L Sae Alexander SundownLIPID [id number] 00:00:00* Test Item Value Reference Range Interpretation Comme nts CHOLESTEROL (test code = 2210) 178 MG/DL TRIGLYCERIDES (test code = 2232) 269 MG/DL HDL CHOLESTEROL (test code = 2220) 33 MG/DL CALC LDL CHOL (test code = 2237) 107 MG/DL RISK RATIO LDL/HDL (test cod e = 2238) 3.24 RATIO Sae MatiasCOMPREHENSIVE METABOLIC [id number] 00:00:00* Test Item Value Reference Range Interpretation Comme nts GLUCOSE (test code = 2217) 113 MG/DL BUN (test code = 2208) 18 MG/DL CREATININE (test code = 2214) 0.92 MG/DL eGFR AMER. (test cod e = 47750) 71 ML/MIN/1.73 eGFR NON- AMER. (test code = 60157) 61 ML/MIN/1.73 CALC BUN/CREAT (test code = 2235) 20 RATIO SODIUM (test code = 2231) 139 MEQ/L POTASSIUM (test code = 2228) 4.1 MEQ/L CHLORIDE (test code = 2215) 102 MEQ/L CARBON DIOXIDE (test code = 2206) 27 MEQ/L CALCIUM (test code = 2209) 9.0 MG/DL PROTEIN, TOTAL (test code = 2229) 6.6 G/DL ALBUMIN (test code = 2201) 4.1 G/DL CALC GLOBULIN (test code = 2240) 2.5 G/DL CALC A/G RATIO (test code = 2234) 1.6 RATIO BILIRUBIN, TOTAL (test code = 2207) 0.3 MG/DL ALKALINE PHOSPHATASE (test code = 2204) 86 U/L AST (test code = 2218) 18 U/L ALT (test code = 2219) 21 U/L Sae Alexander AustinLIPID [id number] 00:00:00* Test Item Value Reference Range Interpretation Comme nts CHOLESTEROL (test code = 2210) 178 MG/DL TRIGLYCERIDES (test code = 2232) 269 MG/DL HDL CHOLESTEROL (test code = 2220) 33 MG/DL CALC LDL CHOL (test code = 2237) 107 MG/DL RISK RATIO LDL/HDL (test cod e = 2238) 3.24 RATIO Sae MatiasCOMPREHENSIVE METABOLIC [id number] 00:00:00* Test Item Value Reference Range Interpretation Comme nts GLUCOSE (test code = 2217) 113 MG/DL BUN (test code = 2208) 18 MG/DL CREATININE (test code = 2214) 0.92 MG/DL eGFR AMER. (test cod e = 03363) 71 ML/MIN/1.73 eGFR NON- AMER. (test code = 31962) 61 ML/MIN/1.73 CALC BUN/CREAT (test code = 2235) 20 RATIO SODIUM (test code = 2231) 139 MEQ/L POTASSIUM (test code = 2228) 4.1 MEQ/L CHLORIDE (test code = 2215) 102 MEQ/L CARBON DIOXIDE (test code = 2206) 27 MEQ/L CALCIUM (test code = 2209) 9.0 MG/DL PROTEIN, TOTAL (test code = 2229) 6.6 G/DL ALBUMIN (test code = 2201) 4.1 G/DL CALC GLOBULIN (test code = 2240) 2.5 G/DL CALC A/G RATIO (test code = 2234) 1.6 RATIO BILIRUBIN, TOTAL (test code = 2207) 0.3 MG/DL ALKALINE PHOSPHATASE (test code = 2204) 86 U/L AST (test code = 2218) 18 U/L ALT (test code = 2219) 21 U/L Sae Alexander AustinLIPID [id number] 00:00:00* Test Item Value Reference Range Interpretation Comme nts CHOLESTEROL (test code = 2210) 178 MG/DL TRIGLYCERIDES (test code = 2232) 269 MG/DL HDL CHOLESTEROL (test code = 2220) 33 MG/DL CALC LDL CHOL (test code = 2237) 107 MG/DL RISK RATIO LDL/HDL (test cod e = 2238) 3.24 RATIO Sae Alexander AustinCOMPREHENSIVE METABOLIC [id number] 00:00:00* Test Item Value Reference Range Interpretation Comme nts GLUCOSE (test code = 2217) 113 MG/DL BUN (test code = 2208) 18 MG/DL CREATININE (test code = 2214) 0.92 MG/DL eGFR AMER. (test cod e = 94763) 71 ML/MIN/1.73 eGFR NON- AMER. (test code = 04017) 61 ML/MIN/1.73 CALC BUN/CREAT (test code = 2235) 20 RATIO SODIUM (test code = 2231) 139 MEQ/L POTASSIUM (test code = 2228) 4.1 MEQ/L CHLORIDE (test code = 2215) 102 MEQ/L CARBON DIOXIDE (test code = 2206) 27 MEQ/L CALCIUM (test code = 2209) 9.0 MG/DL PROTEIN, TOTAL (test code = 2229) 6.6 G/DL ALBUMIN (test code = 2201) 4.1 G/DL CALC GLOBULIN (test code = 2240) 2.5 G/DL CALC A/G RATIO (test code = 2234) 1.6 RATIO BILIRUBIN, TOTAL (test code = 2207) 0.3 MG/DL ALKALINE PHOSPHATASE (test code = 2204) 86 U/L AST (test code = 2218) 18 U/L ALT (test code = 2219) 21 U/L Sae Alexander AustinLIPID [id number] 00:00:00* Test Item Value Reference Range Interpretation Comme nts CHOLESTEROL (test code = 2210) 178 MG/DL TRIGLYCERIDES (test code = 2232) 269 MG/DL HDL CHOLESTEROL (test code = 2220) 33 MG/DL CALC LDL CHOL (test code = 2237) 107 MG/DL RISK RATIO LDL/HDL (test cod e = 2238) 3.24 RATIO Sae Alexander AustinCOMPREHENSIVE METABOLIC [id number] 00:00:00* Test Item Value Reference Range Interpretation Comme nts GLUCOSE (test code = 2217) 113 MG/DL BUN (test code = 2208) 18 MG/DL CREATININE (test code = 2214) 0.92 MG/DL eGFR AMER. (test cod e = 51726) 71 ML/MIN/1.73 eGFR NON- AMER. (test code = 11886) 61 ML/MIN/1.73 CALC BUN/CREAT (test code = 2235) 20 RATIO SODIUM (test code = 2231) 139 MEQ/L POTASSIUM (test code = 2228) 4.1 MEQ/L CHLORIDE (test code = 2215) 102 MEQ/L CARBON DIOXIDE (test code = 2206) 27 MEQ/L CALCIUM (test code = 2209) 9.0 MG/DL PROTEIN, TOTAL (test code = 2229) 6.6 G/DL ALBUMIN (test code = 2201) 4.1 G/DL CALC GLOBULIN (test code = 2240) 2.5 G/DL CALC A/G RATIO (test code = 2234) 1.6 RATIO BILIRUBIN, TOTAL (test code = 2207) 0.3 MG/DL ALKALINE PHOSPHATASE (test code = 2204) 86 U/L AST (test code = 2218) 18 U/L ALT (test code = 2219) 21 U/L Sae Alexander AustinLIPID [id number] 00:00:00* Test Item Value Reference Range Interpretation Comme nts CHOLESTEROL (test code = 2210) 178 MG/DL TRIGLYCERIDES (test code = 2232) 269 MG/DL HDL CHOLESTEROL (test code = 2220) 33 MG/DL CALC LDL CHOL (test code = 2237) 107 MG/DL RISK RATIO LDL/HDL (test cod e = 2238) 3.24 RATIO Sae Alexander SundownCOMPREHENSIVE METABOLIC [id number] 00:00:00* Test Item Value Reference Range Interpretation Comme nts GLUCOSE (test code = 2217) 113 MG/DL BUN (test code = 2208) 18 MG/DL CREATININE (test code = 2214) 0.92 MG/DL eGFR AMER. (test cod e = 50525) 71 ML/MIN/1.73 eGFR NON- AMER. (test code = 32221) 61 ML/MIN/1.73 CALC BUN/CREAT (test code = 2235) 20 RATIO SODIUM (test code = 2231) 139 MEQ/L POTASSIUM (test code = 2228) 4.1 MEQ/L CHLORIDE (test code = 2215) 102 MEQ/L CARBON DIOXIDE (test code = 2206) 27 MEQ/L CALCIUM (test code = 2209) 9.0 MG/DL PROTEIN, TOTAL (test code = 2229) 6.6 G/DL ALBUMIN (test code = 2201) 4.1 G/DL CALC GLOBULIN (test code = 2240) 2.5 G/DL CALC A/G RATIO (test code = 2234) 1.6 RATIO BILIRUBIN, TOTAL (test code = 2207) 0.3 MG/DL ALKALINE PHOSPHATASE (test code = 2204) 86 U/L AST (test code = 2218) 18 U/L ALT (test code = 2219) 21 U/L Sae Alexander AustinCT ABDOMEN PELVIS W [id number] 22:45:581. ?Sigmoid diverticulitis without drainable fluid collection or perforatedviscus. 2. ?Subtle rightmiddle lobe and left lingula tree-in-bud opacitiessuspicious for atypical infectious process including aspiration. 3. ?Subcentimeter hypoattenuating pancreatic lesions, likely IPMNs or focalfatty atrophy. Preliminary Report Dictated by Resident: Jerry Osullivan ?MD. Elver, havereviewed this study and agree with theabove report.CT OF THE ABDOMEN AND PELVIS WITH IV CONTRAST HISTORY: Abd pain, acute, generalized LLQ TECHNIQUE: Continuous axial imaging was performed with sagittal and coronalreformatted images after the administration of 20 cc's IV Omnipaque 350. COMPARISON: None FINDINGS: LOWER THORAX: Small volume tree-in-bud opacities noted along the rightfissure and left lingula with adjacent subcentimeter pulmonary nodulesalong the axial interstitium measuring 4 mm on the right and 5 mm on theleft (2:4, 11). No pericardial effusion or cardiomegaly. LIVER: Normal contour. GALLBLADDER & BILIARY TREE: Trace pericholecystic fluid noted withoutdistention of the gallbladder or adjacent inflammatory changes. Tiny stonesuspected at the gallbladder neck (2:40). PANCREAS: A few hypoattenuating lesions noted in the pancreatic neck andbody adjacent to the pancreatic duct measure up to 6 mm (2:46) withoutapparent communication with the pancreatic duct or dilation. Diffusepancreatic tail fatty atrophy. SPLEEN: No splenomegaly. ADRENALS: No adrenal nodules. KIDNEYS:Hypoattenuating 1.6 cm right lower pole simple cyst. Right upperpole chronic cortical defect. Suspected. Otherwise, symmetric enhancement.Mild asymmetric distention of the right middistal ureter, likely reactiveto adjacent inflammation. No focal suspicious lesion or stones. ? PELVIS/BLADDER: The bladder is underdistended with mild wall thickening andperivesicular stranding, nonspecific and likelyreactive. Atrophicanteverted uterus. No suspicious adnexal masses.. GASTROINTESTINAL: Severe sigmoid diverticulosis with marked wallthickening, inflammatory stranding resulting in tethering to the uterusanteriorly and adnexa (6:63 (4:33). No drainable fluid collection orevidence of perforated viscus. Long segment narrowing of the sigmoid colonwith secondary partially fluid-filled and distended colon seen proximal. Noovert signs of bowel obstruction. The appendix is normal (6:40). PERITONEUM/RETROPERITONEUM: No free air. VASCULAR: ?Atherosclerotic calcifications are seen in the abdominal aortaand its branches. Calcified and soft atheromatous plaque results in mildceliac ostial narrowing and moderate SMA narrowing at its origin. LYMPHATICS: Reactive bilateral internal iliac chain lymph nodes withoutsuspicious morphology. BONES AND SOFT TISSUES: No concerning bony lesion identified. Osteopenia.Mild chronic degenerative changes. Left acetabular sclerotic bone island. [facility], Radiant ResultsInft User - 01/23/2020 4:47 PM CSTCT OF THE ABDOMEN AND PELVIS WITH IV CONTRASTHISTORY: Abd pain, ac wilmar, generalized LLQ TECHNIQUE: Continuous axial imaging was performed with sagittal and coronalreformatted images after the administration of 20 cc's IV Omnipaque 350.COMPARISON: NoneFINDINGS:LOWER THORAX: Small volume tree-in-bud opacities noted along the rightfissure and left lingula with adjacent subcentimeter pulmonary nodulesalong the axial interstitium measuring 4 mm on the right and 5 mm on theleft (2:4, 11). No pericardial effusion or cardiomegaly. LIVER: Normal contour. GALLBLADDER & BILIARY TREE: Trace pericholecystic fluid noted withoutdistention of the gallbladder or adjacent inflammatory changes. Tiny stonesuspected at the gallbladder neck (2:40).PANCREAS: A few hypoattenuating lesions noted in the pancreatic neck andbody adjacent to the pancreatic duct measure up to 6 mm (2:46) withoutapparent communication with the pancreatic duct or dilation. Diffusepancreatic tail fatty atrophy.SPLEEN: No splenomegaly. ADRENALS: No adrenal nodules. KIDNEYS: Hypoattenuating 1.6 cmright lower pole simple cyst. Right upperpole chronic cortical defect. Suspected. Otherwise, symmetric enhancement.Mild asymmetric distention of the right middistal ureter, likely reactiveto adjacentinflammation. No focal suspicious lesion or stones. PELVIS/BLADDER: The bladder is underdistended with mild wall thickening andperivesicular stranding, nonspecific and likely reactive. Atrophicanteverted uterus. No suspicious adnexal masses.. GASTROINTESTINAL: Severe sigmoid diverticulosis with marked wallthickening, inflammatory stranding resulting in tethering to the uterusanteriorly and adnexa(6:63 (4:33). No drainable fluid collection orevidence of perforated viscus. Long segment narrowingof the sigmoid colonwith secondary partially fluid-filled and distended colon seen proximal. Noovert signs of bowel obstruction. The appendix is normal (6:40). PERITONEUM/RETROPERITONEUM: No free air.VASCULAR: Atherosclerotic calcifications are seen in the abdominal aortaand its branches. Calcifiedand soft atheromatous plaque results in mildceliac ostial narrowing and moderate SMA narrowing at its origin.LYMPHATICS: Reactive bilateral internal iliac chain lymph nodes withoutsuspicious morphology.BONES AND SOFT TISSUES: No concerning bony lesion identified. Osteopenia.Mild chronic degenerative changes. Left acetabular sclerotic bone island.IMPRESSION1. Sigmoid diverticulitis without drainable fluid collection or perforatedviscus.2. Subtle right middle lobe and left lingula tree-in-bud opacitiessuspicious for atypical infectious process including aspiration.3. Subcentimeter hypoattenuating pancreatic lesions, likely IPMNs or focalfatty atrophy.Preliminary Report Dictated by Resident: Jerry Martinez MD., have reviewed this study and agree with theabove report.[facility] CenterComplete [facility]abolic Panel 2020-01-23 21:16:00* Test Item Value Reference Range Interpretation Comme nts NA (test code = 4904949945) 138 mmol/L 135-145 K (test code = 1099771692) 3.8 mmol/L 3.5-5 CL (test code = 3980498206) 104 mmol/L 98-108 CO2 TOTAL (test code = 8846137523) 25 mmol/L 23-31 AGAP (test code = 8350372024) 2-16 BUN (test code = 7232121201) 14 mg/dL 7-23 GLUCOSE (test code = 0226405195) 116 mg/dL 70-110 H CREATININE (test code = 0853137041) 0.71 mg/dL 0.5-1.04 TOTAL BILI (test code = 5315420028) 0.9 mg/dL 0.1-1.1 CALCIUM (test code = 7145387174) 9.2 mg/dL 8.6-10.6 T PROTEIN (test code = 6988407625) 7.2 g/dL 6.3-8.2 ALBUMIN (test code = 0412029171) 4.0 g/dL 3.5-5 ALK PHOS (test code = 7981138170) 116 U/L 34-122 ALTv (test code = 1742-6) 42 U/L 5-35 H AST(SGOT) (test code = 7625587885) 37 U/L 13-40 eGFR Calculation (Non-) (test code = 8007181885) mL/min/1.73m2 eGFR Calculation () (test code = 9451969672) mL/min/1.73m2 JAG (test code = JAG) Association of Glomerular Filtration Rate (GFR) and Staging of Kidney Disease* + --+ --+ ------+| GFR (mL/min/1.73 m2) ?| With Kidney Damage ?| ?Without Kidney Damage+ --------+ --------+ +| ?>90 ?| ?Stage one ?| ? Normal ?+ ---+ ---+ -------+| ?60-89 ?| ?Stage two ?| ? Decreased GFR ? + --+ --+ ------+| ?30-59 ?| ?Stage three ?| ? Stage three ? + --+ --+ ------+| ?15-29 ?| ?Stage four ? | ? Stage four ?+ ---+ ---+ -------+| ?<15 (or dialysis) ? ?| ?Stage five ? | ? Stage five ?+ ---+ ---+ -------+ *Each stage assumes the associated GFR level has been in effect for at least three months. ?Stages 1 to 5, with or without kidney disease, indicate chronic kidney disease. Notes: Determination of stages one and two (with eGFR >59mL/min/1.73 m2) requires estimation of kidney damage for at least three months as defined by structural or functional abnormalities of the kidney, manifested by either:Pathological abnormalities or Markers of kidney damage (including abnormalities in the composition of the blood or urine or abnormalities in imaging tests). Lab Interpretation (test code = 13154-1) Abnormal [facility] CenterLipase, [id number] 21:15:00* Test Item Value Reference Range Interpretation Comme nts LIPASE (test code = 0617310582) 44 U/L 0-220 Lab Interpretation (test cod e = 71998-3) Normal [facility] CenterUrinalysis2020-11-27 21:08:00* Test Item Value Reference Range Interpretation Comme nts APPEARANCE (test code = 3408846317) Clear Clear COLOR (test code = 2919504981) Colorless Yellow A PH (test code = 0589019813) 4.8-8.0 SP GRAVITY (test code = 9488187713) 1.003-1.030 L GLU U QUAL (test code = 7657358067) Normal Normal BLOOD (test code = 3196800923) Negative Negative KETONES (test code = 2874386736) Negative Negative PROTEIN (test code = 2887-8) Negative Negative UROBILIN (test code = 5217020242) Normal Normal BILIRUBIN (test code = 9864494615) Negative Negative NITRITE (test code = 4299839252) Negative Negative LEUK MANDA (test code = 9014296236) Negative Negative RBC/HPF (test code = [id number]) <1 See_Comment [Automated [employer]] The system which generated this result transmitted reference range: 0 - 3 HPF. The reference range was not used to interpret this result as normal/abnormal. WBC/HPF (test code = 7845078431) <1 See_Comment [Automated [employer]] The system which generated this result transmitted reference range: 0 - 5 HPF. The reference range was not used to interpret this result as normal/abnormal. BACTERIA (test code = 7479517547) Negative Negative SQ EPITH (test code = 0893830539) <1 HPF Lab Interpretation (test code = 21456-6) Abnormal [facility] with [id number] 20:58:00* Test Item Value Reference Range Interpretation Comme nts WBC (test code = 6690-2) See_Comment [Automated messa ge] The system which generated this result transmitted reference range: 4.30 - 11.10 10*3/?L. The reference range was not used to interpret this result as normal/abnormal. RBC (test code = 789-8) See_Comment [Automated messa ge] The system which generated this result transmitted reference range: 3.93 - 5.25 10*6/?L. The reference range was not used to interpret this result as normal/abnormal. HGB (test code = 718-7) 11.6 g/dL 11.6-15 HCT (test code = 4544-3) 33.9 % 35.7-45.2 L MCV (test code = 787-2) 86.0 fL 80.6-95.5 MCH (test code = 785-6) 29.4 pg 25.9-32.8 MCHC (test code = 786-4) 34.2 g/dL 31.6-35.1 RDW-SD (test code = 13227-7) 39.6 fL 39-49.9 RDW-CV (test code = 788-0) 12.4 % 12-15.5 PLT (test code = 777-3) See_Comment [Automated messa ge] The system which generated this result transmitted reference range: 166 - 358 10*3/?L. The reference range was not used to interpret this result as normal/abnormal. MPV (test code = 26889-6) 9.9 fL 9.5-12.9 NRBC/100 WBC (test code = 9074908117) See_Comment [Automated [facility] ssage] The system which generated this result transmitted reference range: 0.0 - 10.0 /100 WBCs. The reference range was not used to interpret this result as normal/abnormal. NRBC x10^3 (test code = 2773476572) <0.01 See_Comment [Automated messa ge] The system which generated this result transmitted reference range: 10*3/?L. The reference range was not used to interpret this result as normal/abnormal. GRAN MAT (NEUT) % (test code = 770-8) 72.6 % IMM GRAN % (test code = 3138689028) 0.50 % LYMPH % (test code = 736-9) 16.6 % MONO % (test code = 5905-5) 7.6 % EOS % (test code = 713-8) 2.4 % BASO % (test code = 706-2) 0.3 % GRAN MAT x10^3(ANC) (test code = 1734823215) 6.40 10*3/uL 1.88-7.09 IMM GRAN x10^3 (test code = 4177256497) 0.04 10*3/uL 0-0.06 LYMPH x10^3 (test code = 731-0) 1.46 10*3/uL 1.32-3.29 MONO x10^3 (test code = 742-7) 0.67 10*3/uL 0.33-0.92 EOS x10^3 (test code = 711-2) 0.21 10*3/uL 0.03-0.39 BASO x10^3 (test code = 704-7) 0.03 10*3/uL 0.01-0.07 Lab Interpretation (test code = 87443-8) [facility] [id number] 00:00:00* Test Item Value Reference Range Interpretation Comme nts GLUCOSE (test code = 2345-7) 101 mg/dL UREA NITROGEN (BUN) (test code = 3094-0) 12 mg/dL CREATININE (test code = 2160-0) 0.80 mg/dL eGFR NON-AFR. ARGENTINE (test code = 75233-4) 73 mL/min/1.73m2 eGFR (test code = 53909-3) 84 mL/min/1.73m2 BUN/CREATININE RATIO (test code = 3097-3) NOT APPLICABLE (calc) SODIUM (test code = 2951-2) 142 mmol/L POTASSIUM (test code = 2823-3) 3.9 mmol/L CHLORIDE (test code = 5-0) 107 mmol/L CARBON DIOXIDE (test code = 2027-9) 28 mmol/L CALCIUM (test code = 38566-5) 8.9 mg/dL PROTEIN, TOTAL (test code = 2885-2) 6.6 g/dL ALBUMIN (test code = 1751-7) 4.1 g/dL GLOBULIN (test code = 55825-3) 2.5 g/dL(calc) ALBUMIN/GLOBULIN RATIO (test code = 1759-0) 1.6 (calc) BILIRUBIN, TOTAL (test code = 1975-2) 0.6 mg/dL ALKALINE PHOSPHATASE (test code = 6768-6) 81 U/L AST (test code = 1920-8) 18 U/L ALT (test code = 1742-6) 16 U/L Sae Catherine FlorencioLIPID PANEL (REFL)2019-08-08 00:00:00* Test Item Value Reference Range Interpretation Comme nts CHOLESTEROL, TOTAL (test cod e = 2092-3) 208 mg/dL HDL CHOLESTEROL (test code = 5-9) 40 mg/dL TRIGLYCERIDES (test code = 2571-8) 167 mg/dL LDL-CHOLESTEROL (test code = 15808-2) 138 mg/dL(calc) CHOL/HDLC RATIO (test code = 9830-1) 5.2 (calc) NON HDL CHOLESTEROL (test code = 51329-8) 168 mg/dL(calc) Sae Alexander FlorencioCOMPREHENSIVE METABOLIC [id number] 00:00:00* Test Item Value Reference Range Interpretation Comme nts GLUCOSE (test code = 2345-7) 101 mg/dL UREA NITROGEN (BUN) (test code = 3094-0) 12 mg/dL CREATININE (test code = 2160-0) 0.80 mg/dL eGFR NON-AFR. ARGENTINE (test code = 57812-4) 73 mL/min/1.73m2 eGFR (test code = 61887-7) 84 mL/min/1.73m2 BUN/CREATININE RATIO (test code = 3097-3) NOT APPLICABLE (calc) SODIUM (test code = 2951-2) 142 mmol/L POTASSIUM (test code = 2823-3) 3.9 mmol/L CHLORIDE (test code = 5-0) 107 mmol/L CARBON DIOXIDE (test code = 2027-) 28 mmol/L CALCIUM (test code = 11423-4) 8.9 mg/dL PROTEIN, TOTAL (test code = 2885-2) 6.6 g/dL ALBUMIN (test code = 1751-7) 4.1 g/dL GLOBULIN (test code = 88736-8) 2.5 g/dL(calc) ALBUMIN/GLOBULIN RATIO (test code = 1759-0) 1.6 (calc) BILIRUBIN, TOTAL (test code = 1975-2) 0.6 mg/dL ALKALINE PHOSPHATASE (test code = 6768-6) 81 U/L AST (test code = 1920-8) 18 U/L ALT (test code = 1742-6) 16 U/L Sae MatiasLIPID PANEL (REFL)2019-08-08 00:00:00* Test Item Value Reference Range Interpretation Comme nts CHOLESTEROL, TOTAL (test cod e = 2093-3) 208 mg/dL HDL CHOLESTEROL (test code = 2085-9) 40 mg/dL TRIGLYCERIDES (test code = 2571-8) 167 mg/dL LDL-CHOLESTEROL (test code = 87766-7) 138 mg/dL(calc) CHOL/HDLC RATIO (test code = 9830-1) 5.2 (calc) NON HDL CHOLESTEROL (test code = 32526-5) 168 mg/dL(calc) Sae MatiasCOMPREHENSIVE METABOLIC [id number] 00:00:00* Test Item Value Reference Range Interpretation Comme nts GLUCOSE (test code = 2345-7) 101 mg/dL UREA NITROGEN (BUN) (test code = 3094-0) 12 mg/dL CREATININE (test code = 2160-0) 0.80 mg/dL eGFR NON-AFR. ARGENTINE (test code = 89693-2) 73 mL/min/1.73m2 eGFR (test code = 74970-2) 84 mL/min/1.73m2 BUN/CREATININE RATIO (test code = 3097-3) NOT APPLICABLE (calc) SODIUM (test code = 2951-2) 142 mmol/L POTASSIUM (test code = 2823-3) 3.9 mmol/L CHLORIDE (test code = 2075-0) 107 mmol/L CARBON DIOXIDE (test code = 2027-) 28 mmol/L CALCIUM (test code = 00062-4) 8.9 mg/dL PROTEIN, TOTAL (test code = 2885-2) 6.6 g/dL ALBUMIN (test code = 1751-7) 4.1 g/dL GLOBULIN (test code = 06421-6) 2.5 g/dL(calc) ALBUMIN/GLOBULIN RATIO (test code = 1759-0) 1.6 (calc) BILIRUBIN, TOTAL (test code = 1975-2) 0.6 mg/dL ALKALINE PHOSPHATASE (test code = 6768-6) 81 U/L AST (test code = 1920-8) 18 U/L ALT (test code = 1742-6) 16 U/L Sae Alexander SundownLIPID PANEL (REFL)2019-08-08 00:00:00* Test Item Value Reference Range Interpretation Comme nts CHOLESTEROL, TOTAL (test cod e = 2093-3) 208 mg/dL HDL CHOLESTEROL (test code = 2085-9) 40 mg/dL TRIGLYCERIDES (test code = 2571-8) 167 mg/dL LDL-CHOLESTEROL (test code = 89700-0) 138 mg/dL(calc) CHOL/HDLC RATIO (test code = 9830-1) 5.2 (calc) NON HDL CHOLESTEROL (test code = 69052-8) 168 mg/dL(calc) Sae Alexander FlorencioCOMPREHENSIVE METABOLIC [id number] 00:00:00* Test Item Value Reference Range Interpretation Comme nts GLUCOSE (test code = 2345-7) 101 mg/dL UREA NITROGEN (BUN) (test code = 3094-0) 12 mg/dL CREATININE (test code = 2160-0) 0.80 mg/dL eGFR NON-AFR. ARGENTINE (test code = 51504-7) 73 mL/min/1.73m2 eGFR (test code = 26331-4) 84 mL/min/1.73m2 BUN/CREATININE RATIO (test code = 3097-3) NOT APPLICABLE (calc) SODIUM (test code = 2951-2) 142 mmol/L POTASSIUM (test code = 2823-3) 3.9 mmol/L CHLORIDE (test code = 2075-0) 107 mmol/L CARBON DIOXIDE (test code = 2027-9) 28 mmol/L CALCIUM (test code = 90213-8) 8.9 mg/dL PROTEIN, TOTAL (test code = 2885-2) 6.6 g/dL ALBUMIN (test code = 1751-7) 4.1 g/dL GLOBULIN (test code = 12150-6) 2.5 g/dL(calc) ALBUMIN/GLOBULIN RATIO (test code = 1759-0) 1.6 (calc) BILIRUBIN, TOTAL (test code = 1975-2) 0.6 mg/dL ALKALINE PHOSPHATASE (test code = 6768-6) 81 U/L AST (test code = 1920-8) 18 U/L ALT (test code = 1742-6) 16 U/L Sae Alexander SundownLIPID PANEL (REFL)2019-08-08 00:00:00* Test Item Value Reference Range Interpretation Comme nts CHOLESTEROL, TOTAL (test cod e = 3-3) 208 mg/dL HDL CHOLESTEROL (test code = 2085-9) 40 mg/dL TRIGLYCERIDES (test code = 2571-8) 167 mg/dL LDL-CHOLESTEROL (test code = 46765-5) 138 mg/dL(calc) CHOL/HDLC RATIO (test code = 9830-1) 5.2 (calc) NON HDL CHOLESTEROL (test code = 13669-4) 168 mg/dL(calc) Sae MatiasCOMPREHENSIVE METABOLIC [id number] 00:00:00* Test Item Value Reference Range Interpretation Comme nts GLUCOSE (test code = 2345-7) 101 mg/dL UREA NITROGEN (BUN) (test code = 3094-0) 12 mg/dL CREATININE (test code = 2160-0) 0.80 mg/dL eGFR NON-AFR. ARGENTINE (test code = 29294-3) 73 mL/min/1.73m2 eGFR (test code = 87464-1) 84 mL/min/1.73m2 BUN/CREATININE RATIO (test code = 3097-3) NOT APPLICABLE (calc) SODIUM (test code = 2951-2) 142 mmol/L POTASSIUM (test code = 2823-3) 3.9 mmol/L CHLORIDE (test code = 2075-0) 107 mmol/L CARBON DIOXIDE (test code = 2027-9) 28 mmol/L CALCIUM (test code = 88980-3) 8.9 mg/dL PROTEIN, TOTAL (test code = 2885-2) 6.6 g/dL ALBUMIN (test code = 1751-7) 4.1 g/dL GLOBULIN (test code = 29439-9) 2.5 g/dL(calc) ALBUMIN/GLOBULIN RATIO (test code = 1759-0) 1.6 (calc) BILIRUBIN, TOTAL (test code = 1975-2) 0.6 mg/dL ALKALINE PHOSPHATASE (test code = 6768-6) 81 U/L AST (test code = 1920-8) 18 U/L ALT (test code = 1742-6) 16 U/L Sae Alexander SundownLIPID PANEL (REFL)2019-08-08 00:00:00* Test Item Value Reference Range Interpretation Comme nts CHOLESTEROL, TOTAL (test cod e = 2093-3) 208 mg/dL HDL CHOLESTEROL (test code = 2085-9) 40 mg/dL TRIGLYCERIDES (test code = 2571-8) 167 mg/dL LDL-CHOLESTEROL (test code = 32830-3) 138 mg/dL(calc) CHOL/HDLC RATIO (test code = 9830-1) 5.2 (calc) NON HDL CHOLESTEROL (test code = 27710-7) 168 mg/dL(calc) Sae MatiasCOMPREHENSIVE METABOLIC [id number] 00:00:00* Test Item Value Reference Range Interpretation Comme nts GLUCOSE (test code = 2345-7) 101 mg/dL UREA NITROGEN (BUN) (test code = 3094-0) 12 mg/dL CREATININE (test code = 2160-0) 0.80 mg/dL eGFR NON-AFR. ARGENTINE (test code = 79264-3) 73 mL/min/1.73m2 eGFR (test code = 43659-7) 84 mL/min/1.73m2 BUN/CREATININE RATIO (test code = 3097-3) NOT APPLICABLE (calc) SODIUM (test code = 2951-2) 142 mmol/L POTASSIUM (test code = 2823-3) 3.9 mmol/L CHLORIDE (test code = 2075-0) 107 mmol/L CARBON DIOXIDE (test code = 2027-9) 28 mmol/L CALCIUM (test code = 61543-4) 8.9 mg/dL PROTEIN, TOTAL (test code = 2885-2) 6.6 g/dL ALBUMIN (test code = 1751-7) 4.1 g/dL GLOBULIN (test code = 04097-6) 2.5 g/dL(calc) ALBUMIN/GLOBULIN RATIO (test code = 1759-0) 1.6 (calc) BILIRUBIN, TOTAL (test code = 1975-2) 0.6 mg/dL ALKALINE PHOSPHATASE (test code = 6768-6) 81 U/L AST (test code = 1920-8) 18 U/L ALT (test code = 1742-6) 16 U/L Sae Alexander FlorencioLIPID PANEL (REFL)2019-08-08 00:00:00* Test Item Value Reference Range Interpretation Comme nts CHOLESTEROL, TOTAL (test cod e = 2093-3) 208 mg/dL HDL CHOLESTEROL (test code = 2085-9) 40 mg/dL TRIGLYCERIDES (test code = 2571-8) 167 mg/dL LDL-CHOLESTEROL (test code = 47595-8) 138 mg/dL(calc) CHOL/HDLC RATIO (test code = 9830-1) 5.2 (calc) NON HDL CHOLESTEROL (test code = 65874-3) 168 mg/dL(calc) Sae Alexander FlorencioCOMPREHENSIVE METABOLIC [id number] 00:00:00* Test Item Value Reference Range Interpretation Comme nts GLUCOSE (test code = 2345-7) 101 mg/dL UREA NITROGEN (BUN) (test code = 3094-0) 12 mg/dL CREATININE (test code = 2160-0) 0.80 mg/dL eGFR NON-AFR. ARGENTINE (test code = 13275-9) 73 mL/min/1.73m2 eGFR (test code = 30925-2) 84 mL/min/1.73m2 BUN/CREATININE RATIO (test code = 3097-3) NOT APPLICABLE (calc) SODIUM (test code = 2951-2) 142 mmol/L POTASSIUM (test code = 2823-3) 3.9 mmol/L CHLORIDE (test code = 2075-0) 107 mmol/L CARBON DIOXIDE (test code = 2027-9) 28 mmol/L CALCIUM (test code = 07266-7) 8.9 mg/dL PROTEIN, TOTAL (test code = 2885-2) 6.6 g/dL ALBUMIN (test code = 1751-7) 4.1 g/dL GLOBULIN (test code = 48928-2) 2.5 g/dL(calc) ALBUMIN/GLOBULIN RATIO (test code = 1759-0) 1.6 (calc) BILIRUBIN, TOTAL (test code = 1975-2) 0.6 mg/dL ALKALINE PHOSPHATASE (test code = 6768-6) 81 U/L AST (test code = 1920-8) 18 U/L ALT (test code = 1742-6) 16 U/L Sae Alexander SundownLIPID PANEL (REFL)2019-08-08 00:00:00* Test Item Value Reference Range Interpretation Comme nts CHOLESTEROL, TOTAL (test cod e = 2093-3) 208 mg/dL HDL CHOLESTEROL (test code = 2085-9) 40 mg/dL TRIGLYCERIDES (test code = 2571-8) 167 mg/dL LDL-CHOLESTEROL (test code = 64525-6) 138 mg/dL(calc) CHOL/HDLC RATIO (test code = 9830-1) 5.2 (calc) NON HDL CHOLESTEROL (test code = 35192-8) 168 mg/dL(calc) Sae Catherine Florencio Notes Date/Time Note Provider Source [facility]2025-07-25 00:00:00 [facility]2025-07-08 00:00:00 [facility]2025-04-23 00:00:00 [facility]2025-02-05 00:00:00 [facility]2024-11-06 00:00:00 [facility]2024-06-10 00:00:00 [facility]"
[2024-10-10] MEDS ORDERED: NA CHLORIDE 0.9% 1,000 ML ONE (17:08)
[2024-10-10 17:14] LABS: Absolute Lymphocytes (CBC) 1.1 K/uL (0.7-4.9); Hematocrit 32.4 % (36.0-45.0); Hemoglobin 11.6 g/dL (12.0-15.0); MCH 29.5 pg (27.0-35.0); MCHC 35.8 g/dL (32.0-36.0); MCV 82.3 fL (80-100); MPV 7.3 fL (7.6-11.3); Nucleated RBC Absolute Count 0.0 (0-0); Nucleated Red Blood Cells % 0.0 % (0-0); RBC Red Blood Cell Count 3.94 M/uL (3.86-4.86); White Blood Count 6.70 thou/uL (4.3-10.9)
[2024-10-10] MEDS ORDERED: FAMOTIDINE 20 MG/2 ML VIAL IV ONE (17:14)
[2024-10-10] MEDS ORDERED: ONDANSETRON 4 MG/2 ML VIAL ONE (17:14)
--- NOTE | 2024-10-10 17:33 | RAD REPORT ---
Procedure: Chest Single View HISTORY: Palpitations COMPARISON: July 2024 FINDINGS: The lungs appear clear of acute infiltrate. Lungs are mildly to moderately hyperaerated. No significant pleural effusion noted. The heart is normal size. IMPRESSION: No acute abnormality is displayed.
[2024-10-10 17:47] LABS: Sqamous Epithelial <5 /HPF (None Seen); Urine Crystals Unidentified Few /HPF (None Seen); Urine Culture Reflex Order REFLEXED; Urine Microscopic Reflex YN ORDER UMIC; Urine WBC Clump Rare /HPF (None Seen); Urine Yeast (Budding) Few /HPF (None Seen)
[2024-10-10 17:48] LABS: ALT/SGPT 23.0 U/L (13-56); AST/SGOT 22.0 U/L (15-37); Albumin 3.2 g/dL (3.4-5.0); Albumin/Globulin Ratio 0.9 (1.1-1.8); Alkaline Phosphatase 92.0 U/L (45-117); Anion Gap 8.9 mEq/L (5.0-15.0); BUN Blood Urea Nitrogen 14.0 mg/dL (7-18); Globulin 3.4 g/dL (2.3-3.5); Glucose Level 113.0 mg/dL (74-106); Lipase 136.0 U/L (13-75); Magnesium 1.9 mg/dL (1.6-2.4); Potassium 2.9 mEq/L (3.5-5.1)
--- NOTE | 2024-10-10 18:41 | RAD REPORT ---
EXAMINATION: CT ABDOMEN AND PELVIS WITH CONTRAST CLINICAL INDICATION: Abdominal pain. Vomiting TECHNIQUE: CT abdomen and pelvis was performed, after the administration of 100 cc Isovue-300.. Sagit raquel and coronal reconstructions were obtained. One or more of the following dose reduction techniques were used: Automated exposure control, adjustment of the mA and kV according to patient si ze, and iterative reconstruction. Unless otherwise specified, incidental findings do not require dedicated imaging follow-up. [id number]. Oral contrast was not given which limits evaluation of bowel and appendix. COMPARISON: .October 08, 2024 ultrasound FINDINGS: Liver, spleen, adrenals and left kidney unremarkable. 3.1 cm right renal cyst Small calcification pancreas may be the sequela of prior pancreatitis. No evidence of acute pancreati tis. Multiple small gallstones. Gallbladder wall appears borderline thickened. Moderate amount of stool throughout the colon. Diverticula stem from colon. Minimal stranding adjacent to the sigmoid colon. No adnexal mass IMPRESSION: Cholelithiasis with borderline gallbladder wall thickening Minimal sigmoid diverticulitis.
[2024-10-10] MEDS ORDERED: METOCLOPRAMIDE 10 MG/2mL INJ ONE (19:16)
[2024-10-10] MEDS ORDERED: MORPHINE 2 MG/ML SYR ONE (19:16)
--- NOTE | 2024-10-10 20:06 | ER ---
Nurse's Notes [facility] Name: Haylie Sherman Age: 79 yrs Sex: Female : 1945 Arrival Date: 10/10/2024 Time: 15:45 Bed 25 Private MD: Diagnosis: Other cholelithiasis without obstruction;Nausea;UTI/ Urinary tract infection, site not specified;Hypokalemia Presentation: 10/10 15:56 Chief complaint: Patient states: nausa and loss of appetite for the past 8 weeks, has ll1 lost 12 lbs in the last 2 months. Went to a GI doctor on Sunday and results showed gallstones on the [facility] [place]. Coronavirus screen: At this time, the client does not indicate any symptoms associated with coronavirus-19. 15:56 Method Of Arrival: Ambulatory ll1 16:05 Ebola Screen: Patient denies travel to an Ebola-affected area in the 21 days before nh2 illness onset. No symptoms or risks identified at this time. Initial Sepsis Screen: Does the patient meet any 2 criteria? No. Patient's initial sepsis screen is negative. Does the patient have a suspected source of infection? No. Patient's initial sepsis screen is negative. Risk Assessment: Do you want to hurt yourself or someone else? Patient reports no desire to harm self or others. Onset of symptoms was August 10, 2024. 16:05 Acuity: RIVAS 3 nh2 Triage Assessment: 16:08 General: Appears uncomfortable, well groomed, cachectic, Behavior is calm, cooperative, nh2 appropriate for age. Pain: Denies pain. Historical: - Allergies: 16:07 Codeine; nh2 - Immunization history:: Adult Immunizations up to date. - Infectious Disease History:: Denies. - Social history:: Smoking status: Patient denies any tobacco usage or history of. Screenin:00 [facility] ED Fall Risk Assessment (Adult) History of falling in the last 3 months, jb4 including since admission No falls in past 3 months (0 pts) Confusion or Disorientation No (0 pts) Intoxicated or Sedated No (0 pts) Impaired Gait No (0 pts) Mobility Assist Device Used No (0 pt) Altered Elimination No (0 pt) Score/Fall Risk Level 0 - 2 = Low Risk Oriented to surroundings, Maintained a safe environment. Abuse screen: Denies threats or abuse. Nutritional screening: No deficits noted. Tuberculosis screening: No symptoms or risk factors identified. Assessment: 16:00 General: Appears in no apparent distress. comfortable, Behavior is calm, cooperative, jb4 appropriate for age. Pain: Complains of pain in right upper quadrant Pain does not radiate. Pain currently is 0 out of 10 on a pain scale. Neuro: Level of Consciousness is awake, alert, obeys commands, Oriented to person, place, time, situation. Cardiovascular: Patient's skin is warm and dry. Respiratory: Airway is patent Respiratory effort is even, unlabored, Respiratory pattern is regular, symmetrical. GI: Abdomen is flat, non-distended, Reports upper abdominal pain, nausea. Derm: Skin is intact, Skin is pink, warm \T\ dry. Musculoskeletal: Circulation, motion, and sensation intact. Range of motion: intact in all extremities. 17:00 Reassessment: Patient appears in no apparent distress at this time. Patient and/or jb4 family updated on plan of care and expected duration. Pain level reassessed. Patient is alert, oriented x 3, equal unlabored respirations, skin warm/dry/pink. 18:00 Reassessment: Patient appears in no apparent distress at this time. Patient and/or jb4 family updated on plan of care and expected duration. Pain level reassessed. Patient is alert, oriented x 3, equal unlabored respirations, skin warm/dry/pink. 19:00 Reassessment: Patient appears in no apparent distress at this time. Patient and/or jb4 family updated on plan of care and expected duration. Pain level reassessed. Patient is alert, oriented x 3, equal unlabored respirations, skin warm/dry/pink. 20:56 Reassessment: Patient appears in no apparent distress at this time. Patient and/or jb4 family updated on plan of care and expected duration. Pain level reassessed. Patient is alert, oriented x 3, equal unlabored respirations, skin warm/dry/pink. Vital Signs: 16:05 BP 150 / 73; Pulse 71; Resp 18; Temp 97.9(TE); Pulse Ox 98% on R/A; nh2 16:08 BP 150 / 73; Pulse 71; Resp 18; Temp 97.8(TE); Pulse Ox 98% on R/A; Pain 0/10; nh2 16:15 Weight 55.79 kg; Height 5 ft. 2 in. ; jb4 17:15 BP 136 / 69; Pulse 65; Resp 16; Pulse Ox 97% on R/A; jb4 19:15 BP 131 / 66; Pulse 74; Resp 16; Pulse Ox 99% on R/A; jb4 20:15 BP 131 / 65; Pulse 73; Resp 16; Pulse Ox 97% on R/A; jb4 16:15 Body Mass Index 22.50 (55.79 kg, 157.48 cm) jb4 16:08 Pain Scale: Adult nh2 ED Course: 15:50 Patient arrived in ED. al6 15:58 Ronnie Ugarte PA is PHCP. cp 15:58 Ronnie Marshall MD is Attending Physician. cp 16:00 Arm band placed on Patient placed in an exam room, on a stretcher. ll1 16:07 Triage completed. nh2 17:06 XRAY Chest (1 view) In Process Unspecified. EDMS 17:11 CBC with Diff Sent. jb4 17:11 CMP Sent. jb4 17:11 Lipase Sent. jb4 17:11 Magnesium Sent. jb4 17:45 EKG done, by ED staff, reviewed by Ronnie DUENAS. em1 18:00 Patient has correct armband on for positive identification. Bed in low position. Call jb4 light in reach. Side rails up X 1. Provided Education on: plan of care. 18:00 No provider procedures requiring assistance completed. jb4 18:09 CT Abd/Pelvis - IV Contrast Only In Process Unspecified. EDMS 19:09 Hansel Vickers, RN is Primary Nurse. jb4 20:05 Ralph Valadez, RN is Hospitalizing Provider. cp Administered Medications: 17:33 Drug: Famotidine IVP 20 mg IVP once; dilute with 10 mL 0.9% NaCl; give over 2 minutes jb4 Route: IVP; Site: left antecubital; 17:33 Drug: NS 0.9% IV 500 ml 500 ml IV at 1 bolus once; to be given as a bolus over 60 jb4 minutes Volume: 500 ml; Route: IV; Rate: 1 bolus; Site: left antecubital; 18:34 Follow up: Response: No adverse reaction; IV Status: Completed infusion; IV Intake: jb4 500ml 17:33 Drug: NS 0.9% IV 250 ml IV at bolus once; to be given as a bolus over 30 minutes Route: jb4 IV; Rate: bolus; Site: left antecubital; 18:00 Follow up: Response: No adverse reaction; IV Status: Completed infusion; IV Intake: jb4 250ml 17:34 Drug: Ondansetron IVP 4 mg IVP once; over 2 minutes Route: IVP; Site: left antecubital; jb4 19:22 Drug: metoCLOPramide IVP 10 mg IVP once; over 1 to 2 minutes Route: IVP; Site: left jb4 antecubital; 20:10 Follow up: Response: No adverse reaction; Marked relief of symptoms jb4 19:22 Drug: morphine IVP or IV 2 mg IVP once over 4 mins Route: IVP; Infused Over: 4 mins; jb4 Site: left antecubital; 20:10 Follow up: Response: No adverse reaction; Marked relief of symptoms jb4 20:31 Drug: Piperacillin-Tazobactam IVPB 3.375 grams IVPB once over 60 mins; (mix in NS 100 jb4 mL) Route: IVPB; Infused Over: 60 mins; Site: left antecubital; Medication: 18:00 VIS not applicable for this client. jb4 Intake: 18:00 IV: 250ml; Total: 250ml. jb4 18:34 IV: 500ml; Total: 750ml. jb4 Outcome: 20:05 Decision to Hospitalize by Provider. cp 22:56 Patient left the ED. rv1 Signatures: Dispatcher [employer] ED[facility] em1 Ronnie Ugarte PA-C PA-Constantino Hansel Vickers RN RN jb4 José Leung RN RN ll1 Sofia Hadley rv1 Kalen Hahn Jr, RN RN nh2 Samantha Griffin al6 Corrections: (The following items were deleted from the chart) 16:07 15:56 Chief complaint: Patient states: nausa and loss of appetite for the past 8 weeks, nh2 went to a GI doctor on Sunday and results showed gallstones on the [facility] [place] ll1 19:22 18:00 NS 0.9% IV 250 ml IV at bolus in left antecubital jb4 jb4
--- NOTE | 2024-10-10 20:06 | EDPHYS ---
Physician Documentation [facility] Name: Haylie Sherman Age: 79 yrs Sex: Female : 1945 Arrival Date: 10/10/2024 Time: 15:45 Bed 25 Private MD: ED Physician Ronnie Marshall HPI: 10/10 16:20 This 79 yrs old Female presents to ER via Ambulatory with complaints of Abdominal Pain, cp Vomiting. 16:20 The patient presents with abdominal pain in the upper abdomen. cp 16:20 Onset: The symptoms/episode began/occurred gradually, 2 month(s) ago, and became worse cp over past several days. 16:20 The symptoms radiate to back. Associated signs and symptoms: Pertinent positives: cp nausea and vomiting, anorexia, weight loss, Pertinent negatives: blood in stools, chest pain, constipation, diarrhea, dysuria, fever, active vomiting. The symptoms are described as waxing/waning. Modifying factors: the symptoms are aggravated by food. Historical: - Allergies: 16:07 Codeine; nh2 - Immunization history:: Adult Immunizations up to date. - Infectious Disease History:: Denies. - Social history:: Smoking status: Patient denies any tobacco usage or history of. ROS: 16:25 Constitutional: Positive for weight loss, Negative for body aches, chills, fever, cp 16:25 Eyes: Negative for injury, pain, redness, and discharge, cp 16:25 Neck: Negative for pain with movement, pain at rest, stiffness, 16:25 Cardiovascular: Negative for chest pain, 16:25 Respiratory: Negative for cough, shortness of breath, wheezing, 16:25 Abdomen/GI: Positive for abdominal pain, nausea and vomiting, anorexia, Negative for diarrhea, constipation, hematemesis, 16:25 Back: Positive for radiated pain, 16:25 Neuro: Negative for altered mental status, dizziness, headache, weakness, 16:25 All other systems are negative, Exam: 16:30 Constitutional: The patient appears in no acute distress, alert, awake, cp non-diaphoretic, non-toxic, well developed, well nourished, uncomfortable, 16:30 Head/Face: Normocephalic, atraumatic. cp 16:30 Eyes: Periorbital structures: appear normal, Conjunctiva: normal, no exudate, no injection, Sclera: no appreciated abnormality, Lids and lashes: appear normal, bilaterally, 16:30 ENT: External ear(s): are unremarkable, Nose: is normal, Mouth: Lips: moist, Oral mucosa: moist, Posterior pharynx: Airway: no evidence of obstruction, patent, 16:30 Chest/axilla: Inspection: normal, 16:30 Cardiovascular: Rate: normal, Rhythm: regular, 16:30 Respiratory: the patient does not display signs of respiratory distress, Respirations: normal, no use of accessory muscles, no retractions, labored breathing, is not present, Breath sounds: are clear throughout, no decreased breath sounds, no stridor, no wheezing, 16:30 Abdomen/GI: Inspection: abdomen appears normal, Bowel sounds: active, all quadrants, Palpation: soft, in all quadrants, moderate abdominal tenderness, in the epigastric area and right upper quadrant, rebound tenderness, is not appreciated, involuntary guarding, is not appreciated, 16:30 Back: CVA tenderness, is absent, 16:30 Skin: cellulitis, is not appreciated, no rash present. 16:30 Neuro: Orientation: to person, place \T\ time. Mentation: is normal, Motor: moves all fours, strength is normal, Sensation: is normal, 17:47 ECG was reviewed by the Attending Physician. Vital Signs: 16:05 BP 150 / 73; Pulse 71; Resp 18; Temp 97.9(TE); Pulse Ox 98% on R/A; nh2 16:08 BP 150 / 73; Pulse 71; Resp 18; Temp 97.8(TE); Pulse Ox 98% on R/A; Pain 0/10; nh2 16:15 Weight 55.79 kg; Height 5 ft. 2 in. ; jb4 17:15 BP 136 / 69; Pulse 65; Resp 16; Pulse Ox 97% on R/A; jb4 19:15 BP 131 / 66; Pulse 74; Resp 16; Pulse Ox 99% on R/A; jb4 20:15 BP 131 / 65; Pulse 73; Resp 16; Pulse Ox 97% on R/A; jb4 16:15 Body Mass Index 22.50 (55.79 kg, 157.48 cm) jb4 16:08 Pain Scale: Adult nh2 MDM: 16:01 Medical Screening Exam initiated dilia 20:10 Data reviewed: vital signs, nurses notes, lab test result(s), EKG, radiologic studies, cp CT scan, plain films, and as a result, I will admit patient. 20:10 I considered the following discharge prescriptions or medication management in the emergency department Medications were administered in the Emergency Department. See MAR. Independent interpretation of the following test(s) in the Emergency Department EKG: See my EKG interpretation above. 10/10 16:17 Order name: CBC with Diff; Complete Time: 17:22 cp 10/10 16:17 Order name: CMP; Complete Time: 19:29 cp 10/10 16:17 Order name: Lipase; Complete Time: 19:29 cp 10/10 16:17 Order name: Magnesium; Complete Time: 19:29 cp 10/10 16:17 Order name: UA Rfx Zhou Cult if indicated; Complete Time: 19:29 cp 10/10 17:50 Order name: Urine Culture EDMS 10/10 20:47 Order name: Lipase EDMS 10/10 20:48 Order name: Comprehensive Metabolic Panel EDFL 10/10 22:01 Order name: CBC with Automated Diff EDMS 10/10 22:01 Order name: CBC with Automated Diff EDMS 10/10 22:01 Order name: CBC with Automated Diff EDMS 10/10 22:01 Order name: CBC with Automated Diff EDMS 10/10 22:01 Order name: Comprehensive Metabolic Panel EDMS 10/10 22:01 Order name: Comprehensive Metabolic Panel EDMS 10/10 22:01 Order name: Comprehensive Metabolic Panel EDMS 10/10 22:01 Order name: Comprehensive Metabolic Panel EDMS 10/10 22:01 Order name: Magnesium EDMS 10/10 22:01 Order name: Magnesium EDMS 10/10 22:01 Order name: Magnesium EDMS 10/10 22:01 Order name: Magnesium EDMS 10/10 16:17 Order name: CT Abd/Pelvis - IV Contrast Only; Complete Time: 19:29 cp 10/10 19:41 Interpretation: Report reviewed. 10/10 16:17 Order name: XRAY Chest (1 view); Complete Time: 19:29 10/10 21:56 Order name: Dr Asim Philippe [facility] 10/10 16:17 Order name: IV Saline Lock; Complete Time: 17:11 10/10 16:17 Order name: Labs collected and sent; Complete Time: 17:11 cp 10/10 16:17 Order name: EKG - Nurse/Tech; Complete Time: 17:45 cp EC:47 Rate is 66 beats/min. Rhythm is regular. ME interval is prolonged at 220 msec. QRS cp interval is normal. QT interval is normal. Interpreted by me. Reviewed by me. Administered Medications: 17:33 Drug: Famotidine IVP 20 mg IVP once; dilute with 10 mL 0.9% NaCl; give over 2 minutes jb4 Route: IVP; Site: left antecubital; 17:33 Drug: NS 0.9% IV 500 ml 500 ml IV at 1 bolus once; to be given as a bolus over 60 jb4 minutes Volume: 500 ml; Route: IV; Rate: 1 bolus; Site: left antecubital; 18:34 Follow up: Response: No adverse reaction; IV Status: Completed infusion; IV Intake: jb4 500ml 17:33 Drug: NS 0.9% IV 250 ml IV at bolus once; to be given as a bolus over 30 minutes Route: jb4 IV; Rate: bolus; Site: left antecubital; 18:00 Follow up: Response: No adverse reaction; IV Status: Completed infusion; IV Intake: jb4 250ml 17:34 Drug: Ondansetron IVP 4 mg IVP once; over 2 minutes Route: IVP; Site: left antecubital; jb4 19:22 Drug: metoCLOPramide IVP 10 mg IVP once; over 1 to 2 minutes Route: IVP; Site: left jb4 antecubital; 20:10 Follow up: Response: No adverse reaction; Marked relief of symptoms jb4 19:22 Drug: morphine IVP or IV 2 mg IVP once over 4 mins Route: IVP; Infused Over: 4 mins; jb4 Site: left antecubital; 20:10 Follow up: Response: No adverse reaction; Marked relief of symptoms jb4 20:31 Drug: Piperacillin-Tazobactam IVPB 3.375 grams IVPB once over 60 mins; (mix in NS 100 jb4 mL) Route: IVPB; Infused Over: 60 mins; Site: left antecubital; Disposition Summary: 10/10/24 20:05 Hospitalization Ordered Notes: Hospitalization Status: Inpatient Admission cp Provider: Ralph Valadez cp Location: Telemetry/MedSurg (Inpatient) cp Condition: Stable cp Problem: new cp Symptoms: have improved cp Bed/Room Type: Standard cp Room Assignment: 230(10/10/24 21:58) kmf Diagnosis - Other cholelithiasis without obstruction cp - Nausea cp - UTI/ Urinary tract infection, site not specified cp - Hypokalemia cp Forms: - Medication Reconciliation Form cp - SBAR form cp - Leadership Thank You Letter cp Addendum: 10/14/2024 13:54 Co-signature as Attending Physician, Ronnie Marshall MD I agree with the assessment and c veronica plan of care. Signatures: Dispatcher [employer] EDFL Ronnie Marshall MD MD cha Page, Corey, PA-C PA-C Hansel Vasquez, RN RN jb4 Dorcas Chapa [facility] Kalen Hahn Jr RN RN nh2 Corrections: (The following items were deleted from the chart) 10/10 21:58 20:05 cp kmf
[2024-10-10] MEDS ORDERED: NA CHLORIDE 0.9% 100 ML ONE (20:20)
[2024-10-10] MEDS ORDERED: PIPERACIL/TAZO 3.375 GM VIAL IV ONE (20:20)
[2024-10-10] MEDS ORDERED: MORPHINE 4 MG/ML SYR IV PRN (21:53)
--- NOTE | 2024-10-10 21:56 | P.HP ---
Certification for Inpatient Patient admitted to: Inpatient With expected LOS: >2 Midnights Patient will require the following post-hospital care: None Practitioner: I am a practitioner with admitting privileges, knowledge of patient current condition, hospital course, and medical plan of care. Services: Services provided to patient in accordance with Admission requirements found in Title 42 Section 412.3 of the Code of Federal Regulations Patient History Date of Service: 10/10/24 Reason for admission: Acute cholecystitis. History of Present Illness: Patient is a pleasant 79-year-old female with past medical history of GERD, hypercholesteremia, essential hypertension, who presents to the ER today complaining of severe right upper quadrant pain, associated with nausea but no vomiting. Patient states she has been having right upper quadrant abdominal pain for the past 6 weeks, states she has lost 12 pounds within 8 weeks because she has not been able to eat adequately due to severe nausea and abdominal pain. Patient states on Sunday this week she went to see her GI doctor, states ultrasound was ordered and she completed the ultrasound exam, states she received a call today from her GI doctor and was told that she has gallstones and requested for her to schedule an appointment for surgery. Patient states she could not wait until the surgery date because she started having severe abdominal pain today which she describes as 10/10, and more profound associated with nausea which then prompted her to report to the ER. Patient denies having associated chest pain or shortness of breath. Patient had CT abdomen and pelvis done in ER with impression of cholelithiasis with borderline gallbladder wall thickening, and Minimal sigmoid diverticulitis. According to report received from ER practitioner, states he consulted with Dr. Philippe, who requested for repeat lipase and LFTs in the morning, n.p.o. after midnight for surgery in a.m.. During admission assessment, patient with positive rebound tenderness right upper quadrant, and guarding. Patient in no acute distress at this time. Allergies codeine Adverse Reaction (Verified 10/10/24 23:00) nausea Home medications list reviewed: No Home Medications: Omeprazole 20 mg PO DAILY 11/06/16 atenoloL [Tenormin] 50 mg PO DAILY 11/06/16 Amlodipine Besylate 5 mg PO DAILY 07/31/24 Atorvastatin Calcium [Lipitor] 80 mg PO BEDTIME 07/31/24 Losartan Potassium 100 mg PO DAILY 07/31/24 hydroCHLOROthiazide [Hydrochlorothiazide] 25 mg PO DAILY 07/31/24 Aspirin [Aspirin EC 325 MG] 325 mg PO BID 10/10/24 - Past Medical/Surgical History Diabetic: No -: blood pressure -: cholesterol -: GERD -: Mitral valve prolapse. -: torn meniscus -: uterus lift -: Right knee replacement. - Family History Mother -: Heart disease Father -: Heart disease Brother -: Cancer (Colon cancer.) Sister -: Cancer (Sister cancer.) - Social History Smoking Status: Never smoker Alcohol use: No CD- Drugs: No Caffeine use: No Place of Residence: Home Review of Systems 10-point ROS is otherwise unremarkable Gastrointestinal: Nausea, Abdominal Pain Physical Examination - Physical Exam General: Alert, In no apparent distress, Oriented x3 HEENT: Atraumatic, Normocephalic, PERRLA, Mucous membr. moist/pink, Sclerae nonicteric Neck: Supple, 2+ carotid pulse no bruit, No LAD, Without JVD or thyroid abnormality Respiratory: Clear to auscultation bilaterally, Normal air movement Cardiovascular: No edema, Normal pulses, Regular rate/rhythm, Normal S1 S2, Abnormal S3, No gallops, No rubs, No murmurs Capillary refill: <2 Seconds Gastrointestinal: Normal bowel sounds, W/out hepatomegaly, No ascites, No masses, Rebound, Guarding Musculoskeletal: No clubbing, No swelling, No contractures, No erythema, No tenderness, No warmth Integumentary: No rashes, No breakdown, No significant lesion, No tendernes s/swelling, No erythema, No warmth, No cyanosis Neurological: Normal gait, Normal speech, Normal strength at 5/5 x4 extr, Normal tone, Sensation intact, Cranial nerves 3-12 intact, Normal reflexes 2+, Normal affect Lymphatics: No axilla or inguinal lymphadenopathy - Studies Laboratory Data (last 24 hrs) 10/10/24 10/10/24 17:07 17:07 WBC 6.70 Hgb 11.6 L Hct 32.4 L Plt Count 199 Sodium 129 L Potassium 2.9 L BUN 14 Creatinine 0.59 Glucose 113 H Magnesium 1.9 Total Bilirubin 0.4 AST 22 ALT 23 Alkaline Phosphatase 92 Lipase 136 H Female Exam - Breasts Breasts: Normal configuration Assessment and Plan - Plan Patient is a 79-year-old female admitted with acute cholecystitis. Patient is n.p.o. after midnight scheduled for surgery in a.m. by Dr. Philippe. (1)Acute cholecystitis. -NPO after midnight. -Morphine 4 mg IV as needed Q 6 hours. -Zosyn 3.375 mg IV every 8 hours. -IV D5 1/2 NS +20 mEq at 75 mL/ hr. -Order for repeat lipase and LFTs as requested by Dr. Philippe. (2)Chronic hypercholesterolemia. -Continue home medication atorvastatin 40 mg p.o. daily. (3)Chronic GERD. -Continue home medication omeprazole 40 mg p.o. daily. (4)Chronic essential hypertension. -Continue home medication atenolol 50 mg p.o. daily. -To resume complete list of medications after is reconciled. (5)Explained the entire treatment plan to the patient, and daughter present at the bedside, solicit questions answered and voiced understanding. Discharge Plan: Home Plan to discharge in: 72 Hours - Advance Directives Does patient have a Living Will: No Does patient have a Durable POA for Healthcare: No - Code Status/Comfort Care Code Status Assessed: No Code Status: Full Code Critical Care: No Time Spent Managing Pts Care (In Minutes): 55
[2024-10-10] MEDS: D5.45NS W/KCL 20MEQ 1,000 ML IV SCH (23:12)
[2024-10-11] MEDS: ZOLPIDEM TARTRATE 5 MG TABLET PO ONE ×3 (00:30→21:30)
[2024-10-11] MEDS: PIPER TAZO 3.375 GM in NA CHLORIDE 0.9% 100 ML IV SCH (00:44)
[2024-10-11 02:34] VITALS: BMI 22.4
[2024-10-11 05:42] LABS: Absolute Lymphocytes (CBC) 1.4 K/uL (0.7-4.9); Hematocrit 30.8 % (36.0-45.0); Hemoglobin 11.0 g/dL (12.0-15.0); MCH 29.4 pg (27.0-35.0); MCHC 35.7 g/dL (32.0-36.0); MCV 82.4 fL (80-100); MPV 7.6 fL (7.6-11.3); Nucleated RBC Absolute Count 0.0 (0-0); Nucleated Red Blood Cells % 0.0 % (0-0); RBC Red Blood Cell Count 3.74 M/uL (3.86-4.86); White Blood Count 5.90 thou/uL (4.3-10.9)
[2024-10-11 06:14] LABS: ALT/SGPT 18.0 U/L (13-56); AST/SGOT 16.0 U/L (15-37); Albumin 3.1 g/dL (3.4-5.0); Albumin/Globulin Ratio 1.0 (1.1-1.8); Alkaline Phosphatase 81.0 U/L (45-117); Anion Gap 10.3 mEq/L (5.0-15.0); BUN Blood Urea Nitrogen 11.0 mg/dL (7-18); Globulin 3.0 g/dL (2.3-3.5); Glucose Level 117.0 mg/dL (74-106); Magnesium 1.8 mg/dL (1.6-2.4); Potassium 3.3 mEq/L (3.5-5.1)
[2024-10-11 06:18] LABS: ALT/SGPT 18.0 U/L (13-56); AST/SGOT 14.0 U/L (15-37); Albumin 3.1 g/dL (3.4-5.0); Albumin/Globulin Ratio 1.0 (1.1-1.8); Alkaline Phosphatase 86.0 U/L (45-117); Anion Gap 9.2 mEq/L (5.0-15.0); BUN Blood Urea Nitrogen 11.0 mg/dL (7-18); Globulin 3.0 g/dL (2.3-3.5); Glucose Level 118.0 mg/dL (74-106); Lipase 28.0 U/L (13-75); Potassium 3.2 mEq/L (3.5-5.1)
[2024-10-11] MEDS: PANTOPRAZOLE 40MG TABLET PO SCH (06:30)
--- NOTE | 2024-10-11 07:20 | P.PN ---
Date of Service: 10/11/24 Subjective: seen post-op slight nausea, but wanting ice chips mild soreness as well otherwise doing well Physical Exam: GEN: Alert, oriented, NAD CV: Regular rate and rhythm, no edema Pulm: Nonlabored respirations on room air ABD: soft, RUQ tenderness Neuro: Normal speech, normal affect Problem List: Acute cholecystitis Acute Sigmoid diverticulitis, mild Hyponatremia, Hypokalemia GERD Hypertension Hyperlipidemia On admission, presents with worsening RUQ pain associated with nausea. Ongoing intermittently for ~2 months. Had abdominal u/s with GI this past week which showed multiple gallstones and was advised to get scheduled for surgery Was planning on outpatient surgery but pain and nausea worsened so she came to ER. CT abd/pelvis (10/10): Multiple gallstones with borderline gallbladder wall thickening. Minimal sigmoid diverticulitis. Moderate stool burden. Dr. Philippe, general surgeon consulted underwent lap rody a few hours ago denies any LLQ pain, does have some chronic constipation, sees Dr. Negron every 3-5 years, gets regular C-scopes. IV Zosyn for now (10/10-) pain control, antiemetics PO protonix daily IVF CLD Monitor and replete electrolytes as needed LFTs okay, Lipase mildly elevated on admission now resolved. confirm home meds, restart as appropriate VTE: SCD Code: Full Dispo: Home, ~1 day Time Spent Managing Pts Care (In Minutes): 55
[2024-10-11] MEDS ORDERED: MIDAZOLAM HCL 2 MG/2 ML INJ ONE (10:49)
[2024-10-11] MEDS ORDERED: LIDOCAINE 2% MPF 5 ML VIAL ONE (10:49)
[2024-10-11] MEDS ORDERED: ROCURONIUM 50 MG/5 ML VIAL IV ONE (10:49)
[2024-10-11] MEDS ORDERED: ONDANSETRON 4 MG/2 ML VIAL ONE (10:49)
[2024-10-11] MEDS ORDERED: FENTANYL CITR 100 MCG/2 ML ONE (10:49)
[2024-10-11] MEDS: Ringers Lactate 1,000 ML IV ONE (10:50)
--- NOTE | 2024-10-11 10:52 | CON ---
Date of Consultation: 10/11/2024 Diagnoses: Epigastric right upper quadrant pain, acute cholecystitis, symptomatic cholelithiasis, an d colitis. History Of Present Illness: This is the case of a 79-year-old patient having abdominal pain for david ral weeks, but the last night was the worse. She even saw her primary doctor, her intern product marketing manager , recently had an ultrasound done, found to have gallstones, sent to the surgeons for cholecystectomy , but she did not make it to the surgeon's office. She has to come to the ER due to severe pain. Du ring the workup, the patient was found to have acute cholecystitis, pancreatitis, and also sigmoid co litis. How to attach all those together, the colitis and the gallbladder is semester at this moment, but we will work on that. She has been having decreased appetite for the last 8 weeks. She was exp lained the importance that even if this get better, to follow with her intern product marketing manager for further workup of weight loss. She denies any dysuria, hematuria, hematochezia, melena. Denies any recent traveling out of the country. Denies any family member sick at home. Denies any shortness of breath . No chest pain. Review of Systems: Ten points otherwise unremarkable. Allergies: CODEINE. Medications: Omeprazole, Tenormin, Lipitor, losartan, aspirin, and hydrochlorothiazide. Past Medical History: Blood pressure, cholesterol, mitral valve prolapse. Past Surgical History: Include right knee replacement, uterus lift. Family History: Mother with heart disease. Social History: She does not smoke. She does not drink alcohol. Physical Examination: Vital Signs: Temperature is 98, pulse 68, blood pressure 138/59, O2 saturation 96%. General: The patient is awake, alert. HEENT: Pupils are equal and reactive. Anicteric. Neck: Supple. Chest: Clear. Heart: S1, S2. Abdomen: Epigastric right upper quadrant tenderness with Oropeza sign positive. I do not feel any pa in right now on the left lower quadrant, where the CAT scan suggests also mild diverticulitis, althou gh that is just clinical. Pelvis: Deferred. Rectal: Deferred. Breasts: Deferred. Extremities: Good capillary refill. Laboratory Data: Blood work shows WBC count of 6.7, hemoglobin of 11.6, and platelets of 199. Sodiu m 135, potassium 3.3, creatinine is 0.84, total bilirubin of 0.3, alkaline phosphatase 81, she did co me initially with lipase of 136, but then today is 28. CAT scan of the abdomen and pelvis interprete d by Dr. Wilkinson as multiple gallstones, gallbladder wall thickening present, then mild stranding of the area of the sigmoid colon. Assessment: Acute cholecystitis, symptomatic cholelithiasis. At the same time, even though she has no pain over the sigmoid area, there are some findings on the CAT scan that suggests diverticulitis, although with history of weight loss in the last 2 months, I believe she should consult that with the intern product marketing manager for possible colonoscopy once this acute episode is over. The benefits, alternat sarmad, and risks of laparoscopic possible open cholecystectomy fully explained, which include, but not limited to infection, bleeding, damage to adjacent structures, anesthesia complication, choledocholi thiasis, bile leak, pancreatitis, WI, and even . She also understands this may not relieve symp toms. She might need more than one surgical intervention. She understood and she will sign a consent. She wants to have surge ry done during this admission. NIKKO/FAWN Voice ID: [id number] Report ID: [id number]
[2024-10-11] MEDS ORDERED: EPHEDRINE SULF 50 MG/ML VIAL ONE (11:55)
[2024-10-11] MEDS: SUGAMMADEX SODIUM 200 MG/2 ML VIAL IV ONE (12:17)
--- NOTE | 2024-10-11 12:37 | P.BOP ---
Preoperative diagnosis: acute cholecystitis, symptomatic cholelithiasis Postoperative diagnosis: same Primary procedure: Laparoscopic cholecystectomy Estimated blood loss: <10cc Specimen: gb Findings: as above Anesthesia: General Complications: None Transferred to: Recovery Room Condition: Good
[2024-10-11] MEDS: HYDROMORPHONE HCL 1 MG/ML INJ ONE (12:54)
--- NOTE | 2024-10-11 13:07 | OP ---
Date of Procedure: 10/11/2024 Surgeon: Colton Philippe MD Preoperative Diagnoses: Acute cholecystitis and colitis. Postoperative Diagnoses: Acute cholecystitis and colitis. Procedure: Laparoscopic cholecystectomy. Anesthesia: General plus local. Complications: None. Estimated Blood Loss: Less than 10 cc. Indications: This is the case of a 79-year-old patient diagnosed as above. Fully explained the bene fits, alternatives, and risks of laparoscopic possible open cholecystectomy, which include, but not l imited to infection, bleeding, damage to adjacent structures, anesthesia complication, choledocholith iasis, bile leak, pancreatitis, ID, and even . She also understands this may not relieve sympto ms. She might need more than one surgical intervention. She understood, signed a consent. Description Of Procedure: The patient was brought to the operating room and placed in supine positio n. Anesthesia was done without complication. Abdominal area was prepped and draped in a sterile fas hion. Marcaine 0.5% was injected for local anesthetic followed by sharp incision of the skin in the infraumbilical region. Incision was carried down to fascia, which was opened under direct vision. P eritoneum was encountered and opened under direct vision. Vicryl #1 was placed inside the fascia. H asson trocar was carefully introduced. Pneumoperitoneum was obtained. I placed 3 more trocars, 5 mm each one of them, 1 in the epigastric area, 2 in the right upper quadrant using same technique, whic h consisted of local anesthetic, sharp incision of the skin, and introduction of the trocars under di rect vision. This allowed me to put a grasper in the fundus of the gallbladder, another grasper in t he infundibulum, retracted the gallbladder in the inferolateral fashion exposing the triangle of Tom t, obtaining critical view. Cystic duct and cystic artery were clearly isolated and freed circumfere ntially, and a connection between those and the gallbladder were clearly identified. I proceeded to ligate those by using at least 3 clips proximal, 1 clip distal, ligation in middle. Same was done wi th the cystic artery. No bile leak. No bleeding. A small little branch of the cystic artery was al so ligated. We protected the hepatic arteries and common bile duct at all time. Gallbladder was rem makenzie from liver using Bovie cauterizer and removed from abdominal cavity using EndoCatch through the umbilical incision. The area was inspected once again. No bile leak. No bleeding. At that moment, I proceeded to remove the trocars under direct vision. Deflated the pneumoperitoneum. Closed the f ascia with #1 Vicryl. Irrigated subcutaneous tissue, closed that with 3-0 chromic, and skin with sta ples. Sponge count and instrument counts correct. The patient tolerated the procedure well. The pa tient was on her way to recovery in stable condition. NIKKO/FAWN Voice ID: [id number] Report ID: [id number]
[2024-10-11 13:12] VITALS: O2SAT 99
[2024-10-11] MEDS: ONDANSETRON 4 MG/2 ML VIAL IV PRN (15:21)
[2024-10-11] MEDS ORDERED: MORPHINE 2 MG/ML SYR IV PRN (16:23)
[2024-10-11] MEDS: HYDROCODONE/APAP 5/325 MG TAB PO PRN (16:50)
[2024-10-12] MEDS ORDERED: FLEET ENEMA ADULT PR PRN (05:03)
[2024-10-12 06:04] LABS: Absolute Lymphocytes (CBC) 1.0 K/uL (0.7-4.9); Hematocrit 28.0 % (36.0-45.0); Hemoglobin 9.9 g/dL (12.0-15.0); MCH 29.6 pg (27.0-35.0); MCHC 35.3 g/dL (32.0-36.0); MCV 83.8 fL (80-100); MPV 7.4 fL (7.6-11.3); Nucleated RBC Absolute Count 0.0 (0-0); Nucleated Red Blood Cells % 0.0 % (0-0); RBC Red Blood Cell Count 3.34 M/uL (3.86-4.86); White Blood Count 6.00 thou/uL (4.3-10.9)
[2024-10-12 06:32] LABS: ALT/SGPT 65.0 U/L (13-56); AST/SGOT 64.0 U/L (15-37); Albumin 2.7 g/dL (3.4-5.0); Albumin/Globulin Ratio 1.0 (1.1-1.8); Alkaline Phosphatase 114.0 U/L (45-117); Anion Gap 10.4 mEq/L (5.0-15.0); BUN Blood Urea Nitrogen 10.0 mg/dL (7-18); Globulin 2.8 g/dL (2.3-3.5); Glucose Level 129.0 mg/dL (74-106); Magnesium 1.7 mg/dL (1.6-2.4); Potassium 3.4 mEq/L (3.5-5.1)
[2024-10-12] MEDS: PIPERACIL/TAZO 3.375 GM VIAL IV ONE (08:49)
[2024-10-12] MEDS: POTASSIUM CL SA 10 MEQ TAB PO ONE (08:53)
[2024-10-12] MEDS: DOCUSATE NA 100 MG CAP PO SCH (08:53)
--- NOTE | 2024-10-12 11:52 | P.DS ---
Admission Date: 10/10/24 Discharge Date: 10/12/24 Reason for Admission: Acute cholecystitis. Consultations: General surgery - Dr. Philippe Brief History of Present Illness: 79yo F, PMH: GERD, hypercholesteremia, essential hypertension, Patient presents to the ER today complaining of severe right upper quadrant pain, associated with nausea but no vomiting. Patient states she has been having right upper quadrant abdominal pain for the past 6 weeks, states she has lost 12 pounds within 8 weeks because she has not been able to eat adequately due to severe nausea and abdominal pain. Patient states on Sunday this week she went to see her GI doctor, states ultrasound was ordered and she completed the ultrasound exam, states she received a call today from her GI doctor and was told that she has gallstones and requested for her to schedule an appointment for surgery. Patient states she could not wait until the surgery date because she started having severe abdominal pain today which she describes as 10/10, and more profound associated with nausea which then prompted her to report to the ER. Patient denies having associated chest pain or shortness of breath. Patient had CT abdomen and pelvis done in ER with impression of cholelithiasis with borderline gallbladder wall thickening, and Minimal sigmoid diverticulitis. According to report received from ER practitioner, states he consulted with Dr. Philippe, who requested for repeat lipase and LFTs in the morning, n.p.o. after midnight for surgery in a.m.. During admission assessment, patient with positive rebound tenderness right upper quadrant, and guarding. Patient in no acute distress at this time. Hospital Course: Problem List: Acute cholecystitis, s/p lap rody (10/11) Chronic constipation Hyponatremia, Hypokalemia; improving GERD Hypertension Hyperlipidemia Physician discharge instructions: Patient presented with worsening RUQ pain associated with nausea secondary to acute cholecystitis. CT abdomen/pelvis on admission noted multiple gallstones with borderline gallbladder wall thickening. CT also noted minimal sigmoid diverticulitis and moderate stool burden. She was noted to have a mildly elevated lipase on admission (136) associated with some mild electrolyte abnormalities otherwise the rest of her labs were unremarkable. LFTs were normal on admission. Patient was evaluated by Dr. Philippe (general surgeon) and underwent lap cholecystectomy on 10/11. Her lipase and electrolytes quickly improved with IV hydration. Patient was feeling better, abdominal pain improved, nausea resolved and was deemed stable for discharge. She has been tolerating diet and ambulating without issues on day of discharge. Patient received IV zosyn while hospitalized and is to complete 7 more days of oral augmentin to cover possible infection. Recommend following up with Dr. Philippe in his office in 1 week for further management. ALT/AST were noted to be very mildly elevated on day of discharge which is secondary to inflammation from surgery. Repeat blood work in ~1 week with PCP to ensure resolution of LFTs. No heavy lifting > 10 lbs for 4-6 weeks unless otherwise instructed by Dr. Philippe at follow up appointment Do no submerge wound underwater. Medications: Augmentin x1 week [place] 15 pills as needed for pain Okay to take over the counter stool softener Follow up: PCP 3-[address] Philippe ([phone]) in his office in 1 week Please call to schedule / confirm appointments Physical Exam: GEN: Alert, oriented, NAD CV: Regular rate and rhythm, no edema Pulm: Nonlabored respirations on room air ABD: soft, clean surgical dressing in place Neuro: Normal speech, normal affect Vital Signs/Physical Exam: Temp Pulse Resp BP Pulse Ox 98 F 80 16 158/72 H 92 10/12/24 08:00 10/12/24 08:00 10/12/24 08:00 10/12/24 08:00 10/12/24 08:00 Laboratory Data at Discharge: WBC 6.00 thou/uL (4.3-10.9) 10/12/24 05:21 Hgb 9.9 g/dL (12.0-15.0) L D 10/12/24 05:21 Hct 28.0 % (36.0-45.0) L 10/12/24 05:21 Plt Count 152 thou/uL (152-406) 10/12/24 05:21 Sodium 138 mEq/L (136-145) 10/12/24 05:21 Potassium 3.4 mEq/L (3.5-5.1) L 10/12/24 05:21 BUN 10 mg/dL (7-18) 10/12/24 05:21 Creatinine 0.67 mg/dL (0.55-1.02) 10/12/24 05:21 Glucose 129 mg/dL (74-106) H 10/12/24 05:21 Magnesium 1.7 mg/dL (1.6-2.4) 10/12/24 05:21 Total Bilirubin 0.4 mg/dL (0.2-1.0) 10/12/24 05:21 AST 64 U/L (15-37) H 10/12/24 05:21 ALT 65 U/L (13-56) H 10/12/24 05:21 Alkaline Phosphatase 114 U/L (45-117) D 10/12/24 05:21 Lipase 28 U/L (13-75) 10/11/24 04:59 Home Medications: Omeprazole 20 mg PO DAILY 11/06/16 atenoloL [Tenormin*] 50 mg PO DAILY 11/06/16 Amlodipine Besylate 5 mg PO DAILY 07/31/24 Atorvastatin Calcium [Lipitor] 80 mg PO BEDTIME 07/31/24 Losartan Potassium 100 mg PO DAILY 07/31/24 hydroCHLOROthiazide [Hydrochlorothiazide] 25 mg PO DAILY 07/31/24 Aspirin [Aspirin EC 325 MG] 325 mg PO BID 10/10/24 Amox/Clavulanate [Augmentin 875-125 Tab] 1 tab PO BID 7 Days #14 tab 10/12/24 Hydrocodone 5/APAP 325 [[place] 5/325*] 1 tab PO Q8H PRN 5 Days #15 tab 10/12/24 New Medications: Amox/Clavulanate [Augmentin 875-125 Tab] 1 tab PO BID 7 Days #14 tab Hydrocodone 5/APAP 325 [[place] 5/325*] 1 tab PO Q8H PRN 5 Days #15 tab PRN Reason: Pain Scale 5-7 (Moderate) Physician Discharge Instructions: Physician discharge instructions: Patient presented with worsening RUQ pain associated with nausea secondary to acute cholecystitis. CT abdomen/pelvis on admission noted multiple gallstones with borderline gallbladder wall thickening. CT also noted minimal sigmoid diverticulitis and moderate stool burden. She was noted to have a mildly elevated lipase on admission (136) associated with some mild electrolyte abnormalities otherwise the rest of her labs were unremarkable. LFTs were normal on admission. Patient was evaluated by Dr. Philippe (general surgeon) and underwent lap cholecystectomy on 10/11. Her lipase and electrolytes quickly improved with IV hydration. Patient was feeling better, abdominal pain improved, nausea resolved and was deemed stable for discharge. She has been tolerating diet and ambulating without issues on day of discharge. Patient received IV zosyn while hospitalized and is to complete 7 more days of oral augmentin to cover possible infection. Recommend following up with Dr. Philippe in his office in 1 week for further management. ALT/AST were noted to be very mildly elevated on day of discharge which is secondary to inflammation from surgery. Repeat blood work in ~1 week with PCP to ensure resolution of LFTs. No heavy lifting > 10 lbs for 4-6 weeks unless otherwise instructed by Dr. Philippe at follow up appointment Do no submerge wound underwater. Medications: Augmentin x1 week [place] 15 pills as needed for pain Okay to take over the counter stool softener Follow up: PCP 3-[address] Philippe ([phone]) in his office in 1 week Please call to schedule / confirm appointments Followup: Buck Stratton MD [Primary Care Provider] - Time spent managing pt's care (in minutes): 45
[2024-10-12 12:17] VITALS: BP 170/72; TEMP 98
== END 2024-10-12 12:55 | disposition home or self-care (01) | DRG 418 ==
LOC: ER 15:45 → ERHOLD 21:50 → 2ND 22:33
PROVIDERS: ADMIT Hospitalist; ATTEND Hospitalist
PROC: 0FT44ZZ Resection of Gallbladder, Percutaneous Endoscopic Approach (ICD-10-PCS; principal; 2024-10-11 12:00)
DX: K80.00 Calculus of gallbladder with acute cholecystitis without obstruction (principal); E87.1 Hypo-osmolality and hyponatremia; K57.32 Diverticulitis of large intestine without perforation or abscess without bleeding; N39.0 Urinary tract infection, site not specified; E87.6 Hypokalemia; K59.09 Other constipation; I10 Essential (primary) hypertension; K52.9 Noninfective gastroenteritis and colitis, unspecified; E78.00 Pure hypercholesterolemia, unspecified; K21.9 Gastro-esophageal reflux disease without esophagitis; Z88.5 Allergy status to narcotic agent; Z79.82 Long term (current) use of aspirin; Z79.899 Other long term (current) drug therapy; Z96.651 Presence of right artificial knee joint
CPT/HCPCS: 36415; 71045; 74177; 80053; 81001; 83690; 83735; 85025; 87077; 87086; 87088; 87186; 88304; 93005; 94010; 96361; 96374; 96375; 99284; J1171; J2003; J2250; J2270; J2405; J2543; J2704; J2765; J3010; J7030; J7120; Q9967

== ENCOUNTER 2024-10-21 16:49 | Emergency (ER) | payer OTHER ==
[2024-10-21] MEDS ORDERED: NA CHLORIDE 0.9% 500 ML ONE (17:26)
[2024-10-21] MEDS ORDERED: ONDANSETRON 4 MG/2 ML VIAL ONE (17:26)
[2024-10-21 17:40] LABS: Absolute Lymphocytes (CBC) 1.7 K/uL (0.7-4.9); Hematocrit 36.7 % (36.0-45.0); Hemoglobin 13.0 g/dL (12.0-15.0); MCH 29.1 pg (27.0-35.0); MCHC 35.3 g/dL (32.0-36.0); MCV 82.4 fL (80-100); MPV 7.4 fL (7.6-11.3); Nucleated RBC Absolute Count 0.0 (0-0); Nucleated Red Blood Cells % 0.1 % (0-0); RBC Red Blood Cell Count 4.46 M/uL (3.86-4.86); White Blood Count 10.20 thou/uL (4.3-10.9)
[2024-10-21 17:42] LABS: Urine Microscopic Reflex YN NO UMIC
[2024-10-21 17:58] LABS: ALT/SGPT 25.0 U/L (13-56); AST/SGOT 19.0 U/L (15-37); Albumin 3.6 g/dL (3.4-5.0); Albumin/Globulin Ratio 0.9 (1.1-1.8); Alkaline Phosphatase 120.0 U/L (45-117); Anion Gap 9.9 mEq/L (5.0-15.0); BUN Blood Urea Nitrogen 15.0 mg/dL (7-18); Globulin 3.8 g/dL (2.3-3.5); Glucose Level 126.0 mg/dL (74-106); Lipase 31.0 U/L (13-75); Potassium 2.9 mEq/L (3.5-5.1)
--- NOTE | 2024-10-21 18:52 | RAD REPORT ---
EXAMINATION: CT ABDOMEN AND PELVIS WITH CONTRAST CLINICAL INDICATION: Abdominal pain TECHNIQUE: CT abdomen and pelvis was performed, after the administration of 100 cc Isovue-300.. Sagit raquel and coronal reconstructions were obtained. One or more of the following dose reduction techniques were used: Automated exposure control, adjustment of the mA and kV according to patient si ze, and iterative reconstruction. Unless otherwise specified, incidental findings do not require dedicated imaging follow-up. [id number]. Oral contrast was not given which limits evaluation of bowel and appendix. COMPARISON: .October 10, 2024 FINDINGS: Cholecystectomy. No fluid within the gallbladder fossa. Liver, spleen, pancreas, adrenals and left kidney appear unremarkable. 3 cm right renal cyst. No adnexal mass. Moderate amount stool throughout the colon. Mild thickening of the wall of the sigmoid colon. Diverticula stem from colon. : IMPRESSION: Moderate amount stool throughout the colon. Mild thickening of the wall of the sigmoid colon could be muscular hypertrophy secondary to diverticu losis. A mild colitis is another consideration. Cholecystectomy without fluid in the gallbladder fossa
--- NOTE | 2024-10-21 19:06 | EDPHYS ---
Physician Documentation [facility] Name: Haylie Sherman Age: 79 yrs Sex: Female : 1945 Arrival Date: 10/21/2024 Time: 16:49 Bed 14 Private MD: ED Physician Theo Bernabe HPI: 10/21 16:56 This 79 yrs old Female presents to ER via Unassigned with complaints of Abdominal Pain, kb Nausea. 16:56 Pt is a 79 year old female who presents for nausea, abd pain that started initially in kb July. States she was seen here, had gallbladder removed 2 weeks ago, but pain continues. States she was seen by Dr Philippe yesterday to have the peterson removed and told him about the pain so she had an xray done. States she hasn't been able to get in touch with anyone at the office so she came here. Concerned about bowel obstruction due to inability to have a BM since surgery. sTates she has been passing gas. States she hasn't been able to eat either so that could be the reason she hasn't had a BM. Denies fever. . Historical: - Allergies: 17:11 Codeine; jl7 - PMHx: 17:11 Hypertensive disorder; Hypercholesterolemia; jl7 - PSHx: 17:11 Cholecystectomy; jl7 - Immunization history:: Adult Immunizations unknown. - Infectious Disease History:: Denies. - Social history:: Smoking status: Patient denies any tobacco usage or history of. ROS: 16:56 Constitutional: As per HPI kb Exam: 16:56 Constitutional: This is a well developed, well nourished patient who is awake, alert, kb and in no acute distress. Head/Face: Normocephalic, atraumatic. ENT: Moist Mucous membranes Cardiovascular: Regular rate Respiratory: Respirations even and unlabored. No increased work of breathing. Talking in full sentences Skin: Warm, dry with normal turgor. Normal color. MS/ Extremity: Pulses equal, no cyanosis. Neurovascular intact. Full, normal range of motion. Neuro: Awake and alert, GCS 15, oriented to person, place, time, and situation. 16:56 Abdomen/GI: Inspection: abdomen appears normal, Bowel sounds: normal, Palpation: soft, in all quadrants, 17:57 ECG was reviewed by the Attending Physician. kb Vital Signs: 17:09 BP 140 / 68; Pulse 63; Resp 17; Temp 97; Pulse Ox 100% ; jl7 17:30 BP 143 / 68; Pulse 59; Resp 18; Pulse Ox 100% on R/A; af3 19:28 BP 145 / 73; Pulse 70; Resp 18 S; Temp 97.7(O); Pulse Ox 97% on R/A; kt5 MDM: 16:55 Medical Screening Exam initiated kb 19:03 Differential diagnosis: bowel obstruction, diverticulitis, non-specific abd pain, kb constipation. Data reviewed: vital signs, nurses notes. Consideration of Admission/Observation Escalation of care including admission/observation considered. admission considered but pt is nontoxic in appearance, vss, pt tolerating po intake, pain has been ongoing for 2 months. Pt will follow up with Dr Negron as planned. I considered the following discharge prescriptions or medication management in the emergency department I discussed and recommended Over The Counter medications, Antibiotics: At this time antibiotics are not recommended, pt has ODT zofran at home . Counseling: I had a detailed discussion with the patient and/or guardian regarding the historical points, exam findings, and any diagnostic results supporting the discharge/admit diagnosis, lab results, radiology results, the need for outpatient follow up, a family practitioner, a associate professor of philosophy, to return to the emergency department if symptoms worsen or persist or if there are any questions or concerns that arise at home. 10/21 17:01 Order name: CBC with Diff; Complete Time: 17:46 kb 10/21 17:01 Order name: CMP; Complete Time: 18:07 kb 10/21 17:01 Order name: Lipase; Complete Time: 18:07 kb 10/21 17:01 Order name: UA Rfx Zhou Cult if indicated; Complete Time: 17:46 kb 10/21 17:01 Order name: CT Abd/Pelvis - IV Contrast Only; Complete Time: 18:55 kb 10/21 17:01 Order name: EKG; Complete Time: 17:02 kb 10/21 17:01 Order name: IV Saline Lock; Complete Time: 17:45 kb 10/21 17:01 Order name: Labs collected and sent; Complete Time: 17:45 kb 10/21 17:01 Order name: EKG - Nurse/Tech; Complete Time: 17:42 kb EC:57 Rate is 59 beats/min. Rhythm is regular. QRS [place] is Normal. DE interval is prolonged kb at 210 msec. QRS interval is normal at 90 msec. QT interval is normal at 451 msec. Administered Medications: 17:42 Drug: NS 0.9% IV 500 ml 500 ml IV at 1 bolus once; to be given as a bolus over 30 af3 minutes Volume: 500 ml; Route: IV; Rate: 1 bolus; Site: right antecubital; 19:25 Follow up: Response: No adverse reaction; IV Status: Completed infusion; IV Intake: kt5 500ml 17:43 CANCELLED (Other Intervention Used): Ondansetron Oral Disintegrating Tablet 4 mg PO onceaf3 17:45 Drug: Ondansetron IVP 4 mg IVP once; over 2 minutes Route: IVP; Site: right antecubital;af3 19:26 Follow up: Response: No adverse reaction; Nausea is decreased kt5 19:25 Drug: Potassium PO Effervescent Tablet 50 mEq PO once; dissolve in 4 ounces of water or kt5 juice Route: PO; 19:26 Follow up: Response: No adverse reaction kt5 Disposition Summary: 10/21/24 19:05 Discharge Ordered Notes: Location: Home kb Condition: Stable kb Diagnosis - Lower abdominal pain, unspecified kb Followup: kb - With: Emergency Department - When: As needed - Reason: Worsening of condition Followup: kb - With: Private Physician - When: 2 - 3 days - Reason: Recheck today's complaints, Continuance of care, Re-evaluation by your physician Discharge Instructions: - Discharge Summary Sheet kb - Abdominal Pain, Adult, [id number] kb Forms: - Medication Reconciliation Form kb - Antibiotic Education kb - Prescription Opioid Use kb - Patient Portal Instructions kb - Leadership Thank You Letter kb Signatures: Dispatcher [employer] EDSanjuanita Kwong, CHRISSYC BOILER RELINER-Yola Mcallister, RN RN Terrie Russ RN MERVIN [email or web address] Nayely Powell RN RN af3 Leyda Menjivar RN RN kt5 Corrections: (The following items were deleted from the chart) 17:43 17:01 Ondansetron Oral Disintegrating Tablet Oral Disintegrating Tablet 4 mg PO once af3 ordered. kb 17:43 17:42 Ondansetron Oral Disintegrating Tablet Oral Disintegrating Tablet 4 mg PO once af3 ordered. af3
--- NOTE | 2024-10-21 19:06 | ER ---
Nurse's Notes [facility] Name: Haylie Sherman Age: 79 yrs Sex: Female : 1945 Arrival Date: 10/21/2024 Time: 16:49 Bed 14 Private MD: Diagnosis: Lower abdominal pain, unspecified Presentation: 10/21 17:09 Chief complaint: Patient states: Lower abdominal pain, constipation for the last few jl7 days; cholecystectomy 10/13/24. Coronavirus screen: At this time, the client does not indicate any symptoms associated with coronavirus-19. Ebola Screen: No symptoms or risks identified at this time. Initial Sepsis Screen: Does the patient meet any 2 criteria? No. Patient's initial sepsis screen is negative. Does the patient have a suspected source of infection? No. Patient's initial sepsis screen is negative. Risk Assessment: Do you want to hurt yourself or someone else? Patient reports no desire to harm self or others. Onset of symptoms is unknown. 17:09 Method Of Arrival: Ambulatory jl7 17:09 Acuity: RIVAS 3 jl7 Historical: - Allergies: 17:11 Codeine; jl7 - PMHx: 17:11 Hypertensive disorder; Hypercholesterolemia; jl7 - PSHx: 17:11 Cholecystectomy; jl7 - Immunization history:: Adult Immunizations unknown. - Infectious Disease History:: Denies. - Social history:: Smoking status: Patient denies any tobacco usage or history of. Screenin:30 [facility] ED Fall Risk Assessment (Adult) History of falling in the last 3 months, af3 including since admission No falls in past 3 months (0 pts) Confusion or Disorientation No (0 pts) Intoxicated or Sedated No (0 pts) Impaired Gait No (0 pts) Mobility Assist Device Used No (0 pt) Altered Elimination No (0 pt) Score/Fall Risk Level 0 - 2 = Low Risk Oriented to surroundings, Maintained a safe environment. Abuse screen: Denies threats or abuse. Denies injuries from another. Nutritional screening: No deficits noted. Tuberculosis screening: No symptoms or risk factors identified. Assessment: 17:30 General: Appears in no apparent distress. uncomfortable, well groomed, well developed, af3 Behavior is calm, cooperative, appropriate for age. Pain: Complains of pain in right lower quadrant and left lower quadrant Pain radiates to buttocks Pain currently is 9 out of 10 on a pain scale. Neuro: Level of Consciousness is awake, alert, obeys commands, Oriented to person, place, time, situation, Appropriate for age. Cardiovascular: Patient's skin is warm and dry. Respiratory: Airway is patent Respiratory effort is even, unlabored, Respiratory pattern is regular, symmetrical. GI: Reports lower abdominal pain, upper abdominal pain, nausea. : No signs and/or symptoms were reported regarding the genitourinary system. EENT: No signs and/or symptoms were reported regarding the EENT system. Derm: No signs and/or symptoms reported regarding the dermatologic system. Musculoskeletal: Circulation, motion, and sensation intact. Range of motion: intact in all extremities. 17:43 Reassessment: Verified w/ GLASS ROLLING MACHINE OPERATOR that pt is to receive IV Zofran instead of PO, see MAR. ph Vital Signs: 17:09 BP 140 / 68; Pulse 63; Resp 17; Temp 97; Pulse Ox 100% ; jl7 17:30 BP 143 / 68; Pulse 59; Resp 18; Pulse Ox 100% on R/A; af3 19:28 BP 145 / 73; Pulse 70; Resp 18 S; Temp 97.7(O); Pulse Ox 97% on R/A; kt5 ED Course: 16:53 Patient arrived in ED. al6 16:55 Sanjuanita Dow FNP-C [facility] kb 16:55 Theo Bernabe MD is Attending Physician. kb 17:03 Radiology exam delayed due to lab results not completed at this time. (BUN/Creatinine) jc4 IV insertion attempt and/or patient not having appropriate IV at this time. 17:09 Terrie Arriaga, RN is Primary Nurse. jl7 17:11 Triage completed. jl7 17:11 Arm band placed on right wrist. jl7 17:14 Yola Carlisle, MERVIN is Primary Nurse. ph 17:30 Patient has correct armband on for positive identification. Bed in low position. Call af3 light in reach. Provided Education on: meds, call light use . 17:30 No provider procedures requiring assistance completed. Inserted saline lock: 20 gauge af3 in right antecubital area, using aseptic technique. Blood collected. Flushed with 10 mL NS. 18:36 CT Abd/Pelvis - IV Contrast Only In Process Unspecified. EDMS 19:26 IV discontinued, intact, bleeding controlled, No redness/swelling at site. Pressure kt5 dressing applied. Administered Medications: 17:42 Drug: NS 0.9% IV 500 ml 500 ml IV at 1 bolus once; to be given as a bolus over 30 af3 minutes Volume: 500 ml; Route: IV; Rate: 1 bolus; Site: right antecubital; 19:25 Follow up: Response: No adverse reaction; IV Status: Completed infusion; IV Intake: kt5 500ml 17:43 CANCELLED (Other Intervention Used): Ondansetron Oral Disintegrating Tablet 4 mg PO onceaf3 17:45 Drug: Ondansetron IVP 4 mg IVP once; over 2 minutes Route: IVP; Site: right antecubital;af3 19:26 Follow up: Response: No adverse reaction; Nausea is decreased kt5 19:25 Drug: Potassium PO Effervescent Tablet 50 mEq PO once; dissolve in 4 ounces of water or kt5 juice Route: PO; 19:26 Follow up: Response: No adverse reaction kt5 Medication: 17:30 VIS not applicable for this client. af3 Intake: 19:25 IV: 500ml; Total: 500ml. kt5 Outcome: 19:05 Discharge ordered by MD. xavier 19:26 Discharged to home ambulatory, with family, kt5 19:26 Condition: stable 19:26 Discharge instructions given to patient, family, Instructed on discharge instructions, follow up and referral plans. medication usage, Demonstrated understanding of instructions, follow-up care, 19:31 Patient left the ED. kt5 Signatures: Dispatcher [employer] EDMS Sanjuanita Dow, PROSTHETICS TECHNICIAN-C PROSTHETICS TECHNICIAN-Yola Mcallister, RN RN Terrie Arriaga RN RN jl7 Moreno Ovalle4 Nayely Powell RN RN af3 Samantha Griffin Keri RN RN kt5
[2024-10-21] MEDS ORDERED: POTASSIUM 25 MEQ EFFERV TAB ONE (19:21)
[2024-10-21 23:07] VITALS: TEMP 98
[2024-10-21 23:09] VITALS: BP 137/93; O2SAT 98
== END 2024-10-21 19:31 | disposition home or self-care (01) ==
LOC: ER 16:49
DX: R10.30 Lower abdominal pain, unspecified (principal); Z90.49 Acquired absence of other specified parts of digestive tract
CPT/HCPCS: 96361; 93005; 85025; 36415; 81003; 83690; 80053; 74177; 96374; 99284; J2405; J7040

== ENCOUNTER 2024-10-22 18:56 | Inpatient (IN) | payer OTHER ==
[2024-10-22] MEDS ORDERED: NA CHLORIDE 0.9% 1,000 ML ONE ×2 (20:12→22:54)
[2024-10-22 20:34] LABS: Absolute Lymphocytes (CBC) 0.5 K/uL (0.7-4.9); Hematocrit 40.9 % (36.0-45.0); Hemoglobin 14.3 g/dL (12.0-15.0); MCH 28.7 pg (27.0-35.0); MCHC 34.9 g/dL (32.0-36.0); MCV 82.2 fL (80-100); MPV 7.9 fL (7.6-11.3); Nucleated RBC Absolute Count 0.0 (0-0); Nucleated Red Blood Cells % 0.0 % (0-0); RBC Red Blood Cell Count 4.97 M/uL (3.86-4.86); White Blood Count 24.20 thou/uL (4.3-10.9)
[2024-10-22 20:41] LABS: PT Prothrombin Time 11.5 SECONDS (10-13.0); Protime INR 1.02
[2024-10-22 21:03] LABS: ALT/SGPT 29.0 U/L (13-56); Albumin 3.4 g/dL (3.4-5.0); Albumin/Globulin Ratio 0.9 (1.1-1.8); Alkaline Phosphatase 129.0 U/L (45-117); Anion Gap 13.3 mEq/L (5.0-15.0); BUN Blood Urea Nitrogen 22.0 mg/dL (7-18); Bilirubin Indirect, Calculated 0.6 mg/dL (0.2-0.8); Globulin 3.9 g/dL (2.3-3.5); Glucose Level 162.0 mg/dL (74-106); Lipase 18.0 U/L (13-75); NT PRO-BNP 321.0 pg/mL (<450); Troponin High Sensitivity 5.9 pg/mL (<58.9)
[2024-10-22 21:05] LABS: AST/SGOT 34.0 U/L (15-37); Magnesium 2.6 mg/dL (1.6-2.4); Potassium 3.3 mEq/L (3.5-5.1)
[2024-10-22 21:23] LABS: Blood Morphology Comment NOT SEEN (NOT SEEN); Differential Total Cells Count 100; Segmented Neutrophils 91 % (40-80); Toxic Granulation 1+
[2024-10-22] MEDS ORDERED: PIPERACIL/TAZO 3.375 GM VIAL IV ONE (21:28)
[2024-10-22] MEDS ORDERED: MORPHINE 4 MG/ML SYR ONE (21:28)
[2024-10-22] MEDS ORDERED: ONDANSETRON 4 MG/2 ML VIAL ONE (21:28)
[2024-10-22] MEDS ORDERED: NA CHLORIDE 0.9% 100 ML ONE (21:28)
--- NOTE | 2024-10-22 21:54 | RAD REPORT ---
EXAM: Chest Abdomen Pelvis W Cont CLINICAL INDICATION: Chest and abdominal pain TECHNIQUE: CT chest, abdomen and pelvis was performed, with 100 cc Isovue-300 IV contrast, as per de partment protocol. Axial, sagittal and coronal reconstructions were obtained. One or more of the following dose reduction techniques were used: Automated exposure control, adjustment of the mA and/o r kV according to the patient size, and/or iterative reconstruction. Unless otherwise specified, incidental findings do not require dedicated imaging follow-up. [id number]. Oral contrast not given. This limits evaluation of the bowel. COMPARISON: October 21, 2024 FINDINGS: Several tiny nodules are present within the lungs probably benign. Mild tree in bud opacities are als o present within the lungs bilaterally.. This is nonspecific but can be seen with a mild atypical infection. No pleural effusion.. No pericardial effusion Liver, spleen, pancreas, adrenals, and left kidney unremarkable. 3.2 cm right renal cyst. Cholecystectomy. 3.5 cm collection of stool is present within the sigmoid colon. The rest of the colon is dilated prox imal to this. Descending colon 4.5 cm. Transverse colon 6 cm. Ascending colon 6 cm. There is no evidence of diverticulitis mild thickening of the wall of the sigmoid colon may be second niesha to muscular hypertrophy. No adnexal mass. Borderline thickening of the endometrium. IMPRESSION: 3.5 cm collection of stool within the sigmoid colon. This may result in an obstruction as the more pr oximal colon is dilated. Borderline thickening of the endometrium. Further evaluation with nonemergent endovascular ultrasound recommended.
--- NOTE | 2024-10-22 21:58 | RAD REPORT ---
Procedure: Chest Single View HISTORY: Sepsis COMPARISON: October 11, 2024 FINDINGS: The lungs appear clear of acute infiltrate. No significant pleural effusion noted. The heart is normal size. IMPRESSION: No acute abnormality is displayed.
--- NOTE | 2024-10-22 22:41 | ER ---
Nurse's Notes [facility] Name: Haylie Sherman Age: 79 yrs Sex: Female : 1945 Arrival Date: 10/22/2024 Time: 18:56 Bed 15 Private MD: Diagnosis: Abdominal pain, Generalized Presentation: 10/22 19:14 Ebola Screen: No symptoms or risks identified at this time. Initial Sepsis Screen: Does kd3 the patient meet any 2 criteria? No. Patient's initial sepsis screen is negative. Does the patient have a suspected source of infection? No. Patient's initial sepsis screen is negative. 19:14 Method Of Arrival: Wheelchair kd3 19:15 Chief complaint: Patient states: She has a blockage in her colon and she was discharged me1 from the ER last night and she was sent home and told to take mag citrate. PT returned to the ED today due to increased abdominal pain and distention. Pt is hypotensive in triage. 19:19 Coronavirus screen: Vaccine status: Patient reports receiving the 2nd dose of the covid kd3 vaccine. Risk Assessment: Do you want to hurt yourself or someone else? Patient reports no desire to harm self or others. Onset of symptoms was October 21, 2024. 19:19 Acuity: RIVAS 2 kd3 Triage Assessment: 19:21 General: Appears ill, Behavior is calm, cooperative. Pain: Complains of pain in kd3 abdomen. GI: Historical: - Allergies: 19:21 Codeine; kd3 - PMHx: 19:21 Hypercholesterolemia; Hypertensive disorder; kd3 - PSHx: 19:21 Cholecystectomy; kd3 - Immunization history:: Adult Immunizations up to date. - Infectious Disease History:: Denies. - Social history:: Smoking status: Patient denies any tobacco usage or history of. Screenin:25 [facility] ED Fall Risk Assessment (Adult) History of falling in the last 3 months, me1 including since admission No falls in past 3 months (0 pts) Confusion or Disorientation No (0 pts) Intoxicated or Sedated No (0 pts) Impaired Gait No (0 pts) Mobility Assist Device Used No (0 pt) Altered Elimination No (0 pt) Score/Fall Risk Level 0 - 2 = Low Risk Maintained a safe environment, Provided non-skid footwear, Hourly rounding (assess needs \T\ fall precautionary measures) done. Abuse screen: Denies threats or abuse. Nutritional screening: No deficits noted. Tuberculosis screening: No symptoms or risk factors identified. Assessment: 19:25 General: Appears uncomfortable, well groomed, well developed, well nourished, Behavior me1 is calm, cooperative, appropriate for age, Reports She has a blockage in her colon and she was discharged from the ER last night and she was sent home and told to take mag citrate. PT returned to the ED today due to increased abdominal pain and distention. Patient is s/p cholecystecomy almost 2 weeks ago. Pain: Complains of pain in right lower quadrant and left lower quadrant Pain does not radiate. Pain currently is 8 out of 10 on a pain scale. Quality of pain is described as pressure, sharp, Pain began gradually, Is continuous. Neuro: Level of Consciousness is awake, alert, obeys commands, Oriented to person, place, time, situation, Appropriate for age. Cardiovascular: Patient's skin is warm and dry. Respiratory: Airway is patent Respiratory effort is even, unlabored, Respiratory pattern is regular, symmetrical. GI: Abdomen is distended, Abdomen is tender to palpation in right lower quadrant and left lower quadrant. GI: Reports bloating, constipation, cramping. : No signs and/or symptoms were reported regarding the genitourinary system. :. EENT: No signs and/or symptoms were reported regarding the EENT system. Derm: Skin is intact, is healthy with good turgor, Skin is normal. Musculoskeletal: Circulation, motion, and sensation intact. Range of motion: intact in all extremities. 22:18 General: Appears in no apparent distress. Behavior is calm, cooperative. General: Pt kd3 reports improvement of symptoms. . GI: Bowel sounds present X 4 quads. Vital Signs: 19:13 Pulse 67; Resp 18; Temp 98.2; Pulse Ox 94% on R/A; Weight 55.34 kg; Height 5 ft. 2 in. ;kd3 19:22 BP 75 / 46; kd3 19:30 BP 105 / 56; Pulse 61; Resp 16; Pulse Ox 96% ; me1 20:00 BP 103 / 55; Pulse 61; Resp 16; Pulse Ox 97% ; me1 21:00 BP 113 / 54; Pulse 60; Resp 14; Pulse Ox 97% ; me1 21:40 BP 123 / 58; Pulse 72; Resp 20; Pulse Ox 97% on R/A; me1 22:15 BP 105 / 52; Pulse 69; Resp 18; Pulse Ox 94% on R/A; kd3 22:52 BP 99 / 44; Pulse 71; Resp 19; Pulse Ox 96% on R/A; kd3 23:55 BP 117 / 50; Pulse 72; Resp 18; Pulse Ox 97% on R/A; kd3 10/23 00:59 BP 116 / 57; Pulse 69; Resp 18; Pulse Ox 96% on R/A; kd3 10/22 19:13 Body Mass Index 22.31 (55.34 kg, 157.48 cm) kd3 ED Course: 10/22 18:58 Patient arrived in ED. mr 19:03 Sanjuanita Dow, JERI is PHCP. kb 19:03 Ronnie Marshall MD is Attending Physician. kb 19:04 Juan Schwarz MD is Attending Physician. tw7 19:21 Triage completed. kd3 19:21 Arm band placed on right wrist. kd3 19:22 Rach Guzman, MERVIN is Primary Nurse. kd3 19:25 Patient has correct armband on for positive identification. Bed in low position. Call me1 light in reach. Side rails up X 1. Provided Education on: POC, Verbalized understanding.. Client placed on continuous cardiac and pulse oximetry monitoring. NIBP monitoring applied. laboratory monitor on. Pulse ox on. NIBP on. 19:25 No provider procedures requiring assistance completed. me1 20:11 Initial lab(s) drawn, by me, sent to lab. First set of blood cultures drawn by me. me1 20:16 Blood Culture Adult (2) Sent. me1 20:16 Lactate w/ 2H reflex if indic. Sent. me1 20:16 Procalcitonin Sent. me1 20:16 LFT's Sent. me1 20:16 Magnesium Sent. me1 20:16 NT PRO-BNP Sent. me1 20:17 PT-INR Sent. me1 20:17 Troponin HS Sent. me1 20:17 CBC with Diff Sent. me1 20:17 CMP Sent. me1 20:17 Lipase Sent. me1 20:18 Inserted saline lock: 22 gauge in right antecubital area, using aseptic technique. me1 20:20 Second set of blood cultures drawn by me. me1 20:29 XRAY Chest (1 view) In Process Unspecified. EDMS 21:10 Chest Abdomen Pelvis W Cont In Process Unspecified. EDMS 21:26 EKG done, by ED staff, reviewed by Juan Schwarz MD. me1 22:40 Hardy Carr MD is Hospitalizing Provider. 10/23 01:06 Patient admitted, IV remains in place. kd3 Administered Medications: 10/22 21:14 Drug: NS 0.9% IV 1000 ml IV at 1000 ml once; to be given as a bolus over 60 minutes me1 Route: IV; Rate: 1000 ml; Site: right antecubital; 21:58 Follow up: Response: No adverse reaction; IV Status: Completed infusion me1 21:41 Drug: Piperacillin-Tazobactam IVPB 3.375 grams IVPB once over 60 mins; (mix in NS 100 me1 mL) Route: IVPB; Infused Over: 60 mins; Site: right antecubital; 21:41 Drug: morphine IVP or IV 4 mg IVP once over 4 mins Route: IVP; Infused Over: 4 mins; me1 Site: right antecubital; 21:41 Drug: Ondansetron IVP 4 mg IVP once; over 2 minutes Route: IVP; Site: right antecubital;me1 22:15 Not Given (Physician Discretion): ns 0.9% 1000 ml IV at 1000 ml once; to be given as a kd3 bolus over 60 minutes 23:09 Drug: NS 0.9% IV 1000 ml IV at 1 bolus Per protocol; to be given as a bolus over 60 kd3 minutes Route: IV; Rate: 1 bolus; Site: right antecubital; 23:55 Drug: Potassium Chloride IV 20 mEq IV at calculated rate once; administer over 1-2 kd3 hours Route: IV; Rate: calculated rate; Site: right antecubital; Medication: 19:25 VIS not applicable for this client. me1 Outcome: 22:40 Decision to Hospitalize by Provider. 10/23 01:05 Admitted to Med/surg accompanied by tech, via wheelchair, kd3 Condition: stable Discharge instructions given to patient, Instructed on the need for admit, Demonstrated understanding of instructions, 01:06 Patient left the ED. kd3 Signatures: Dispatcher [facility] EDMS Sanjuanita Dow, ASH KIER BOILER-C ASH KIER BOILER-Ckb Clemencia Omalley, Reg Reg mr Rach Guzman, RN RN kd3 Edelmira Carrion RN RN me1 Juan Schwarz MD MD tw7 Corrections: (The following items were deleted from the chart) 10/22 19:21 19:15 Chief complaint: Patient states: She has a blockage in her colon and she was kd3 discharged from the ER last night and she kd3 20:27 19:15 Chief complaint: Patient states: She has a blockage in her colon and she was me1 discharged from the ER last night and she was sent home and told to take mag citrate. PT returned to the ED today due to increased abdominal pain and distention. Pt is hypotensive in triage. kd3 20:31 19:25 General: Appears uncomfortable, well groomed, well developed, well nourished, me1 Behavior is calm, cooperative, appropriate for age, Reports She has a blockage in her colon and she was discharged from the ER last night and she was sent home and told to take mag citrate. PT returned to the ED today due to increased abdominal pain and distention. me1
--- NOTE | 2024-10-22 22:41 | EDPHYS ---
Physician Documentation [facility] Name: Haylie Sherman Age: 79 yrs Sex: Female : 1945 Arrival Date: 10/22/2024 Time: 18:56 Bed 15 Private MD: ED Physician Juan Schwarz HPI: 10/22 19:42 This 79 yrs old Female presents to ER via Wheelchair with complaints of Abdominal Pain, tw7 Constipation. 19:42 79-year-old female with a past medical history of hypertension, hyperlipidemia presents tw7 ED today for further evaluation of abdominal pain, vomiting, constipation. Patient reports that she been having intermittent abdominal pain since her recent surgery on 10/11/2024. Patient reports the abdominal pain is constant but but when it severe it is 10 out of 10. Patient reports that she is visited the hospital multiple times since her surgery for abdominal pain also reports that she has follow-up in the clinic with her general surgeon. Patient reports the abdominal pain is mainly in the left lower quadrant and is severe. She reports vomiting multiple times today. She reports having constipation as well. Patient daughter at bedside is an additional historian, reports that since the surgery on 10/11/2024 patient has been having problems with abdominal pain constipation. They have been attempting to use multiple laxative medications, magnesium citrate and enemas at home over the last 24 hours and that she started vomiting today so they brought her into the ER. Patient denies chest pain,, fever, cough. Does report some chills and intermittent mild shortness of breath. General surgery: Dr. Philippe. GI Doc: Dr. Negron. Historical: - Allergies: 19:21 Codeine; kd3 - PMHx: 19:21 Hypercholesterolemia; Hypertensive disorder; kd3 - PSHx: 19:21 Cholecystectomy; kd3 - Immunization history:: Adult Immunizations up to date. - Infectious Disease History:: Denies. - Social history:: Smoking status: Patient denies any tobacco usage or history of. ROS: 19:47 Respiratory: Positive for shortness of breath, Negative for cough, hemoptysis, tw7 orthopnea, sputum production, wheezing, 19:47 Abdomen/GI: Positive for abdominal pain, nausea and vomiting, constipation, abdominal cramps, Negative for hematemesis, black/tarry stool, rectal pain, rectal bleeding, 19:48 Constitutional: Negative for fever, chills, and weight loss, Eyes: Negative for injury, tw7 pain, redness, and discharge, ENT: Negative for injury, pain, and discharge, Neck: Negative for injury, pain, and swelling, Cardiovascular: Negative for chest pain, palpitations, and edema, 19:48 Back: Negative for injury and pain, MS/Extremity: Negative for injury and deformity, Skin: Negative for injury, rash, and discoloration, Neuro: Negative for headache, weakness, numbness, tingling, and seizure, 19:48 Respiratory: Negative for Exam: 19:49 Abdomen/GI: Exam negative for Inspection: Palpation: moderate abdominal tenderness, in tw7 the right lower quadrant and left lower quadrant, 19:49 Abdomen/GI: Bowel sounds: normal, in all quadrants, high pitched, all quadrants. Indicators: McBurney's point is tender, 19:50 Constitutional: This is a well developed, well nourished patient who is awake, alert, tw7 and in no acute distress. Head/Face: Normocephalic, atraumatic. Eyes: Pupils equal round and reactive to light, extra-ocular motions intact. Lids and lashes normal. Conjunctiva and sclera are non-icteric and not injected. Cornea within normal limits. Periorbital areas with no swelling, redness, or edema. Cardiovascular: Regular rate and rhythm with a normal S1 and S2. No gallops, murmurs, or rubs. Normal PMI, no JVD. No pulse deficits. Respiratory: Lungs have equal breath sounds bilaterally, clear to auscultation and percussion. No rales, rhonchi or wheezes noted. No increased work of breathing, no retractions or nasal flaring. 19:50 Chest/axilla: Inspection: Palpation: is normal, no crepitus, no tenderness, 19:50 Cardiovascular: Exam negative for 19:50 Skin: Appearance: Surgical wounds appear clean dry and intact,, 10/23 07:40 ECG was reviewed by the Attending Physician. tw7 Vital Signs: 10/22 19:13 Pulse 67; Resp 18; Temp 98.2; Pulse Ox 94% on R/A; Weight 55.34 kg; Height 5 ft. 2 in. ;kd3 19:22 BP 75 / 46; kd3 19:30 BP 105 / 56; Pulse 61; Resp 16; Pulse Ox 96% ; me1 20:00 BP 103 / 55; Pulse 61; Resp 16; Pulse Ox 97% ; me1 21:00 BP 113 / 54; Pulse 60; Resp 14; Pulse Ox 97% ; me1 21:40 BP 123 / 58; Pulse 72; Resp 20; Pulse Ox 97% on R/A; me1 22:15 BP 105 / 52; Pulse 69; Resp 18; Pulse Ox 94% on R/A; kd3 22:52 BP 99 / 44; Pulse 71; Resp 19; Pulse Ox 96% on R/A; kd3 23:55 BP 117 / 50; Pulse 72; Resp 18; Pulse Ox 97% on R/A; kd3 10/23 00:59 BP 116 / 57; Pulse 69; Resp 18; Pulse Ox 96% on R/A; kd3 10/22 19:13 Body Mass Index 22.31 (55.34 kg, 157.48 cm) kd3 MDM: 10/22 19:40 Medical Screening Exam initiated dilia 19:52 Data reviewed: vital signs, nurses notes, EMS record, old medical records. ED course: . tw7 23:21 ED course: 79-year-old female recently status post cholecystectomy presents ED today tw7 with complaints of abdominal pain, nausea, vomiting and constipation. On initial evaluation patient was hypotensive, patient's blood pressure improved with IV fluid. Lab work performed shows a white count of 24. Blood cultures, procalcitonin, lactic acid sent. Procalcitonin is negative. Lactic acid is 1.8. Lab work otherwise shows that patient has hyponatremia with sodium of 128. Hypokalemia potassium 3.3. Patient be given IV potassium chloride. Creatinine of 0.96 normal LFTs. Mild elevation of alk phos. Negative lipase. BNP is normal. Cardiac enzymes are negative. Chest x-ray shows no evidence of cardiopulmonary abnormality. CT chest abdomen pelvis performed for further evaluation and management shows patient has a 3.5 cm collection of stool within the sigmoid colon causing an obstruction of the more proximal colon is dilated. Pulmonary nodules mild tree-in-bud opacities lungs bilaterally but this could be an pneumonia. Patient presentation is concerning for sepsis secondary to pneumonia versus intra-abdominal source, patient is given IV antibiotics. IV fluid resuscitation. Pain medication. I discussed patient with her surgeon who recommend admission to the hospital, GI consultation and he will see the patient. Patient's blood pressure initially improved after fluid bolus but now with systolics in the upper 90s. Will continue to monitor patient's blood pressure. Patient is septic from intra-abdominal source. Patient is on IV fluid and IV antibiotics. If patient blood pressure downtrends may need to be upgraded to ICU. . 10/22 19:26 Order name: CBC with Diff; Complete Time: 21:39 10/22 19:26 Order name: CMP; Complete Time: 21:10 10/22 19:26 Order name: Lipase; Complete Time: 21:10 10/22 19:26 Order name: LFT's; Complete Time: 21:10 10/22 19:26 Order name: Magnesium; Complete Time: 21:10 10/22 19:26 Order name: NT PRO-BNP; Complete Time: 21:10 10/22 19:26 Order name: PT-INR; Complete Time: 21:10 10/22 19:26 Order name: Troponin HS; Complete Time: 21:10 10/22 19:41 Order name: Blood Culture Adult (2) 10/22 19:41 Order name: Lactate w/ 2H reflex if indic.; Complete Time: 21:10 10/22 19:41 Order name: Procalcitonin; Complete Time: 21:39 10/22 20:54 Order name: Manual Differential; Complete Time: 21:39 [facility] 10/22 23:47 Order name: CBC with Automated Diff [facility] 10/22 23:47 Order name: CBC with Automated Diff [facility] 10/22 23:47 Order name: Comprehensive Metabolic Panel [facility] 10/22 23:47 Order name: Comprehensive Metabolic Panel [facility] 10/22 19:26 Order name: XRAY Chest (1 view); Complete Time: 22:09 10/22 21:10 Order name: Chest Abdomen Pelvis W Cont; Complete Time: 22:09 [facility] 10/22 19:41 Order name: EKG; Complete Time: 19:41 10/22 23:47 Order name: CONS Physician Consult [facility] 10/22 23:53 Order name: CONS Physician Consult [facility] 10/22 19:26 Order name: Cardiac monitoring; Complete Time: 21:26 27 19:26 Order name: EKG - Nurse/Tech; Complete Time: :26 10/22 19:26 Order name: IV Saline Lock; Complete Time: 20:16 10/22 19:26 Order name: Labs collected and sent; Complete Time: 20:16 10/22 19:26 Order name: O2 Per Protocol; Complete Time: 20:16 10/22 19:26 Order name: O2 Sat Monitoring; Complete Time: 20:16 10/22 19:41 Order name: Accucheck; Complete Time: 21:26 10/22 19:41 Order name: IV Saline Lock - Large Bore; Complete Time: 20:18 10/22 19:41 Order name: Vital Signs; Complete Time: 20: EC/28 07:40 Rate is 74 beats/min. Rhythm is regular. QRS [place] is Normal. QT interval is prolonged tw7 at 481 msec. T waves are Inverted. Administered Medications: 10/22 21:14 Drug: NS 0.9% IV 1000 ml IV at 1000 ml once; to be given as a bolus over 60 minutes me1 Route: IV; Rate: 1000 ml; Site: right antecubital; 21:58 Follow up: Response: No adverse reaction; IV Status: Completed infusion me1 21:41 Drug: Piperacillin-Tazobactam IVPB 3.375 grams IVPB once over 60 mins; (mix in NS 100 me1 mL) Route: IVPB; Infused Over: 60 mins; Site: right antecubital; 21:41 Drug: morphine IVP or IV 4 mg IVP once over 4 mins Route: IVP; Infused Over: 4 mins; me1 Site: right antecubital; 21:41 Drug: Ondansetron IVP 4 mg IVP once; over 2 minutes Route: IVP; Site: right antecubital;me1 22:15 Not Given (Physician Discretion): ns 0.9% 1000 ml IV at 1000 ml once; to be given as a kd3 bolus over 60 minutes 23:09 Drug: NS 0.9% IV 1000 ml IV at 1 bolus Per protocol; to be given as a bolus over 60 kd3 minutes Route: IV; Rate: 1 bolus; Site: right antecubital; 23:55 Drug: Potassium Chloride IV 20 mEq IV at calculated rate once; administer over 1-2 kd3 hours Route: IV; Rate: calculated rate; Site: right antecubital; Disposition Summary: 10/22/24 22:40 Hospitalization Ordered Notes: Hospitalization Status: Inpatient Admission tw7 Provider: Hardy Carr tw7 Location: Telemetry/MedSurg (Inpatient) tw7 Condition: Stable tw7 Problem: new tw7 Symptoms: have worsened tw7 Bed/Room Type: Standard 7 Room Assignment: 411(10/23/24 00:01) [facility] Diagnosis - Abdominal pain, Generalized tw7 Forms: - Medication Reconciliation Form tw7 - SBAR form tw7 - Leadership Thank You Letter 7 Signatures: Dispatcher [employer] EDMS Ronnie Marshall MD MD cha Doucette, Kyli, RN RN kd3 Edelmira Carrion RN RN me1 Dorcas Chapa [facility] Juan Schwarz MD MD tw7 Corrections: (The following items were deleted from the chart) 19:26 19:26 CBC+H.LAB.BRZ ordered. EDLA EDLA 19:26 19:26 COMPREHENSIVE METABOLIC PANEL+C.LAB.BRZ ordered. EDLA EDLA 19:26 19:26 LIPASE+C.LAB.BRZ ordered. EDLA EDLA 19:26 19:26 HEPATIC FUNCTION+C.LAB.BRZ ordered. [facility] EDLA 19:26 19:26 MAGNESIUM+C.LAB.BRZ ordered. EDLA EDLA 19:26 19:26 PROBNP+C.LAB.BRZ ordered. EDLA EDLA 19:26 19:26 PROTIME (+INR)+COAG.LAB.BRZ ordered. EDLA EDLA 19:26 19:26 Troponin High Sensitivity+C.LAB.BRZ ordered. [facility] EDLA 19:26 19:26 Chest Single View+RAD.RAD.BRZ ordered. [facility] EDLA 19:27 19:27 Chest Abdomen W/ Con+CT.RAD.BRZ ordered. [facility] EDLA 19:47 19:42 79-year-old female with a past medical history of hypertension, hyperlipidemia tw7 presents ED today for further evaluation of abdominal pain, vomiting, constipation. Patient reports that she been having intermittent abdominal pain since her recent surgery on 10/11/2024. Patient reports the abdominal pain is constant but but when it severe it is 10 out of 10. Patient reports that she is visited the hospital multiple times since her surgery for abdominal pain also reports that she has follow-up in the clinic with her general surgeon. Patient reports the abdominal pain is mainly in the left lower quadrant and is severe. She reports vomiting multiple times today. She reports having constipation as well. Patient daughter at bedside is an additional historian, reports that since the surgery on 10/11/2024 patient has been having problems with abdominal pain constipation. They have been attempting to use multiple laxative medications, magnesium citrate and enemas at home over the last 24 hours and that she started vomiting today so they brought her into the ER. General surgery: Dr. Philippe. GI Doc: Dr. Negron. 19:48 19:47 Abdomen/GI: Positive for abdominal pain, nausea and vomiting, constipation, tw7 abdominal cramps, Negative for hematemesis, black/tarry stool, rectal pain, rectal bleeding, 10/23 00:01 10/22 22:40 [facility]
[2024-10-22] MEDS ORDERED: KCL 20 MEQ/100 mL IVPB 100 ML IV ONE (23:40)
[2024-10-22] MEDS ORDERED: ACETAMINOPHEN 325 MG TABLET PO PRN (23:40)
--- NOTE | 2024-10-22 23:47 | P.HP ---
Certification for Inpatient Patient admitted to: Inpatient With expected LOS: >2 Midnights Practitioner: I am a practitioner with admitting privileges, knowledge of patient current condition, hospital course, and medical plan of care. Services: Services provided to patient in accordance with Admission requirements found in Title 42 Section 412.3 of the Code of Federal Regulations Patient History Date of Service: 10/23/24 Reason for admission: Abdominal pain History of Present Illness: 79 yrs old Female with past medical history of hypertension, hyperlipidemia, history of cholecystectomy who presented to ER with abdominal pain and constipation which has been going on for the last few days. The pain is slowly progressively getting worse associated with nausea and vomiting and also constipation. She had surgery on 10/11/[address] Philippe. Patient reports that she is visited the hospital multiple times since her surgery for abdominal pain also reports that she has follow-up in the clinic with her general surgeon. Patient reports the abdominal pain is mainly in the left lower quadrant and is severe. She reports vomiting multiple times today. She reports having constipation as well. Patient daughter at bedside is an additional historian, reports that since the surgery on 10/11/2024 patient has been having problems with abdominal pain constipation. They have been attempting to use multiple laxative medications, magnesium citrate and enemas at home over the last 24 hours and that she started vomiting today so they brought her into the ER. Patient denies chest pain,, fever, cough. Does report some chills and intermittent mild shortness of breath. Patient was assessed in the ER and is admitted for further management. Allergies codeine Adverse Reaction (Verified 10/10/24 23:00) nausea Home medications list reviewed: Yes Home Medications: Omeprazole 20 mg PO DAILY 11/06/16 atenoloL [Tenormin*] 50 mg PO DAILY 11/06/16 Amlodipine Besylate 5 mg PO DAILY 07/31/24 Atorvastatin Calcium [Lipitor] 80 mg PO BEDTIME 07/31/24 Losartan Potassium 100 mg PO DAILY 07/31/24 hydroCHLOROthiazide [Hydrochlorothiazide] 25 mg PO DAILY 07/31/24 Aspirin [Aspirin EC 325 MG] 325 mg PO BID 10/10/24 Hydrocodone 5/APAP 325 [[place] 5/325*] 1 tab PO Q8H PRN 5 Days #15 tab 10/12/24 Amlodipine [Norvasc] 5 mg PO DAILY 10/23/24 Zolpidem Tartrate [Ambien] 10 mg PO BEDTIME PRN PRN 10/23/24 - Past Medical/Surgical History Diabetic: No Past Medical History: Reviewed- Non-Contributory -: blood pressure -: cholesterol -: GERD -: Mitral valve prolapse. Past Surgical History: Reviewed- Non-Contributory -: torn meniscus -: uterus lift -: Right knee replacement. -: Cholecystectomy - Family History Family History: Reviewed- Non-Contributory - Family History Mother -: Heart disease Father -: Heart disease Brother -: Cancer (Colon cancer.) Sister -: Cancer (Sister cancer.) - Social History Smoking Status: Never smoker Alcohol use: No CD- Drugs: No Caffeine use: No Review of Systems 10-point ROS is otherwise unremarkable Physical Examination - Vital Signs Temperature: 98 F Blood Pressure: 135/62 Pulse: 72 Respirations: 18 Pulse Ox (%): 94 - Physical Exam General: Alert, Oriented x3, Moderate distress HEENT: Atraumatic, Normocephalic Neck: Supple, No Thyromegaly Respiratory: Clear to auscultation bilaterally, Normal air movement Cardiovascular: Regular rate/rhythm, Normal S1 S2 Capillary refill: <2 Seconds Gastrointestinal: Soft and benign, W/out hepatosplenomegaly, Tenderness Musculoskeletal: No clubbing, No swelling Integumentary: No significant lesion, No tenderness/swelling Neurological: Other (Alert awake nonfocal) Lymphatics: No axilla or inguinal lymphadenopathy - Studies Laboratory Data (last 24 hrs) 10/22/24 10/22/24 10/22/24 20:11 20:11 20:11 WBC 24.20 H Hgb 14.3 D Hct 40.9 Plt Count 312 PT 11.5 INR 1.02 Sodium 128 L Potassium 3.3 L D BUN 22 H Creatinine 0.96 Glucose 162 H Magnesium 2.6 H Total Bilirubin 0.9 AST 34 ALT 29 Alkaline Phosphatase 129 H Lipase 18 Assessment and Plan - Plan Colitis Pain control IV antibiotics started IV hydration Surgical consult Hyponatremia Hypokalemia Dehydration Started on IV hydration Monitor closely and telemetry Electrolytes monitor and replace accordingly Elevated LFTs Leukocytosis Will monitor CBC in a.m. Cultures pending Hypertension Antihypertensives titrated Continue home medications and titrate as needed Hyperlipidemia Continue statin GI/DVT prophylaxis Advanced directive full code Discharge Plan: Home Plan to discharge in: 48 Hours - Advance Directives Does patient have a Living Will: No Does patient have a Durable POA for Healthcare: No - Code Status/Comfort Care Code Status: Full Code Time Spent Managing Pts Care (In Minutes): 48
[2024-10-23] MEDS ORDERED: HYDROCODONE/APAP 5/325 MG TAB PO PRN ×2 (00:10→12:40)
[2024-10-23] MEDS ORDERED: ONDANSETRON 4 MG/2 ML VIAL ONE (00:49)
[2024-10-23] MEDS: MORPHINE 2 MG/ML SYR IV PRN (00:49)
[2024-10-23] MEDS ORDERED: MORPHINE 2 MG/ML SYR ONE (00:49)
[2024-10-23] MEDS: ONDANSETRON 4 MG/2 ML VIAL IV PRN (00:50)
[2024-10-23] MEDS: NA CHLORIDE 0.9% 1,000 ML IV SCH (01:20)
[2024-10-23] MEDS ORDERED: SODIUM CHLORIDE 0.9% 10ML INJ IV PRN (02:33)
[2024-10-23] MEDS: ZOLPIDEM TARTRATE 10 MG TABLET PO ONE (03:03)
[2024-10-23] MEDS: PANTOPRAZOLE 40 MG INJ IVP SCH (03:03)
[2024-10-23 05:22] LABS: Absolute Lymphocytes (CBC) 1.0 K/uL (0.7-4.9); Hematocrit 32.6 % (36.0-45.0); Hemoglobin 11.5 g/dL (12.0-15.0); MCH 29.1 pg (27.0-35.0); MCHC 35.2 g/dL (32.0-36.0); MCV 82.8 fL (80-100); MPV 7.4 fL (7.6-11.3); Nucleated RBC Absolute Count 0.0 (0-0); Nucleated Red Blood Cells % 0.0 % (0-0); RBC Red Blood Cell Count 3.94 M/uL (3.86-4.86); White Blood Count 21.40 thou/uL (4.3-10.9)
[2024-10-23 05:45] LABS: ALT/SGPT 81.0 U/L (13-56); AST/SGOT 64.0 U/L (15-37); Albumin 2.4 g/dL (3.4-5.0); Albumin/Globulin Ratio 0.8 (1.1-1.8); Alkaline Phosphatase 158.0 U/L (45-117); Anion Gap 10.9 mEq/L (5.0-15.0); BUN Blood Urea Nitrogen 26.0 mg/dL (7-18); Globulin 2.9 g/dL (2.3-3.5); Glucose Level 142.0 mg/dL (74-106); Potassium 2.9 mEq/L (3.5-5.1)
[2024-10-23] MEDS: BISACODYL 10 MG RECTAL SUPP PR ONE (06:17)
[2024-10-23] MEDS: PIPER TAZO 3.375 GM in NA CHLORIDE 0.9% 100 ML IV SCH (06:17)
[2024-10-23] MEDS ORDERED: POTASSIUM CL 40 MEQ in NA CHLORIDE 0.9% 500 ML IV SCH (07:00)
[2024-10-23 07:26] LABS: Magnesium 2.3 mg/dL (1.6-2.4)
[2024-10-23] MEDS: ENOXAPARIN 40 MG/0.4 ML SQ SCH (09:57)
[2024-10-23] MEDS: KCL 20 MEQ/100 mL IVPB 100 ML IV SCH ×2 (12:15→17:00)
--- NOTE | 2024-10-23 12:30 | P.PN ---
Subjective Date of Service: 10/23/24 Chief Complaint: Abdominal pain Subjective: Improving (Patient is having bowel movement, black tarry stool) Physical Examination - Vital Signs Temperature: 98.2 F Blood Pressure: 116/57 Pulse: 69 Respirations: 18 Pulse Ox (%): 95 - Physical Exam General: In no apparent distress, Cooperative HEENT: Atraumatic, Normocephalic Respiratory: Clear to auscultation bilaterally, Normal air movement Cardiovascular: No edema, Normal pulses, Regular rate/rhythm, Normal S1 S2 Gastrointestinal: Soft and benign, Non-distended Neurological: Normal speech - Studies Laboratory Data (last 24 hrs) 10/22/24 10/22/24 10/22/24 20:11 20:11 20:11 WBC 24.20 H Hgb 14.3 D Hct 40.9 Plt Count 312 PT 11.5 INR 1.02 Sodium 128 L Potassium 3.3 L D BUN 22 H Creatinine 0.96 Glucose 162 H Magnesium 2.6 H Total Bilirubin 0.9 AST 34 ALT 29 Alkaline Phosphatase 129 H Lipase 18 Assessment And Plan - Plan Assessment Patient is a 79-year-old female with recent cholecystectomy who presented to the hospital with abdominal pain. Her CT abdomen and pelvis revealed some sigmoid segment obstruction with proximal dilatation involving the descending transverse and ascending colon. She is having bowel movement with black tarry stools. Her hemoglobin has dropped 3 points. Her case has been discussed with the GI, general surgery was also notified of her admission. Large bowel obstruction Abdominal pain is GI bleedingrule out Anemia Transaminasemia Hyponatremia Hypokalemia Hypertension Plan: Repeat CBC and lactic acid Daily abdominal exam and imaging IV fluid infusion Zosyn for empiric coverage Antiemetics GI prophylaxis SCDs for DVT prophylaxis Follow GI surgery recommendation
[2024-10-23 12:57] LABS: Absolute Lymphocytes (CBC) 1.3 K/uL (0.7-4.9); Hematocrit 31.4 % (36.0-45.0); Hemoglobin 10.8 g/dL (12.0-15.0); MCH 28.6 pg (27.0-35.0); MCHC 34.4 g/dL (32.0-36.0); MCV 83.0 fL (80-100); MPV 7.8 fL (7.6-11.3); Nucleated RBC Absolute Count 0.0 (0-0); Nucleated Red Blood Cells % 0.0 % (0-0); RBC Red Blood Cell Count 3.78 M/uL (3.86-4.86); White Blood Count 18.90 thou/uL (4.3-10.9)
[2024-10-23 13:40] LABS: Toxic Granulation 1+; White Blood Cell Scan OK (OK)
[2024-10-23 13:41] LABS: Blood Morphology Comment NOT SEEN (NOT SEEN)
[2024-10-23 13:42] LABS: Anion Gap 10.1 mEq/L (5.0-15.0); Potassium 3.1 mEq/L (3.5-5.1)
[2024-10-23 13:43] LABS: BUN Blood Urea Nitrogen 22.0 mg/dL (7-18); Glucose Level 129.0 mg/dL (74-106)
[2024-10-23] MEDS: POTASSIUM 25 MEQ EFFERV TAB PO ONE (16:41)
--- NOTE | 2024-10-23 19:12 | CON ---
Date of Consultation: 10/23/2024 Diagnoses: Constipation and colitis. History Of Present Illness: This is a case of a 79-year-old patient who for the last 2 months, she h as been having nausea, weight loss more than 25 pounds. She states she can barely eat. She saw Dr. Negron as an outpatient who has been working and part of the workup found to have also gallstones and s he was referred to my office since she has nausea and vomiting and we cannot rule out gallbladder to be part of the problem. She was sent to my office for cholecystectomy. Cholecystectomy was done several weeks ago. Still the symptoms as before preop are there. This time , it has been constipation and nausea. She has not had a bowel movement. She tried medications ever y day for constipation, but it has not improved, yesterday was worse and then she just decided to com e to the ER. She was admitted. Allergies: CODEINE. Medications: Reviewed. Tenormin, Norvasc, Ambien, aspirin, hydrochlorothiazide. Past Medical History: Nausea, vomiting, constipation, decreased appetite for the last 3 months. Past Surgical History: Include surgery, cholecystectomy, knee replacement, uterus lift. Last colonoscopy she say was about 2 years ago. EGD is supposed to be done today by Dr. Negron. Family History: Heart disease and colon cancer. Social History: She does not smoke. She does not drink alcohol. Physical Examination: General: The patient is awake and alert. HEENT: Pupils are equal and reactive. Anicteric. Neck: Supple. Chest: Clear. Abdomen: Soft and depressible. No guarding or rebound. She just have about 4 bowel movements in th e form of diarrhea. She does not have any tenderness at this moment. Extremities: Good capillary refill. Laboratory Data: Blood work reviewed. Decrease in leukocytosis. CAT scan of abdomen and pelvis rev iewed. Once again, they mentioned the thickening of the sigmoid area where they also found diverticu la in that region. The previous cholecystectomy area is intact. Assessment: 79-year-old patient with constipation, she has not been able to go even before the surge ry that we did. The nausea and vomiting continues, but the GI doctor is working on this. colon cancer and the thickening of the colon and the constipation in that region with distention pro ximal to that, the GI doctors are doing endoscopies. I noticed that she is supposed to have an EGD t maxime, but since she came to the hospital, it was not done and we asked her to also question the gastr oenterologist to see what is the best time to do a colonoscopy since she has the weight loss and the constipation in the sigmoid area. From the surgical standpoint, we have no objection to diet as long as the GI and primary doctor agree with that. Continue the antibiotics for colitis. NIKKO/FAWN Voice ID: [id number] Report ID: [id number]
[2024-10-23] MEDS: ASPIRIN EC 325 MG TABLET PO SCH (20:00)
[2024-10-23] MEDS: ATORVASTATIN 80 MG TAB PO SCH (20:00)
[2024-10-23] MEDS: ZOLPIDEM TARTRATE 10 MG TABLET PO PRN (20:00)
[2024-10-23 21:49] LABS: Anion Gap 10.0 mEq/L (5.0-15.0); BUN Blood Urea Nitrogen 15.0 mg/dL (7-18); Glucose Level 138.0 mg/dL (74-106); Potassium 3.0 mEq/L (3.5-5.1)
[2024-10-23] MEDS: KCL 20 MEQ/100 mL IVPB 20 MEQ/100 ML BAG IV SCH (22:36)
[2024-10-24 04:34] LABS: Absolute Lymphocytes (CBC) 1.2 K/uL (0.7-4.9); Hematocrit 25.9 % (36.0-45.0); Hemoglobin 9.2 g/dL (12.0-15.0); MCH 29.2 pg (27.0-35.0); MCHC 35.6 g/dL (32.0-36.0); MCV 82.1 fL (80-100); MPV 7.6 fL (7.6-11.3); Nucleated RBC Absolute Count 0.0 (0-0); Nucleated Red Blood Cells % 0.0 % (0-0); RBC Red Blood Cell Count 3.15 M/uL (3.86-4.86); White Blood Count 11.20 thou/uL (4.3-10.9)
[2024-10-24 04:45] LABS: Anion Gap 7.5 mEq/L (5.0-15.0); BUN Blood Urea Nitrogen 11.0 mg/dL (7-18); Glucose Level 100.0 mg/dL (74-106); Magnesium 1.8 mg/dL (1.6-2.4); Potassium 3.5 mEq/L (3.5-5.1)
[2024-10-24] MEDS: MAGNESIUM SULFATE 1 gm IVPB 1 GM/100 ML BAG IV ONE (05:15)
[2024-10-24] MEDS: POTASSIUM PHOS IN 0.9 % NACL 15 MMOL/250 ML BAG IV ONE (05:38)
--- NOTE | 2024-10-24 07:47 | RAD REPORT ---
EXAM: XR of the abdomen HISTORY: Abdominal pain Colon obstruction COMPARISON: 10/21/2024 FINDINGS: XR of the abdomen shows a moderate amount of air and stool throughout the colon.. Mild thic kened appearance to the distal rectosigmoid colon wall suspected. No free air. Cholecystectomy clips. IMPRESSION: Moderate fecal retention throughout the colon.
[2024-10-24] MEDS: AMLODIPINE 5 MG TAB PO SCH (09:31)
--- NOTE | 2024-10-24 09:48 | P.PN ---
Subjective Date of Service: 10/24/24 Chief Complaint: Abdominal pain Subjective: Improving (Patient had at least 7 bowel movements yesterday.) Physical Examination - Vital Signs Temperature: 97.9 F Blood Pressure: 136/63 Pulse: 80 Respirations: 18 Pulse Ox (%): 99 - Physical Exam General: In no apparent distress, Cooperative HEENT: Atraumatic, Normocephalic Respiratory: Clear to auscultation bilaterally, Normal air movement Cardiovascular: No edema, Normal pulses, Regular rate/rhythm, Normal S1 S2 Gastrointestinal: Soft and benign, Non-distended, Tenderness (Left lower quadrant tenderness) Assessment And Plan - Plan Assessment Patient is a 79-year-old female with recent cholecystectomy who presented to the hospital with abdominal pain. Her CT abdomen and pelvis revealed some sigmoid segment obstruction with proximal dilatation involving the descending transverse and ascending colon. She is having bowel movement with black tarry stools. Her hemoglobin has dropped 3 points. Her case has been discussed with the GI, general surgery was also notified of her admission. Large bowel obstruction Abdominal pain is GI bleedingrule out Anemia Transaminasemia Hyponatremia Hypokalemia Hypophosphatemia Hypertension Plan: Patient is having bowel movements Thickening of sigmoid and colon warranting colonoscopy Case discussed with Dr. Negron. Will review chart and decide on colonoscopy Patient has been having nausea and weight loss for the past few months Today's x-ray with moderate stool burden throughout her colon Continue IV fluid infusion Replace electrolytes as needed Zosyn for empiric coverage Antiemetics GI prophylaxis SCDs for DVT prophylaxis
--- NOTE | 2024-10-24 19:07 | PN ---
Date of Progress Note: 10/24/2024 Reason For Service: Abdominal pain, history of constipation with possible bowel obstruction. Subjective: The patient is doing well. Feeling better. She had full bowel movement yesterday. She is passing gas. Objective: Chest: Clear. Abdomen: Soft and depressible. Laboratory Data: Blood work shows WBC count of 11.2, coming down from 24 with platelets of 288, ____ 113. KUB today is still mild thickening appearance of the rectosigmoid area. No free air. M oderate fecal retention through the colon. Assessment: A 79-year-old patient with colitis. Also, has constipation, leukocytosis, feels better. She is advancing her diet. She is happy she saw her workers compensation claims examiner today and they are trying t o plan her future colonoscopy and esophagogastroduodenoscopy. From a surgical standpoint, no surgica l intervention is planned at this moment. NIKKO/FAWN Voice ID: [id number] Report ID: [id number]
[2024-10-25 06:22] LABS: Absolute Lymphocytes (CBC) 1.2 K/uL (0.7-4.9); Hematocrit 25.4 % (36.0-45.0); Hemoglobin 9.1 g/dL (12.0-15.0); MCH 29.3 pg (27.0-35.0); MCHC 35.8 g/dL (32.0-36.0); MCV 81.7 fL (80-100); MPV 7.8 fL (7.6-11.3); Nucleated RBC Absolute Count 0.0 (0-0); Nucleated Red Blood Cells % 0.1 % (0-0); RBC Red Blood Cell Count 3.11 M/uL (3.86-4.86); White Blood Count 6.60 thou/uL (4.3-10.9)
[2024-10-25 06:33] LABS: Anion Gap 9.7 mEq/L (5.0-15.0); Glucose Level 102 mg/dL (74-106); Magnesium 1.4 mg/dL (1.6-2.4); Potassium 2.7 mEq/L (3.5-5.1)
[2024-10-25 06:34] LABS: BUN Blood Urea Nitrogen < 3 mg/dL (7-18)
--- NOTE | 2024-10-25 08:58 | RAD REPORT ---
EXAM: XR of the abdomen HISTORY: Abdominal pain Colon obstruction COMPARISON: 10/24/2024 FINDINGS: XR of the abdomen shows a few mildly prominent gaseous loops of colon. Significant stool re tention remains likely present throughout the colon. Cecum is likely thickened in the right lower quadrant.. No free intraperitoneal air suspected.
[2024-10-25] MEDS ORDERED: KCL 20 MEQ/100 mL IVPB 20 MEQ/100 ML BAG IV SCH (09:00)
[2024-10-25] MEDS: POTASS/SODIUM PHOSPHATE 1 PKT POWD.PACK PO SCH (09:08)
[2024-10-25] MEDS: Magnesium Sulfate 2gm IVPB 2 G/50 ML BAG IV ONE (09:09)
--- NOTE | 2024-10-25 09:55 | P.DS ---
Admission Date: 10/22/24 Discharge Date: 10/26/24 Disposition: ROUTINE DISCHARGE Discharge Condition: FAIR Reason for Admission: Abdominal pain Brief History of Present Illness: 79 yrs old Female with past medical history of hypertension, hyperlipidemia, history of cholecystectomy who presented to ER with abdominal pain and constipation which has been going on for the last few days. The pain is slowly progressively getting worse associated with nausea and vomiting and also constipation. She had surgery on 10/11/[address] Philippe. Patient reports that she is visited the hospital multiple times since her surgery for abdominal pain also reports that she has follow-up in the clinic with her general surgeon. Patient reports the abdominal pain is mainly in the left lower quadrant and is severe. She reports vomiting multiple times today. She reports having constipation as well. Patient daughter at bedside is an additional historian, reports that since the surgery on 10/11/2024 patient has been having problems with ab dominal pain constipation. They have been attempting to use multiple laxative medications, magnesium citrate and enemas at home over the last 24 hours and that she started vomiting today so they brought her into the ER. Patient denies chest pain,, fever, cough. Does report some chills and intermittent mild shortness of breath. Patient at the time of discharge was alert oriented responsive denies any abdominal discomfort has some electrolyte imbalance we will proceed to advance diet electrolytes were replaced Hospital Course: Patient was admitted to the hospital conservative therapy seen by general surgery and by Dr. Negron CT scan Cholecystectomy. 3.5 cm collection of stool is present within the sigmoid colon. The rest of the colon is dilated proximal to this. Descending colon 4.5 cm. Transverse colon 6 cm. Ascending colon 6 cm. There is no evidence of diverticulitis mild thickening of the wall of the sigmoid colon may be secondary to muscular hypertrophy. At the time of discharge patient doing well denied any abdominal discomfort electrolyte imbalance has been corrected there was no abdominal tenderness patient tolerates a diet and her labs have been corrected we will plan to discharge she is be scheduled for an outpatient colonoscopy also electrolyte imbalance may be from hydrochlorothiazide that has been discontinued I will also sent him some antibiotics in case there is an element of infection as her white count was elevated blood cultures negative was also seen by Dr. Philippe Vital Signs/Physical Exam: Temp Pulse Resp BP Pulse Ox 97.4 F 84 18 152/70 H 98 10/25/24 04:00 10/25/24 09:09 10/25/24 04:00 10/25/24 09:09 10/25/24 04:00 Laboratory Data at Discharge: WBC 6.60 thou/uL (4.3-10.9) 10/25/24 05:47 Hgb 9.1 g/dL (12.0-15.0) L 10/25/24 05:47 Hct 25.4 % (36.0-45.0) L 10/25/24 05:47 Plt Count 159 thou/uL (152-406) 10/25/24 05:47 PT 11.5 SECONDS (10-13.0) 10/22/24 20:11 INR 1.02 10/22/24 20:11 Sodium 141 mEq/L (136-145) 10/25/24 05:47 Potassium 2.7 mEq/L (3.5-5.1) L D 10/25/24 05:47 BUN < 3 mg/dL (7-18) L 10/25/24 05:47 Creatinine 0.44 mg/dL (0.55-1.02) L 10/25/24 05:47 Glucose 102 mg/dL (74-106) 10/25/24 05:47 Phosphorus 1.8 mg/dL (2.5-4.9) L 10/25/24 05:47 Magnesium 1.4 mg/dL (1.6-2.4) L 10/25/24 05:47 Total Bilirubin 0.5 mg/dL (0.2-1.0) 10/23/24 05:12 AST 64 U/L (15-37) H 10/23/24 05:12 ALT 81 U/L (13-56) H 10/23/24 05:12 Alkaline Phosphatase 158 U/L (45-117) H D 10/23/24 05:12 Lipase 18 U/L (13-75) 10/22/24 20:11 Home Medications: Omeprazole 20 mg PO DAILY 11/06/16 atenoloL [Tenormin*] 50 mg PO DAILY 11/06/16 Amlodipine Besylate 5 mg PO DAILY 07/31/24 Atorvastatin Calcium [Lipitor] 80 mg PO BEDTIME 07/31/24 Losartan Potassium 100 mg PO DAILY 07/31/24 Aspirin [Aspirin EC 325 MG] 325 mg PO BID 10/10/24 Hydrocodone 5/APAP 325 [[place] 5/325*] 1 tab PO Q8H PRN 5 Days #15 tab 10/12/24 Amlodipine [Norvasc*] 5 mg PO DAILY 10/23/24 Zolpidem Tartrate [Ambien*] 10 mg PO BEDTIME PRN PRN 10/23/24 Ciprofloxacin HCl [Cipro] 500 mg PO BID 7 Days #14 tab 10/25/24 metroNIDAZOLE [Flagyl] 500 mg PO Q8H 7 Days #21 tab 10/25/24 New Medications: Ciprofloxacin HCl [Cipro] 500 mg PO BID 7 Days #14 tab metroNIDAZOLE [Flagyl] 500 mg PO Q8H 7 Days #21 tab Physician Discharge Instructions: Stop hydrochlorothiazide causing electrolyte imabalance/ Antibiotics sent to pharmacy /f/u with DR Negron for outpatient colonoscopy Followup: Buck Stratton MD [Primary Care Provider] -
[2024-10-25] MEDS: KCL 20 MEQ/100 mL IVPB 20 MEQ/100 ML BAG IV SCH (11:06)
[2024-10-25 18:11] LABS: Anion Gap 10.1 mEq/L (5.0-15.0); Glucose Level 122 mg/dL (74-106); Magnesium 2.0 mg/dL (1.6-2.4); Potassium 3.1 mEq/L (3.5-5.1)
[2024-10-25 18:19] LABS: BUN Blood Urea Nitrogen < 3 mg/dL (7-18)
[2024-10-25] MEDS: POLYETHYL GLY 3350 17 GM/DOSE PO ONE (20:26)
[2024-10-25] MEDS: POTASSIUM CL SA 10 MEQ TAB PO ONE (20:26)
[2024-10-26 01:53] VITALS: BMI 22.3
[2024-10-26 05:45] LABS: Absolute Lymphocytes (CBC) 1.4 K/uL (0.7-4.9); Hematocrit 28.2 % (36.0-45.0); Hemoglobin 10.1 g/dL (12.0-15.0); MCH 29.0 pg (27.0-35.0); MCHC 35.8 g/dL (32.0-36.0); MCV 81.1 fL (80-100); MPV 7.8 fL (7.6-11.3); Nucleated RBC Absolute Count 0.0 (0-0); Nucleated Red Blood Cells % 0.0 % (0-0); RBC Red Blood Cell Count 3.48 M/uL (3.86-4.86); White Blood Count 6.60 thou/uL (4.3-10.9)
[2024-10-26 05:52] LABS: Anion Gap 8.6 mEq/L (5.0-15.0); Glucose Level 105 mg/dL (74-106); Magnesium 1.6 mg/dL (1.6-2.4); Potassium 3.6 mEq/L (3.5-5.1)
[2024-10-26 06:34] LABS: BUN Blood Urea Nitrogen < 3 mg/dL (7-18)
[2024-10-26] MEDS: POTASSIUM CL SA 10 MEQ TAB PO ONE (08:10)
[2024-10-26] MEDS: POTASS/SODIUM PHOSPHATE 1 PKT POWD.PACK PO SCH (08:10)
--- NOTE | 2024-10-26 08:10 | RAD REPORT ---
Exam:Abdomen 1 View (KUB) Clinical history: Abdominal pain FINDINGS: Transverse colon is upper limits normal caliber. Remainder of the bowel gas pattern normal. No eviden ce of an obstruction. An extensive amount of stool does not appear to be present within the colon.
[2024-10-26 08:20] VITALS: TEMP 98
[2024-10-26] MEDS: MAGNESIUM SULFATE 1 gm IVPB 1 GM/100 ML BAG IV ONE (09:41)
[2024-10-26] MEDS: POLYETHYL GLY 3350 17 GM/DOSE PO PRN (09:42)
[2024-10-26] MEDS: DOCUSATE NA 100 MG CAP PO PRN (09:42)
[2024-10-26 10:44] VITALS: O2SAT 96
--- NOTE | 2024-10-26 10:45 | P.DS ---
Admission Date: 10/22/24 Discharge Date: 10/26/24 Disposition: ROUTINE DISCHARGE Discharge Condition: FAIR Reason for Admission: Abdominal pain Brief History of Present Illness: 79 yrs old Female with past medical history of hypertension, hyperlipidemia, history of cholecystectomy who presented to ER with abdominal pain and constipation which has been going on for the last few days. The pain is slowly progressively getting worse associated with nausea and vomiting and also constipation. She had surgery on 10/11/[address] Philippe. Patient reports that she is visited the hospital multiple times since her surgery for abdominal pain also reports that she has follow-up in the clinic with her general surgeon. Patient reports the abdominal pain is mainly in the left lower quadrant and is severe. She reports vomiting multiple times today. She reports having constipation as well. Patient daughter at bedside is an additional historian, reports that since the surgery on 10/11/2024 patient has been having problems with ab dominal pain constipation. They have been attempting to use multiple laxative medications, magnesium citrate and enemas at home over the last 24 hours and that she started vomiting today so they brought her into the ER. Patient denies chest pain,, fever, cough. Does report some chills and intermittent mild shortness of breath. Patient at the time of discharge was alert oriented responsive denies any abdominal discomfort has some electrolyte imbalance we will proceed to advance diet electrolytes were replaced Hospital Course: Patient was admitted to the hospital conservative therapy seen by general surgery and by Dr. Negron CT scan Cholecystectomy. 3.5 cm collection of stool is present within the sigmoid colon. The rest of the colon is dilated proximal to this. Descending colon 4.5 cm. Transverse colon 6 cm. Ascending colon 6 cm. There is no evidence of diverticulitis mild thickening of the wall of the sigmoid colon may be secondary to muscular hypertrophy. At the time of discharge patient doing well denied any abdominal discomfort electrolyte imbalance has been corrected there was no abdominal tenderness patient tolerates a diet and her labs have been corrected we will plan to discharge she is be scheduled for an outpatient colonoscopy also electrolyte imbalance may be from hydrochlorothiazide that has been discontinued I will also sent him some antibiotics in case there is an element of infection as her white count was elevated blood cultures negative was also seen by Dr. Philippe her potassium was corrected at the time of discharge Patient to take MiraLAX [id number] stop taking hydrochlorothiazide and to follow-up with Dr. Moura Vital Signs/Physical Exam: Temp Pulse Resp BP Pulse Ox 98.0 F 87 16 161/81 H 96 10/26/24 08:00 10/26/24 08:11 10/26/24 08:00 10/26/24 08:11 10/26/24 08:00 Laboratory Data at Discharge: WBC 6.60 thou/uL (4.3-10.9) 10/26/24 05:06 Hgb 10.1 g/dL (12.0-15.0) L D 10/26/24 05:06 Hct 28.2 % (36.0-45.0) L 10/26/24 05:06 Plt Count 221 thou/uL (152-406) D 10/26/24 05:06 PT 11.5 SECONDS (10-13.0) 10/22/24 20:11 INR 1.02 10/22/24 20:11 Sodium 139 mEq/L (136-145) 10/26/24 05:06 Potassium 3.6 mEq/L (3.5-5.1) D 10/26/24 05:06 BUN < 3 mg/dL (7-18) L 10/26/24 05:06 Creatinine 0.51 mg/dL (0.55-1.02) L 10/26/24 05:06 Glucose 105 mg/dL (74-106) 10/26/24 05:06 Phosphorus 2.0 mg/dL (2.5-4.9) L 10/26/24 05:06 Magnesium 1.6 mg/dL (1.6-2.4) 10/26/24 05:06 Total Bilirubin 0.5 mg/dL (0.2-1.0) 10/23/24 05:12 AST 64 U/L (15-37) H 10/23/24 05:12 ALT 81 U/L (13-56) H 10/23/24 05:12 Alkaline Phosphatase 158 U/L (45-117) H D 10/23/24 05:12 Lipase 18 U/L (13-75) 10/22/24 20:11 Home Medications: Omeprazole 20 mg PO DAILY 11/06/16 atenoloL [Tenormin*] 50 mg PO DAILY 11/06/16 Amlodipine Besylate 5 mg PO DAILY 07/31/24 Atorvastatin Calcium [Lipitor] 80 mg PO BEDTIME 07/31/24 Losartan Potassium 100 mg PO DAILY 07/31/24 Aspirin [Aspirin EC 325 MG] 325 mg PO BID 10/10/24 Hydrocodone 5/APAP 325 [[place] 5/325*] 1 tab PO Q8H PRN 5 Days #15 tab 10/12/24 Amlodipine [Norvasc*] 5 mg PO DAILY 10/23/24 Zolpidem Tartrate [Ambien*] 10 mg PO BEDTIME PRN PRN 10/23/24 Ciprofloxacin HCl [Cipro] 500 mg PO BID 7 Days #14 tab 10/25/24 metroNIDAZOLE [Flagyl] 500 mg PO Q8H 7 Days #21 tab 10/25/24 New Medications: Ciprofloxacin HCl [Cipro] 500 mg PO BID 7 Days #14 tab metroNIDAZOLE [Flagyl] 500 mg PO Q8H 7 Days #21 tab Physician Discharge Instructions: Stop hydrochlorothiazide causing electrolyte imabalance/ Antibiotics sent to pharmacy /f/u with DR Negron for outpatient colonoscopy Diet: Regular Activity: Ad leeroy Followup: Buck Stratton MD [Primary Care Provider] -
--- NOTE | 2024-10-26 10:47 | P.PN ---
Subjective Date of Service: 10/26/24 Chief Complaint: Abdominal pain Patient is improving doing well complaining of some abdominal discomfort was admitted with a possible bowel obstruction most likely from constipation Review of Systems Unremarkable General: Weakness Physical Examination - Vital Signs Temperature: 98.0 F Blood Pressure: 161/81 Pulse: 87 Respirations: 16 Pulse Ox (%): 96 - Physical Exam General: Alert, Oriented x3 Respiratory: Clear to auscultation bilaterally Cardiovascular: No edema, Regular rate/rhythm, Normal S1 S2 Assessment And Plan - Current Problems (Diagnosis) (1) Constipation Current Visit: Yes Status: Acute Plan: Patient is 79 years of age with recent cholecystectomy admitted with possible bowel obstruction from constipation was seen by Dr. Philippe she is currently doing well Main problem seems to be hypokalemia there is no history of recent diarrhea I suspect is from the hydrochlorothiazide diuretics these electrolytes will be replaced including magnesium possible discharge tomorrow on MiraLAX counseled her to stop taking hydrochlorothiazide Qualifiers: Constipation type: drug induced constipation Qualified Code(s): K59.03 - Drug induced constipation
[2024-10-26 12:02] VITALS: BP 148/72
== END 2024-10-26 12:03 | disposition home or self-care (01) | DRG 389 ==
LOC: ER 18:56 → ERHOLD 23:40 → 4TH 10-23 00:52
PROVIDERS: ADMIT Family Medicine; ATTEND Internal Medicine Sleep Medicine
DX: K56.609 Unspecified intestinal obstruction, unspecified as to partial versus complete obstruction (principal); E87.1 Hypo-osmolality and hyponatremia; K59.03 Drug induced constipation; K52.9 Noninfective gastroenteritis and colitis, unspecified; E87.6 Hypokalemia; E86.0 Dehydration; I10 Essential (primary) hypertension; D64.9 Anemia, unspecified; E78.00 Pure hypercholesterolemia, unspecified; E83.39 Other disorders of phosphorus metabolism; K21.9 Gastro-esophageal reflux disease without esophagitis; R74.01 Elevation of levels of liver transaminase levels; Z88.5 Allergy status to narcotic agent; Z90.49 Acquired absence of other specified parts of digestive tract; Z79.82 Long term (current) use of aspirin; Z79.899 Other long term (current) drug therapy; Z96.651 Presence of right artificial knee joint
CPT/HCPCS: 36415; 71045; 71260; 74018; 74177; 80048; 80053; 82248; 83605; 83690; 83735; 83880; 84100; 84145; 84484; 85025; 85610; 87040; 93005; 96361; 96374; 96375; 99285; J1650; J2270; J2405; J2470; J2543; J3475; J3480; J7030; J7040; Q9967